=== PATIENT | female | born 1945 | race Caucasian/White ===

== ENCOUNTER → 2017-10-16 13:46 | Outpatient (CLI) | payer MEDICARE, BC, SELFPAY ==
--- NOTE | 2017-10-16 | DI.MG.S_ITS ---
BILATERAL DIGITAL SCREENING MAMMOGRAM 3D/2D WITH CAD: 10/16/2017 CLINICAL: Routine screening. Comparison is made to exams dated: 08/08/2016 mammogram, 07/05/2015 mammogram, and 04/03/2014 mammogram - [facility]. There are scattered fibroglandular elements in both breasts. Current study was also evaluated with a Computer Aided Detection (CAD) system. No significant masses, calcifications, or other findings are seen in either breast. There has been no significant interval change. IMPRESSION: NEGATIVE There is no mammographic evidence of malignancy. A 1 year screening mammogram is recommended. This exam was interpreted at Station ID: [id number]. NOTE: For mammograms, a report in lay terms will be sent to the patient. Approximately 15% of breast malignancies will not be visualized mammographically. In the management of a palpable breast mass, a negative mammogram must not discourage biopsy of a clinically suspicious lesion. Electronically Signed By: Enmanuel ramirez/rosa:10/16/2017 15:38:31 letter sent: Normal Exam ACR BI-RADS Category 1: Negative 3341F
== END ==
PROVIDERS: PCP Family Medicine; Visit Provider Family Medicine
DX: Z12.31 Encounter for screening mammogram for malignant neoplasm of breast (principal)
CPT/HCPCS: 77063; 77067

== ENCOUNTER → 2018-08-26 14:01 | Outpatient (CLI) | payer MEDICARE, BC, SELFPAY ==
--- NOTE | 2018-08-26 | DI.US.S_ITS ---
PROCEDURE: US RENAL COMPLETE INDICATIONS: HYDRONEPHROSIS, history of urinary diversion procedure. TECHNIQUE: Real-time scanning was performed of the kidneys and bladder, with image documentation. COMPARISON: [facility], US, RENAL COMPLETE, 01/27/2017, 13:12. FINDINGS: Kidneys: Kidneys are normal in size. Right kidney measures 8.9 cm long; left kidney measures 8.6 cm long. Right renal cortical thickness is 0.9 cm; left renal cortical thickness is 1.2 cm. Renal cortical echotexture is normal. No hydronephrosis or nephrolithiasis. No suspicious solid mass lesions. Bladder: Neobladder morphology is mildly irregular. There is moderate amount of dependently layering, avascular heterogeneous material which is mobile consistent with debris. Ureteral jets are not visible. A catheter device is partially imaged. Miscellaneous: No free pelvic fluid. IMPRESSION: 1. No evidence of hydronephrosis. 2. A moderate amount of debris is present within the neobladder. Dictated by: Krista Palacios M.D. on 08/26/2018 at 15:49 Approved by: Krista Palacios M.D. on 08/26/2018 at 15:52
== END ==
PROVIDERS: PCP Family Medicine; Visit Provider Surgery
DX: N13.30 Unspecified hydronephrosis (principal)
CPT/HCPCS: 76770

== ENCOUNTER → 2018-10-04 14:10 | Outpatient (CLI) | payer MEDICARE, BC, SELFPAY ==
[2018-10-07 14:34] LABS: Fecal Immunochemical Test NOT DETECTED (NOT DETECTED)
== END ==
PROVIDERS: PCP Family Medicine; Visit Provider Family Medicine
DX: Z12.11 Encounter for screening for malignant neoplasm of colon (principal)
CPT/HCPCS: 82274

== ENCOUNTER → 2018-11-11 14:09 | Outpatient (CLI) | payer MEDICARE, BC, SELFPAY ==
[2018-11-11 15:43] LABS: Appearance Urine UA CLOUDY; Bilirubin Urine UA NEGATIVE (NEGATIVE); Color Urine UA YELLOW; Glucose Urine UA NEGATIVE (Negative); Ketones Urine UA NEGATIVE (NEGATIVE); Leukocyte Esterase Urine UA 2+ (NEGATIVE); Nitrite Urine UA POSITIVE (Negative); Occult Blood Urine UA 3+ (Negative); Protein Urine UA 2+ (Negative); Specific Gravity Urine UA 1.025 (1.000-1.035); Urobilinogen Urine UA 0.2 E.U./dL (0.2)
[2018-11-11 15:50] LABS: WBC Urine >100/HPF (0-5/HPF)
[2018-11-11 15:51] LABS: Bacteria Urine Many (>30); Culture Indicated Urine Specimen Cultured; RBC Urine 10-30/HPF (0-5/HPF); Squamous Epithelial Cell Urine 0-1 /HPF (0-5/HPF)
== END ==
PROVIDERS: PCP Family Medicine
DX: Z98.890 Other specified postprocedural states (principal)
CPT/HCPCS: 81001; 87077; 87086; 87186

== ENCOUNTER → 2018-11-11 16:47 | Outpatient (CLI) | payer MEDICARE, BC, SELFPAY ==
--- NOTE | 2018-11-11 | DI.MG.S_ITS ---
BILATERAL DIGITAL SCREENING MAMMOGRAM 3D/2D WITH CAD: 11/11/2018 CLINICAL: Routine screening. Comparison is made to exams dated: 10/16/2017 mammogram, 08/08/2016 mammogram, and 07/05/2015 mammogram - [facility]. There are scattered fibroglandular elements in both breasts. Current study was also evaluated with a Computer Aided Detection (CAD) system. No significant masses, calcifications, or other findings are seen in either breast. There has been no significant interval change. IMPRESSION: NEGATIVE There is no mammographic evidence of malignancy. A 1 year screening mammogram is recommended. This exam was interpreted at Station ID: [id number]. NOTE: For mammograms, a report in lay terms will be sent to the patient. Approximately 15% of breast malignancies will not be visualized mammographically. In the management of a palpable breast mass, a negative mammogram must not discourage biopsy of a clinically suspicious lesion. Electronically Signed By: Dennis george/rosa:11/11/2018 19:03:01 letter sent: Normal Exam ACR BI-RADS Category 1: Negative 3341F
== END ==
PROVIDERS: PCP Family Medicine; Visit Provider Family Medicine
DX: Z12.31 Encounter for screening mammogram for malignant neoplasm of breast (principal)
CPT/HCPCS: 77063; 77067

== ENCOUNTER → 2019-02-21 13:56 | Outpatient (CLI) | payer MEDICARE, BC, SELFPAY ==
[2019-02-21 15:42] LABS: Appearance Urine UA SL CLOUDY; Bilirubin Urine UA NEGATIVE (NEGATIVE); Color Urine UA YELLOW; Glucose Urine UA NEGATIVE (Negative); Ketones Urine UA NEGATIVE (NEGATIVE); Leukocyte Esterase Urine UA 3+ (NEGATIVE); Nitrite Urine UA NEGATIVE (Negative); Occult Blood Urine UA 3+ (Negative); Protein Urine UA 1+ (Negative); Urobilinogen Urine UA 0.2 E.U./dL (0.2)
[2019-02-21 16:22] LABS: RBC Urine 5-10/HPF (0-5/HPF); WBC Urine 10-30/HPF (0-5/HPF)
[2019-02-21 16:23] LABS: Amorphous Sediment Urine 1+; Bacteria Urine Many (>30); Culture Indicated Urine Specimen Cultured; Squamous Epithelial Cell Urine 0-1 /HPF (0-5/HPF)
== END ==
PROVIDERS: PCP Family Medicine; Visit Provider Physician Assistant Medical
DX: Z98.890 Other specified postprocedural states (principal)
CPT/HCPCS: 81001; 87077; 87086; 87186

== ENCOUNTER → 2019-09-07 14:00 | Outpatient (CLI) | payer MEDICARE, BC, SELFPAY ==
--- NOTE | 2019-09-07 | DI.US.S_ITS ---
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 COMPARISON: [facility], , RENAL COMPLETE, 08/26/2018, 14:21. FINDINGS: Kidneys: Kidneys are normal in size. Right kidney measures 8.7 cm long; left kidney measures 9.2 cm long. Right renal cortical thickness is 1.0 cm; left renal cortical thickness is 1.4 cm. Renal cortical echotexture is normal. No hydronephrosis or nephrolithiasis. No suspicious solid mass lesions. 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 Pre-void bladder volume is 47 mL. No discrete bladder wall abnormality is seen. Pre-void images demonstrate no intraluminal masses or stones. Miscellaneous: No free pelvic fluid. IMPRESSION: No gross abnormality is seen in bilateral kidneys. No gross abnormality is seen in partially distended neobladder. Dictated by: Bairon Gay M.D. on 09/07/2019 at 15:50 Approved by: Bairon Gay M.D. on 09/07/2019 at 15:53
[2019-09-07 15:26] LABS: Add Manual Diff / Slide Review NO; Basophils Absolute Auto 0 /uL (0-100); Basophils Percent Auto 0.5 % (0-2); Eosinophils Absolute Auto 100 /uL (0-450); Eosinophils Percent Auto 2.1 % (2-4); Hematocrit 35.1 % (36-46); Hemoglobin 11.7 g/dL (12.0-16.0); Lymphocytes Absolute Auto 800 /uL (1100-4500); Lymphocytes Percent Auto 14.3 % (25-40); Mean Corpuscular HGB Conc 33.5 % (30-36); Mean Corpuscular Hemoglobin 30.5 PG (26-34); Mean Corpuscular Volume 91.1 fL (80-100); Monocytes Absolute Auto 400 /uL (0-900); Monocytes Percent Auto 8.3 % (3-14); Neutrophils Absolute Auto 4000 /uL (1500-7000); Neutrophils Percent Auto 74.8 % (50-75); Platelet Count 243 X10^3/uL (150-400); Red Blood Cell Count 3.85 X10^6/uL (4.0-5.2); Red Cell Distribution Width 14.5 % (11.6-14.8); White Blood Cell Count 5.3 X10^3/uL (4.5-11.0)
[2019-09-07 15:48] LABS: BUN Creatinine Ratio 23.6 (6-22); Blood Urea Nitrogen 29 mg/dL (7-17); Carbon Dioxide 24 mmol/L (22-32); Chloride 106 mmol/L (98-107); Estimated Glomerular Filt Rate 42.5 mL/min (>60); Glucose 101 mg/dL (80-110); HEMOLYSIS < 15 (0-50); Potassium 4.6 mmol/L (3.4-5.1); Sodium 137 mmol/L (137-145)
[2019-09-07 16:37] LABS: Vitamin B12 > 1000 pg/mL (239-931)
== END ==
PROVIDERS: PCP Family Medicine; Referring Provider Urology; Visit Provider Urology
DX: N30.10 Interstitial cystitis (chronic) without hematuria (principal); Z90.6 Acquired absence of other parts of urinary tract
CPT/HCPCS: 36415; 76770; 80048; 82607; 85025

== ENCOUNTER → 2019-09-22 12:31 | Outpatient (CLI) | payer MEDICARE, BC, SELFPAY ==
[2019-09-22 15:42] LABS: Appearance Urine UA CLOUDY; Bilirubin Urine UA NEGATIVE (NEGATIVE); Color Urine UA YELLOW; Glucose Urine UA NEGATIVE (Negative); Ketones Urine UA TRACE (NEGATIVE); Leukocyte Esterase Urine UA 2+ (NEGATIVE); Nitrite Urine UA NEGATIVE (Negative); Occult Blood Urine UA 3+ (Negative); Protein Urine UA 2+ (Negative); Specific Gravity Urine UA 1.025 (1.000-1.035); Urobilinogen Urine UA 0.2 E.U./dL (0.2)
[2019-09-22 15:56] LABS: pH Urine UA 5.5 (4.5-8.0)
[2019-09-22 16:00] LABS: Amorphous Sediment Urine 1+; Bacteria Urine Moderate (10-30); Culture Indicated Urine Specimen Cultured; Mucus Urine 1+ (Negative); RBC Urine 10-30/HPF (0-5/HPF); Squamous Epithelial Cell Urine 0-1 /HPF (0-5/HPF); WBC Urine >100/HPF (0-5/HPF)
== END ==
PROVIDERS: PCP Family Medicine; Referring Provider Urology; Visit Provider Urology
DX: R30.0 Dysuria (principal)
CPT/HCPCS: 81001; 87077; 87086; 87186

== ENCOUNTER → 2019-12-09 14:17 | Outpatient (CLI) | payer MEDICARE, BC, SELFPAY ==
--- NOTE | 2019-12-09 | DI.MG.S_ITS ---
BILATERAL DIGITAL SCREENING MAMMOGRAM 3D/2D WITH CAD: 12/09/2019 CLINICAL: Routine screening. Comparison is made to exams dated: 11/11/2018 mammogram, 10/16/2017 mammogram, and 08/08/2016 mammogram - [facility]. There are scattered fibroglandular elements in both breasts. Current study was also evaluated with a Computer Aided Detection (CAD) system. There is a new 0.7 cm asymmetry in the left breast posterior depth superior region seen on the mediolateral oblique view only 15.5 cm from the nipple. No other significant masses, calcifications, or other findings are seen in either breast. IMPRESSION: INCOMPLETE: NEEDS ADDITIONAL IMAGING EVALUATION New left breast asymmetry is indeterminate. A diagnostic mammogram and ultrasound is recommended. This exam was interpreted at Station ID: [id number]. NOTE: For mammograms, a report in lay terms will be sent to the patient. Approximately 15% of breast malignancies will not be visualized mammographically. In the management of a palpable breast mass, a negative mammogram must not discourage biopsy of a clinically suspicious lesion. Electronically Signed By: Jose Juan Gale M.D. jr/:12/09/2019 15:59:52 letter sent: Additional Imaging Needed ACR BI-RADS Category 0: Incomplete 3340F
== END ==
PROVIDERS: PCP Family Medicine; Referring Provider Family Medicine; Visit Provider Family Medicine
DX: Z12.31 Encounter for screening mammogram for malignant neoplasm of breast (principal)
CPT/HCPCS: 77063; 77067

== ENCOUNTER → 2020-01-03 14:54 | Outpatient (CLI) | payer MEDICARE, BC, SELFPAY ==
--- NOTE | 2020-01-03 15:11 | DI.MG.S_ITS ---
Patient Name: TAMMY SANTILLAN date: 1945 Sex: F Attending Physician: Christi Indications: Date: 01/03/2020 15:02 At the request of: NGHIA BENITEZ Procedure: MM special view LT UNILATERAL LEFT DIGITAL DIAGNOSTIC MAMMOGRAM 3D/2D WITH ADDITIONAL VIEWS: 01/03/2020 CLINICAL: Additional evaluation requested from prior study. Comparison is made to exams dated: 12/09/2019 mammogram, 11/11/2018 mammogram, 10/16/2017 mammogram, 08/08/2016 mammogram, 07/05/2015 mammogram, and 04/03/2014 mammogram - [facility]. There are scattered fibroglandular elements in left breast. There is a benign 0.7 cm asymmetry in the left breast posterior depth superior region seen on the mediolateral oblique view only. Upon review of multiple prior mammograms dating back to 04/03/2014, this asymmetry does not appear significantly changed in size or shape, and is therefore considered benign. The lesion is slightly more prominent on the current exam and the exam from 12/09/2019, which is most likely due to differences in patient positioning. No other significant masses or calcifications are seen in the breast. IMPRESSION: BENIGN There is no mammographic evidence of malignancy. A 1 year screening mammogram is recommended. This exam was interpreted at Station ID: [id number]. NOTE: For mammograms, a report in lay terms will be sent to the patient. Approximately 15% of breast malignancies will not be visualized mammographically. In the management of a palpable breast mass, a negative mammogram must not discourage biopsy of a clinically suspicious lesion. Electronically Signed By: Teja salazar/rosa:01/03/2020 16:49:18 Continued Report - Page 2 of 2 Patient Name: TAMMY SANTILLAN date: 1945 Sex: F Attending Physician: Christi Indications: Date: 01/03/2020 15:02 At the request of: NGHIA BENITEZ Procedure: MM special view LT letter sent: Normal Exam ACR BI-RADS Category 2: Benign Finding(s) 3342F
== END ==
PROVIDERS: PCP Family Medicine; Referring Provider Family Medicine; Visit Provider Family Medicine
DX: R92.8 Other abnormal and inconclusive findings on diagnostic imaging of breast (principal); N64.89 Other specified disorders of breast
CPT/HCPCS: 77065; G0279

== ENCOUNTER → 2020-02-14 14:32 | Outpatient (CLI) | payer MEDICARE, BC, SELFPAY ==
[2020-02-14 15:26] LABS: BUN Creatinine Ratio 26.3 (6-22); Blood Urea Nitrogen 36 mg/dL (7-17); Calcium 9.5 mg/dL (8.4-10.2); Carbon Dioxide 29 mmol/L (22-32); Chloride 102 mmol/L (98-107); Estimated Glomerular Filt Rate 37.5 mL/min (>60); Glucose 114 mg/dL (80-110); HEMOLYSIS 33 (0-50); Potassium 4.9 mmol/L (3.4-5.1); Sodium 138 mmol/L (137-145)
== END ==
PROVIDERS: PCP Family Medicine; Referring Provider Family Medicine; Visit Provider Family Medicine
DX: K56.609 Unspecified intestinal obstruction, unspecified as to partial versus complete obstruction (principal); R10.9 Unspecified abdominal pain
CPT/HCPCS: 36415; 80048

== ENCOUNTER → 2020-02-17 11:40 | Outpatient (CLI) | payer MEDICARE, BC, SELFPAY ==
--- NOTE | 2020-02-17 13:37 | DI.CT.S_ITS ---
PROCEDURE: CT ABDOMEN PELVIS W CON INDICATIONS: abd pain with intermittent obstruction TECHNIQUE: After the administration of oral and intravenous contrast, 5 mm thick sections acquired from the diaphragms to the symphysis. 5 mm thick coronal and sagittal reformats were performed. For radiation dose reduction, the following was used: automated exposure control, adjustment of mA and/or kV according to patient size. COMPARISON: [facility], CT, IVP (ABD & PEL WWO CONTRAST), 08/12/2013, 11:08. FINDINGS: Image quality: Excellent. ABDOMEN: Lung bases: Minimal atelectasis at the right lung base. No pleural effusion. Heart size is normal. Solid organs: Liver is normal in size and enhancement. Gallbladder is unremarkable. Biliary system is non-dilated. Pancreas enhances normally. Spleen is normal in size and enhancement. No adrenal nodules. Kidneys are normal in size and enhancement, without hydronephrosis. Peritoneum and bowel: Bladder or neobladder and ostomy in the right lower quadrant. Pouch has a trabeculated appearance. Pouch is mildly distended. No contrast is seen in the pouch. Ostomy has a similar appearance to 2014. Calcifications at the left lateral wall are unchanged. No hydroureter. Majority of the contrast is in the distal ileum and extending into the descending colon. No small bowel obstruction. Appendix is absent. Mild diverticulosis. No diverticulitis. Stomach is not distended. No pneumoperitoneum. No free fluid. Nodes and vessels: No retroperitoneal or mesenteric adenopathy. A thickening in the right inferior pelvis is unchanged since 2014. Aorta and inferior vena cava are normal in caliber. Miscellaneous: No ventral hernias. PELVIS: Uterus is absent. Miscellaneous: No inguinal hernias or adenopathy. Bones: No suspicious bony lesions. Sarcopenia. Scoliosis. No vertebral body compression fractures. Left hip total arthroplasty. IMPRESSION: 1. Kock pouch and ostomy in the right lower quadrant have a similar appearance to 2014. No etiology for intermittent bowel obstruction is seen. 2. No small bowel obstruction. No hydronephrosis. No free fluid. Dictated by: Stone Lowe M.D. on 02/17/2020 at 14:29 Approved by: Stone Lowe M.D. on 02/17/2020 at 14:45
== END ==
PROVIDERS: PCP Family Medicine; Referring Provider Family Medicine; Visit Provider Family Medicine
DX: R10.9 Unspecified abdominal pain (principal); K56.609 Unspecified intestinal obstruction, unspecified as to partial versus complete obstruction; Z93.2 Ileostomy status
CPT/HCPCS: 74177; Q9967

== ENCOUNTER → 2020-06-06 09:47 | Outpatient (CLI) | payer MEDICARE, BC, SELFPAY ==
[2020-06-06] MEDS: COVID-19 VACC #1, MRNA(MOD) 100 MCG/0.5 ML VIAL IM (09:55)
== END ==
PROVIDERS: PCP Family Medicine; Visit Provider Internal Medicine
DX: Z23 Encounter for immunization (principal)
CPT/HCPCS: 0011A; 91301

== ENCOUNTER → 2020-07-05 12:55 | Outpatient (CLI) | payer MEDICARE, BC, SELFPAY ==
[2020-07-05] MEDS: COVID-19 VACC #2, MRNA(MOD) 100 MCG/0.5 ML VIAL IM (13:04)
== END ==
PROVIDERS: PCP Family Medicine; Visit Provider Internal Medicine
DX: Z23 Encounter for immunization (principal)
CPT/HCPCS: 0012A; 91301

== ENCOUNTER → 2021-03-14 12:49 | Outpatient (CLI) | payer MEDICARE, BC, SELFPAY ==
[2021-03-14 14:19] LABS: Add Manual Diff / Slide Review NO; Basophils Absolute Auto 100 /uL (0-100); Basophils Percent Auto 0.9 % (0-2); Eosinophils Absolute Auto 200 /uL (0-450); Hematocrit 41.7 % (36-46); Hemoglobin 13.5 g/dL (12.0-16.0); Lymphocytes Absolute Auto 1400 /uL (1100-4500); Lymphocytes Percent Auto 19.6 % (25-40); Mean Corpuscular HGB Conc 32.3 % (30-36); Mean Corpuscular Hemoglobin 29.9 PG (26-34); Mean Corpuscular Volume 92.3 fL (80-100); Monocytes Absolute Auto 600 /uL (0-900); Monocytes Percent Auto 8.2 % (3-14); Neutrophils Absolute Auto 4700 /uL (1500-7000); Neutrophils Percent Auto 68.3 % (50-75); Platelet Count 317 X10^3/uL (150-400); Red Blood Cell Count 4.52 X10^6/uL (4.0-5.2); Red Cell Distribution Width 15.4 % (11.6-14.8); White Blood Cell Count 6.9 X10^3/uL (4.5-11.0)
[2021-03-14 14:24] LABS: Hemoglobin A1C% w Est Avg Glu 5.8 % (4.0-6.0)
[2021-03-14 14:31] LABS: BUN Creatinine Ratio 19.8 (6-22); Blood Urea Nitrogen 39 mg/dL (7-17); Calcium 9.9 mg/dL (8.4-10.2); Carbon Dioxide 22 mmol/L (22-32); Chloride 103 mmol/L (98-107); Estimated Glomerular Filt Rate 24.6 mL/min (>60); Glucose 132 mg/dL (80-110); HEMOLYSIS < 15 (0-50); Potassium 4.5 mmol/L (3.4-5.1); Sodium 137 mmol/L (137-145)
== END ==
PROVIDERS: PCP Family Medicine; Referring Provider Orthopaedic Surgery; Visit Provider Orthopaedic Surgery
DX: R73.9 Hyperglycemia, unspecified (principal); Z01.812 Encounter for preprocedural laboratory examination; N39.0 Urinary tract infection, site not specified
CPT/HCPCS: 36415; 80048; 83036; 85025

== ENCOUNTER → 2021-03-20 11:37 | Outpatient (CLI) | payer MEDICARE, BC, SELFPAY ==
[2021-03-20 12:48] LABS: COVID19 -Nasal RAPID Negative (Negative)
== END ==
PROVIDERS: PCP Family Medicine; Referring Provider Nurse Practitioner Family; Visit Provider Nurse Practitioner Family
DX: Z20.822 Contact with and (suspected) exposure to COVID-19 (principal)
CPT/HCPCS: 87635; C9803

== ENCOUNTER 2021-03-22 06:07 | Inpatient (IN) | payer MEDICARE, BC, SELFPAY ==
[2021-03-19 13:45] VITALS: BMI 23.3
[2021-03-22] VITALS (15 sets, daily range): BP systolic 103–161; BP diastolic 38–95; PULSE 61–92; RESP 9–18; TEMP 36.1–36.8; O2SAT 94–100; BMI 24.5
--- NOTE | 2021-03-22 06:00 | DI.RAD.S_ITS ---
PROCEDURE: XR HIP W PEL IF DONE RT 2V INDICATIONS: postop prosthesis placement TECHNIQUE: AP pelvis and lateral view of the right hip acquired. COMPARISON: [facility], CR, XR PELVIS WITH BILATERAL LATERAL HIPS, 02/25/2021, 14:00. [facility], CR, XR PELVIS 1-2V, 03/22/2021, 9:08. [facility], CR, HIP 2V LEFT, 02/24/2012, 15:32. FINDINGS: Bones: Patient is status post right hip arthroplasty, with hardware components in expected positions. The hip joint appears congruent. The visualized bony structures appear intact. There is prior left total hip arthroplasty with anatomic left hip alignment. Soft tissues: Overlying postoperative changes are noted. No suspicious soft tissue densities. IMPRESSION: Postop changes from right total hip arthroplasty with anatomic alignment. Dictated by: Bairon Gay M.D. on 03/22/2021 at 12:56 Approved by: Bairon Gay M.D. on 03/22/2021 at 12:56
[2021-03-22] MEDS: PREGABALIN 75 MG CAPSULE PO (07:09)
[2021-03-22] MEDS: CELECOXIB 200 MG CAPSULE PO (07:09)
[2021-03-22] MEDS: ACETAMINOPHEN 325 MG TABLET 975 MG PO (07:09)
[2021-03-22] MEDS: LACTATED RINGERS 1,000 ML 42 ML IV ×2 (07:10→09:28)
[2021-03-22] MEDS: VANCOMYCIN 1,000 MG/200 ML PIGGYBACK 200 MG IV (07:10)
--- NOTE | 2021-03-22 07:44 | PM.PREOP ---
Pre-operative Note COVID-19 COVID-19 status: Negative Interval Note History & Physical reviewed/Exam performed by Physician: Yes Changes to H&P: No
--- NOTE | 2021-03-22 07:46 | PM.OP.1 ---
Operative Date/Time/Diagnoses Date of procedure: 03/22/21 Time of procedure: 08:00 Pre-op diagnosis: right hip OA Post-op diagnosis: same Procedure & Clinicians Procedure: Right total hip arthroplasty posterior approach Same procedure as scheduled: Yes Indications: The patient has had progressively worsening right hip pain with radiographic changes consistent with arthritis. Non-operative management has failed and the patient has requested total hip replacement. The risks, benefits and alternatives to surgery were discussed with the patient prior to proceeding. Risks discussed included, but were not limited to, failure to relieve pain, leg length discrepancy, dislocation, stiffness, infection, nerve damage, deep venous thrombosis, pulmonary embolism, stroke, coma, heart attack, permanent paralysis and , as well as the potential need for eventual revision of the prosthetic. Surgeon: Minerva Reynolds Senior Automation Engineer: Sandee Reina Anesthesia Type: Spinal Operative Notes Findings: Severe right hip osteoarthritis, adequate stability and bone quality Closure Type: primary Specimen(s): none sent Prosthetic devices, grafts, tissues, transplants, or devices: [employer]hew 50 R3 cup, 32 x 50 neutral poly liner, size 6 standard offset anthology, 32 +0 Oxinium head Applied: drain(s) Estimated Blood Loss (mL): 250 Blood products transfused: none Procedure in detail: The patient was seen in the pre-operative area, where the patient identified the right hip as the operative site and this was marked with my initials. The patient received pre-operative antibiotics and was taken to the operating room and placed on the operative table in the left lateral decubitus position after satisfactory anesthesia. A homeopathic doctor out was performed. The right leg was prepared from the ankle to the iliac crest with ChloroPrep in the usual fashion and draped through sterile drapes. The hip was approached through an approximately 20 cm incision centered over the greater trochanter and curving gently posteriorly as it went proximally. This was carried sharply to the fascia rohna, which was divided and retracted with a self retaining retractor. The trochanteric bursa was excised with care being taken to avoid the sciatic nerve, which was identified and protected throughout the case. The short external rotators were incised and the capsulomuscular flap was raised and tagged for later repair. The hip was dislocated, and a femoral neck osteotomy performed approximately 15 mm above the lesser trochanter. Retractors were placed around the femur. The canal was opened with a box cutting osteotome, followed by a T handled reamer and a lateralizing reamer. The chili pepper broach was then used, followed by sequential broaching until there was good stability of the broach in the femur. Retractors were placed to expose the acetabulum. The labrum and central soft tissues were removed. Reaming was performed initially going up in 2 mm increments, then 1 mm increments until good bite was obtained with an odd sized reamer. The cup 1 mm larger than the last reamer was then inserted using the appropriate anteversion guides. It was further stabilized with a single screw. A trial neutral liner was placed. The broach was placed in the canal. A trial head and neck were then placed and the hip relocated and checked for leg length and stability. An intraoperative film confirmed the component position and no evidence of fracture. The patient was stable in the position of sleep, of squatting, and could be put through a range of motion with 45 degrees internal rotation without dislocation. At 90 degrees flexion, internal rotation to 70?was possible before dislocation. This was felt to be satisfactory and the appropriate components were opened, and the trials were removed. It was felt that standard anthology would work and I did a standard anthology broaches which were inserted without difficulty. The acetabular liner was impacted into position. The final stem was then impacted into the prepared femoral canal. A brief Betadine soak was performed while trialing with head options. The hip was meticulously irrigated with normal saline. Finally the femoral head was impacted onto the stem. The acetabulum was cleared of all material and the hip relocated one final time. The capsulomuscular flap was then repaired to the greater trochanter though an awl hole using the tag sutures. The short external rotators were repaired with a nonabsorbable suture. A deep drain was placed and brought out anteriorly. The fascia rohan was closed with Vicryl. The subcutaneous layer was closed with barbed sutures and SteriStrips. An Aquacel Ag dressing was applied and the patient was taken to recovery having tolerated the procedure well. Complications: none Post-operative Condition: stable Disposition: Acute Care Plan for aftercare: The patient will be maintained on a standard total hip replacement protocol with weight bearing as tolerated and posterior hip precautions. The patient will receive Aspirin and sequential compression devices for DVT prophylaxis. The patient will be discharged home when safe for the home environment.
--- NOTE | 2021-03-22 08:00 | DI.RAD.S_ITS ---
PROCEDURE: XR PELVIS 1-2V INDICATIONS: INNER OP RT HIP TECHNIQUE: 1 view of the lower pelvis acquired. COMPARISON: [facility], , PELVIS 1 OR 2VW, 08/22/2014, 13:05. FINDINGS: Bones: Patient is status post right total hip arthroplasty, with hardware components in expected positions. The hip joint appears congruent. The visualized bony structures appear intact. There is prior left total hip arthroplasty. Soft tissues: Overlying postoperative changes are noted. No suspicious soft tissue densities. IMPRESSION: Postop changes from right total hip arthroplasty with anatomic right hip alignment. Dictated by: Bairon Gay M.D. on 03/22/2021 at 12:47 Approved by: Bairon Gay M.D. on 03/22/2021 at 12:47
[2021-03-22] MEDS: CEFAZOLIN 1 GM VIAL 2 GM IV (08:05)
[2021-03-22] MEDS: TRANEXAMIC ACID 1,000 MG VIAL 1000 MG INJ ×2 (08:19→09:30)
--- NOTE | 2021-03-22 08:33 | SUR.OPER ---
Lateral on padded OR bed. Gel axillary roll. Arms secured on padded armboard with pillow supporting top arm. Padded hip positioner braces x4 - anterior and posterior chest and pelvis. Additional gel pad used anterior pelvis. Gel pad under bottom leg from knee to foot and secured with tape over sheet.
[2021-03-22] MEDS: BUPIVACAINE LIPOSOME 266 MG/20 ML VIAL INJ (08:39)
[2021-03-22] MEDS: BUPIVACAINE 0.25% (PF) 60 ML, EPINEPHrine 0.3 MG INJ (08:39)
[2021-03-22] MEDS: SODIUM CHLORIDE IRRIG SOLUTION 250 ML, POVIDONE-IODINE SPONGE STICKS 1 APPLIC IRR (08:42)
[2021-03-22] MEDS: ONDANSETRON 4 MG/2 ML INJ IV ×3 (10:22→17:29)
--- NOTE | 2021-03-22 10:38 | SUR.PHASEI ---
medicated with zofran for nausea, stable pacu stay, report attempted, RN unavailable.
[2021-03-22] MEDS: LACTATED RINGERS 1,000 ML 125 ML IV ×2 (12:20→21:02)
[2021-03-22] MEDS: IBUPROFEN 400 MG TABLET PO ×3 (12:32→21:02)
--- NOTE | 2021-03-22 15:10 | PT.IIE ---
Current Diagnoses Unilateral primary osteoarthritis, right hip (03/22/21) Surgery Performed Operation Date: 03/22/21 07:45 Actual Procedures p Total Hip Arthroplasty(Right) - Minerva Reynolds MD Surgical History (Last Updated 03/19/21 @ 14:10 by Zo Bobby, RN) Status post hysterectomy Medical History (Last Updated 03/19/21 @ 14:10 by Zo Bobby, RN) Intermittent small bowel obstruction due to adhesions Osteoarthritis Physical Therapy Inpatient Evaluation/Re-Eval M1 PT/OT-IP Prior Functional Status Start: 03/22/21 16:58 Freq: NEEDED Status: Active Protocol: Document 03/22/21 15:10 AB (Rec: 03/22/21 17:07 AB [email or web address]) Medical Review Prior Functional Status Medical History Reviewed Yes Communication able to make needs known Mobility and Gait pt stated that she is indpeendent with all mobilities and ambulation without AD Social History Household Members spouse Living Arrangements House Number of Floors (Floors) One Floor Number of Stairs To Enter/Railing? 2 steps without rails to enter Home Environment High Toilet,Walk in Shower Home Equipment Front Wheel Walker,Straight Cane,Shower Seat without Backrest,Hand Held Shower,Long Handled Shoe Horn,Supervisor [employer], Sock Aid,Grab Bars In Shower M2 PT-IP Current Condition Start: 03/22/21 16:58 Freq: NEEDED Status: Active Protocol: Document 03/22/21 15:10 AB (Rec: 03/22/21 17:07 AB [id number]) Physical Therapy Current Condition Current Condition Evaluation Date 03/22/21 Treatment Diagnosis s/p R MICHELE posterior approach; difficulty in walking Onset Date 03/22/21 M3 PT-IP Subjective Start: 03/22/21 16:58 Freq: NEEDED Status: Active Protocol: Document 03/22/21 15:10 AB (Rec: 03/22/21 17:07 AB [id number]) Subjective Physical Therapy Visit Type Type Initial Evaluation Visit Start Time 15:10 Visit Stop Time 16:10 Total Visit Minutes 60 Number of CYLINDER MACHINE OPERATOR Visits 0 Physical Therapy Visit Comments Patient Comments agreeable to do PT Therapy Pain Assessment Pain Present Pain Present Denied Pain M4 PT-IP Mobility and Gait Start: 03/22/21 16:58 Freq: NEEDED Status: Active Protocol: Document 03/22/21 15:10 AB (Rec: 03/22/21 17:07 [email or web address]) PT-Bed Mobility Assessment Supine to Sit Supine to Sit Standby Assistance Sit to Supine Sit to Supine Minimal Assistance PT-Transfer Assessment Sit to and From Stand Sit to and from Stand Moderate Assistance,1 Person Assistance,Use of Upper Extremities Equipment Transfer Assistive Device Gait Belt,Front Wheeled Walker Orthotic/Prosthetic Devices or Brace: No Comments Mobility Comments educated pt on hip precautions . BP supine: 138/56. completed supine to sit SBA. pt was able to sit on EOB SBA. c/o dizziness. BP sittin/68. completed sit to stand mod A and cues but with increase dizziness and has to sit back down. pt stated that everything is moving and requested to lay back in bed. scooted towards the HOB SBA. completed sit to supine min A with LE elevation. positioned in bed. BP in bed: 140/57. call light and table placed within reach. caregiver training set up with spouse at 10am tomorrow. PT-Balance Assessment Sitting Balance and Reactions Static Sitting Balance Ability Good Dynamic Sitting Balance Ability Good Standing Balance and Reactions Static Standing Balance Ability Fair Dynamic Standing Balance Ability Fair Device Used FWW M5 PT-IP Objective Assessments Start: 03/22/21 16:58 Freq: NEEDED Status: Active Protocol: Document 03/22/21 15:10 AB (Rec: [facility]21 [facility] Orientation Orientation/Cognition Level of Alertness Alert Orientation Name Language Function Ability No Deficits Noted Safety Awareness Understands Safety Issues Memory Description No Deficits Noted Gross Range of Motion Lower Extremity ROM Assessment Within Functional Limits Strength Lower Extremity Strength Assessment Right Impaired Hip 4-/5 Knee 4-/5 Sensation Assessment Sensation Gross Sensation WNL Muscle Tone Muscle Tone WNL Yes M6 PT-IP Treatment Start: 03/22/21 16:58 Freq: NEEDED Status: Active Protocol: Document 03/22/21 15:10 AB (Rec: 03/22/21 17:[facility] Physical Therapy Treatment Education Education Provided Precautions,Weight Bearing Status,Post-Op Packet,Safety M7 PT-IP Assessment and Plan Start: 03/22/21 16:58 Freq: NEEDED Status: Active Protocol: Document 03/22/21 15:10 AB (Rec: 03/22/21 17:07 [email or web address]) PT Summary Assessment and Plan Potential Rehabilitation Potential Good Status of Condition at Evaluation Evolving Summary Impairments Pain,ROM,Strength,Balance, Coordination,Sensation,Tone, Cognition,Bed Mobility, Transfers,Gait,Activity Tolerance Assessment Summary pt s/o R MICHELE posterior approach POD 1 and unable to tolerate much activity today with c/o dizziness during standing. pt plans to go home and spouse to assist her at home. Caregiver training set up for tomorrow at 10 am. will also need to completed stair climbing training prior to d/c. Goals Bed Mobility Goal Independent Transfer Goal Standby Assistance,Front Wheeled Walker Gait Goal Standby Assistance,Front Wheel Walker Gait Distance 150 Other Goals up/down 2 steps SPC/PULP MAKER min A Days to Meet Goals 5 Frequency of Treatment Frequency Of Treatment Twice a Day Treatment Plan Physical Therapy Treatment Plan Bed Mobility Training,Transfer Training,Gait Training, Therapeutic Exercise,Balance Retraining,Post Op Education, Discharge Planning,Hot or Cold Pack,Neuromuscular Re-ed, Coordination Retraining,Manual Therapy Precautions Posterior Hip Precautions No Hip Flexion > 90 degrees,No Hip Internal Rotation,No Hip Adduction Weight Bearing Status Weight Bearing Status Weight Bear as Tolerated Allowed Weight Bearing Amount (enter % RLE WBAT or #) (%) Recommendations To Nursing Amount of Assist Needed 1 Person Assist Discharge Recommendations PT Discharge Recommendations Home with Assistance, Outpatient PT Transportation Needs at Discharge Private Vehicle
[2021-03-22] MEDS: ACETAMINOPHEN 325 MG TABLET 650 MG PO ×2 (16:21→21:01)
[2021-03-22] MEDS: CEFAZOLIN 2 GM/20 ML SYRINGE IV (16:22)
--- NOTE | 2021-03-22 17:30 | PC.NURSE ---
Addendum entered by Chante Alvarez R.N. 03/22/21 18:45: Pt vomitted large emesis after dinner despite zofran given prior. She denies nausea however. aware. No new orders as of now. Continuous monitoring. Original Note: Pt arrived from PACU at 1130, she is A&OX3, VSS, afebrile on RA. She denies any pain and reports full sensation returned to BLE's. She straight caths at home via a stoma and her home supplies. She straight caths herself for 475 at 1400 and she reports she empties her bladder TID. She denies nausea however vomits x3 immediately after scheduled meds and po intake. Encouraged her to advance diet slowly. LR at 125ml/hr. PT working with patient this afternoon. she states she is able to stand but then sits back down due to dizziness. Hemovac with 100 cc bloody drainage output. aquacel c/d/i. Continuous monitoring.
[2021-03-22] MEDS: DOCUSATE 100 MG CAPSULE PO (21:01)
[2021-03-22] MEDS: ASPIRIN EC 81 MG TABLET PO (21:01)
[2021-03-23] MEDS: IBUPROFEN 400 MG TABLET PO ×4 (00:51→20:21)
[2021-03-23] MEDS: CEFAZOLIN 2 GM/20 ML SYRINGE IV (00:52)
[2021-03-23 05:41] VITALS: BP 127/89; PULSE 77; RESP 16; TEMP 36.2; O2SAT 97
[2021-03-23 06:30] LABS: Hemoglobin 9.6 g/dL (12.0-16.0)
[2021-03-23 08:55] VITALS: PULSE 87; RESP 16; O2SAT 97
[2021-03-23] MEDS: MULTIVITAMIN 1 TABLET 1 TAB PO (09:11)
[2021-03-23] MEDS: CHOLECALCIFEROL (VITAMIN D3) 1,000 UNIT TABLET 4000 UNIT PO (09:12)
[2021-03-23] MEDS: ACETAMINOPHEN 325 MG TABLET 650 MG PO ×2 (09:12→20:21)
[2021-03-23] MEDS: ASCORBIC ACID 500 MG TABLET PO (09:13)
[2021-03-23] MEDS: DOCUSATE 100 MG CAPSULE PO ×2 (09:13→20:21)
[2021-03-23] MEDS: ASPIRIN EC 81 MG TABLET PO ×2 (09:15→20:21)
[2021-03-23 09:39] VITALS: BP 134/47; PULSE 77; RESP 16; TEMP 36.6; O2SAT 97
--- NOTE | 2021-03-23 09:47 | PM.DS.1 ---
History of Present Illness History of Present Illness Date Patient Seen: 03/23/21 Time Patient Seen: 09:49 Chief complaint: Right hip pain s/p right MICHELE Narrative: The patient is complaining of mild right hip pain this morning. She notes that yesterday she was very dizzy and felt like she was going to pass out when she stood up. She is concerned about passing physical therapy making sure she is safe to go home. She denies any new numbness or tingling. No fevers, chills, night sweats. Discharge Providers Provider Date of admission: 03/22/21 06:07 Discharge Date: 03/23/21 Primary care physician: Jose Juan Barraza MD Consults: 03/22/21 06:00 Consult to Anesthesiology Routine Comment: Consulting Provider: Anesthesiologist Reason for consultation: Regional block for post operative pain control 03/22/21 11:33 Consult to Discharge Planning Routine Comment: Consult to Physical Therapy Evaluate & Treat Comment: Physician Instructions: post op MICHELE protocol Consult to Respiratory Therapy Evaluate & Treat Comment: Physician Instructions: Evaluate and treat Discharge provider: Sandee Reina PA-C Summary Hospital Course Discharge Diagnosis: Right hip osteoarthritis Hospital Course: Date of procedure: 03/22/21 Time of procedure: 08:00 Procedure & Clinicians Procedure: Right total hip arthroplasty posterior approach Same procedure as scheduled: Yes Indications: The patient has had progressively worsening right hip pain with radiographic changes consistent with arthritis. Non-operative management has failed and the patient has requested total hip replacement. The risks, benefits and alternatives to surgery were discussed with the patient prior to proceeding. Risks discussed included, but were not limited to, failure to relieve pain, leg length discrepancy, dislocation, stiffness, infection, nerve damage, deep venous thrombosis, pulmonary embolism, stroke, coma, heart attack, permanent paralysis and , as well as the potential need for eventual revision of the prosthetic. Surgeon: Minerva Reynolds Aircraft Instrument Repairer: Sandee Reina Anesthesia Type: Spinal Operative Notes Findings: Severe right hip osteoarthritis, adequate stability and bone quality Closure Type: primary Specimen(s): none sent Prosthetic devices, grafts, tissues, transplants, or devices: Reynolds [employer] Nephew 50 R3 cup, 32 x 50 neutral poly liner, size 6 standard offset anthology, 32 +0 Oxinium head Applied: drain(s) Estimated Blood Loss (mL): 250 Blood products transfused: none Status at Discharge Cognitive/behavioral status at discharge: oriented Functional status at discharge: uses cane/walker Overall status at discharge: patient is progressing back to baseline Exam Vital Signs (past 8 hours): - 03/23/21 05:41 03/23/21 08:55 Temperature 97.2 F L Pulse Rate 77 87 Respiratory Rate 16 16 Blood Pressure 127/89 Pulse Oximetry 97 97 Oxygen Delivery Method Room Air Oxygen Flow Rate 0 Narrative Exam Narrative: Pleasant 75-year-old female, resting comfortably in bed, no acute distress. Dressing over the incision is clean dry intact. Her drain dressing is at somewhat saturated with blood. Bilateral lower extremity motor functions are grossly intact. Sensation is grossly intact to light touch in bilateral lower extremities. Calves are soft Objective Labs Result Diagrams: 03/23/21 06:06 Labs: Laboratory Results - last 24 hr 03/23/21 06:06 Hgb 9.6 L Hct 29.0 L PFSH Medical History Intermittent small bowel obstruction due to adhesions Osteoarthritis Surgical History History of bilateral tubal ligation History of construction of external stoma of urinary system (~1988) History of hysterectomy History of total left hip replacement Hx of appendectomy Hx of bladder repair surgery Hx of breast biopsy Hx of resection of small bowel Status post hysterectomy Family History Father Hypertension Stroke Sister Age: 67 Pacemaker Heart disease Social History marital status: household members: spouse Smoking Status: Never smoker alcohol intake: current substance use type: does not use Discharge Assessment & Plan Assessment and Plan Assessment: Stable status post right total hip arthroplasty Plan of Treatment: -mobilize with PT. Weightbearing as tolerated with front wheel walker. Maintain posterior hip precautions x6 weeks. -continue with current pain regimen and DVT prophylaxis -DC home after cleared by 2 sessions of PT. -DC Hemovac drain after morning session of PT Discharge Plan Discharge Plan Patient Disposition: Home Discharge orders & Medications Prescriptions: New acetaminophen 500 mg capsule 500 mg PO Q4H MDD Max 3000 mg per day PRN (Reason: fever or pain) Qty: 90 0RF aspirin 81 mg Tablet,Delayed Release (Dr/Ec) 81 mg PO BID 42 Days Qty: 84 0RF Rx Instructions: Prevent blood clots docusate sodium 100 mg Capsule 100 mg PO BID PRN (Reason: Constipation from narcotic pain meds) Qty: 20 0RF ibuprofen 400 mg Tablet 400 mg PO Q4HR MDD Max 2400 mg per day PRN (Reason: Pain/inflammation) Qty: 90 0RF oxycodone 5 mg Tablet See Rx Instructions .ROUTE .COMPLEX PRN (Reason: Pain, Moderate (4-6)) Qty: 20 0RF Rx Instructions: 0.5-1 tablet by mouth every 4 hours as needed for moderate to severe postop pain ondansetron 4 mg Tablet,Disintegrating 4 mg PO Q4HR PRN (Reason: Nausea) Qty: 10 0RF Continued CALCIUM CARBONATE (#CALCIUM) 1,200 mg PO QDAY Qty: 0 0RF ascorbic acid (vitamin C) 500 MG tablet 500 mg PO QDAY Qty: 0 0RF FOLIC ACID/VIT A/VIT B1/VIT (#MULTIVITAMIN) 1 tab PO QDAY Qty: 0 0RF cholecalciferol (vitamin D3) [Vitamin D3] 2,000 UNIT capsule 4,000 - 5,000 unit PO QDAY Qty: 0 0RF Rx Instructions: 4,000 Vitamin B-12 50 MCG tablet 50 mcg PO DAILY Qty: 0 0RF Premarin 0.625 mg tablet 0.3125 mg PO QDAY 0RF d-mannose 500 mg Capsule 500 mg PO DAILY 0RF Follow up/Referrals: Jose Juan Barraza MD [Primary Care Provider] - Minerva Reynolds MD [Physician] - (10-14 days for postoperative visit) Diet/Activity/Treatments Diet: Diet as Tolerated and Regular Other treatments: Medications: -Aspirin 81mg twice daily x6 weeks to prevent blood clots. -OTC Tylenol 500 mg 1 tablet every 4 hours as needed for pain/fever. Max 6 tablets per day. -Ibuprofen 400 mg 1 tablet every 4 hours as needed for pain/inflammation. Max 2,400 mg per day. -Oxycodone 5 mg take 1-2 tablets every 4 hours as needed for moderate-severe pain (narcotic pain medication). -As needed medications: -Ducolax and /or MiraLax as needed for constipation from narcotic pain medications. -Pepcid AC as needed for stomach upset (usually from aspirin or ibuprofen). Dressing/Wound care: -Keep Aquacell dressing in place until postoperative follow-up office visit. -Okay to shower. Keep wound out of direct water stream. No soaking or submerging until all the scabs fall off (approximately 6 weeks). -Please call the office if dressing becomes wet, soiled, or saturated. Activities: -Maintain posterior hip precautions x6 weeks. -Weight-bearing as tolerated. Use front wheeled walker, and progress to cane when safe. -Continue with home exercises as directed by your physical therapist. -Elevate ?toes above the nose if you have significant swelling in your lower leg. (A wedge pillow is easiest.) -Ice your incision as needed for pain/inflammation/swelling. Protect your skin with a folded pillowcase. Follow-up: -Follow-up with your surgeon or PA in the office in 10-14 days after surgery. -Follow-up with your surgeon 6 weeks postoperatively. Call the office if you have chest pain, shortness of breath, significant swelling that will not resolve with elevating, fever over 101?, significantly worsening pain. [facility]: [phone] Skin/Wound/Dressing Care Report to your healthcare provider any signs of infection, such as:: chills, fever, night sweats, unusual drainage and unusual redness Visit Report/Discharge Packet Instructions: DI for Hip Replacement, DI for Prescription Opioid Use Stand Alone Forms: Surgery Discharge Discharge Data Primary Care Provider: Jose Juan Barraza
--- NOTE | 2021-03-23 10:29 | PT.IPTN ---
Current Diagnoses Unilateral primary osteoarthritis, right hip (03/22/21) Surgery Performed Operation Date: 03/22/21 07:45 Actual Procedures p Total Hip Arthroplasty(Right) - Minerva Reynolds MD Physical Therapy Treatment Note M2 PT-IP Current Condition Start: 03/22/21 16:58 Freq: NEEDED Status: Active Protocol: Document 03/22/21 15:10 AB (Rec: 03/22/21 17:07 AB [id number]) Physical Therapy Current Condition Current Condition Evaluation Date 03/22/21 Treatment Diagnosis s/p R MICHELE posterior approach; difficulty in walking Onset Date 03/22/21 M3 PT-IP Subjective Start: 03/22/21 16:58 Freq: NEEDED Status: Active Protocol: Document 03/23/21 10:01 KS (Rec: 03/23/21 12:48 KS [id number]) Subjective Physical Therapy Visit Type Type Treatment Note Visit Start Time 10:01 Visit Stop Time 10:29 Total Visit Minutes 28 Number of MEDICAL TECHNOLOGIST PRN Visits 1 Physical Therapy Visit Comments Patient Comments agreeable to do PT M4 PT-IP Mobility and Gait Start: 03/22/21 16:58 Freq: NEEDED Status: Active Protocol: Document 03/23/21 10:01 KS (Rec: 03/23/21 12:48 KS [id number]) PT-Bed Mobility Assessment Supine to Sit Supine to Sit Contact Guard Assistance,1 Person Assistance Sit to Supine Sit to Supine Minimal Assistance,1 Person Assistance,Head of Bed Elevated Scooting Scooting to Edge of Bed Contact Guard Assistance Scooting Up and Down in Bed Contact Guard Assistance PT-Transfer Assessment Sit to and From Stand Sit to and from Stand Minimal Assistance,1 Person Assistance,Use of Upper Extremities Equipment Transfer Assistive Device Gait Belt,Front Wheeled Walker Orthotic/Prosthetic Devices or Brace: No Transfers Transfer Destination Bed Transfer Ability Level of Assist Minimal Assistance,1 Person Assistance,Use of Upper Extremities Comments Mobility Comments Pt in bed upon arrival from therapy and able to recall precautions. Pt spouse present for caregiver training. CGA for sup<>sit and scooting EOB. Educated pts on proper gaitbelt application and guarding for sit<>Stand. Min A for sit<>stand w/ FWW. Upon standing, pt c/o dizziness BP: 110/71. Pt requested to sit. She then sit <>Stand again Min A w/ FWW and continued to experience dizziness but was able to take 3 steps laterally towards HOB . Min A for sit<>sup for LE assistance into bed. Pt requested to be done with PT and left in bed w/ all needs in reach. Gait Assessment Gait Gait Assistance Required: Minimum Assistance,1 Person Assist Distance (Feet) 3 Able to Maintain Weight Bearing Status Yes During Gait Assistive Devices Assistive Device Gait Belt,Front Wheeled Walker Orthotic/Prosthetic Devices or Brace: No Factors Limiting Gait Function Factors Limiting Gait Function Decreased Activity Tolerance, Decreased Strength,Pain,Poor Balance Comments Gait Comments 3 steps laterally towards HOB w/ FWW Min A. Unable to ambulate due to dizziness this AM. PT-Balance Assessment Sitting Balance and Reactions Static Sitting Balance Ability Good Dynamic Sitting Balance Ability Good Standing Balance and Reactions Static Standing Balance Ability Fair Dynamic Standing Balance Ability Fair Device Used FWW M5 PT-IP Objective Assessments Start: 03/22/21 16:58 Freq: NEEDED Status: Active Protocol: Document 03/22/21 15:10 AB (Rec: 03/22/21 17:07 AB [id number]) Orientation Orientation/Cognition Level of Alertness Alert Orientation Name Language Function Ability No Deficits Noted Safety Awareness Understands Safety Issues Memory Description No Deficits Noted Gross Range of Motion Lower Extremity ROM Assessment Within Functional Limits Strength Lower Extremity Strength Assessment Right Impaired Hip 4-/5 Knee 4-/5 Sensation Assessment Sensation Gross Sensation WNL Muscle Tone Muscle Tone WNL Yes M6 PT-IP Treatment Start: 03/22/21 16:58 Freq: NEEDED Status: Active Protocol: Document 03/23/21 10:01 KS (Rec: 03/23/21 12:48 KS [id number]) Physical Therapy Treatment Education Education Provided Precautions,Weight Bearing Status,Post-Op Packet,Safety M7 PT-IP Assessment and Plan Start: 03/22/21 16:58 Freq: NEEDED Status: Active Protocol: Document 03/23/21 10:01 KS (Rec: 03/23/21 12:48 KS [id number]) PT Summary Assessment and Plan Potential Rehabilitation Potential Good Status of Condition at Evaluation Evolving Summary Impairments Pain,ROM,Strength,Balance, Coordination,Sensation,Tone, Cognition,Bed Mobility, Transfers,Gait,Activity Tolerance Assessment Summary Pt continues to be limited in mobility due to dizziness when standing. CGA to Min A for bed mobility, Min A and cues for sit<>stand. Pt only able to tolerate 3 steps laterally and required Min A for FWW management. Pts able to apply gaitbelt and assist w / sit<>Stand, but will need to help pt complete ambulation and stair training prior to d/ c. Will continue to progress. Goals Bed Mobility Goal Independent Transfer Goal Standby Assistance,Front Wheeled Walker Gait Goal Standby Assistance,Front Wheel Walker Gait Distance 150 Other Goals up/down 2 steps SPC/SWEATBAND SEPARATOR min A Days to Meet Goals 5 Frequency of Treatment Frequency Of Treatment Twice a Day Treatment Plan Physical Therapy Treatment Plan Bed Mobility Training,Transfer Training,Gait Training, Therapeutic Exercise,Balance Retraining,Post Op Education, Discharge Planning,Hot or Cold Pack,Neuromuscular Re-ed, Coordination Retraining,Manual Therapy Precautions Posterior Hip Precautions No Hip Flexion > 90 degrees,No Hip Internal Rotation,No Hip Adduction Weight Bearing Status Weight Bearing Status Weight Bear as Tolerated Allowed Weight Bearing Amount (enter % RLE WBAT or #) (%) Recommendations To Nursing Amount of Assist Needed 1 Person Assist Discharge Recommendations PT Discharge Recommendations Home with Assistance, Outpatient PT Transportation Needs at Discharge Private Vehicle
--- NOTE | 2021-03-23 10:40 | PC.NURSE ---
pt up in chair with PT. pain level 1 after medicated with tylenol
--- NOTE | 2021-03-23 10:45 | PC.NURSE ---
Addendum entered by Olive Badillo R.N. 03/23/21 17:55: Pt having dinner without nausea and vomiting, denies pain no other c/0 cms intact. Original Note: pt to be discharged today, cont' feeling nauseated and some dizzyines working with PT. PAC aware will re-evalluate after PT this afternoon
--- NOTE | 2021-03-23 11:04 | CM.DANOTE ---
DCP: Case received, EMR reviewed and met with patient. Spouse, Shamir, was also at bedside. Introduced self and role. Was able to obtain information regarding patient's baseline activity status prior to hospitalization. DCP assessment completed with information currently available. Patient is a 75 year old female who admitted yesterday morning to the care of the orthopedic team. PCP: Dr. Barraza. Payer: confirmed: Medicare/BCBS Out of [facility]. Patient came to the hospital for a surgical procedure. She had right hip arthroplasty. Patient has history of osteoarthritis. Patient has ostomy, and self caths as well due to chronic urinary issues. Met with patient and spouse in the room. Patient is pleasant, alert and oriented. Her and her spouse reside here in [place]. She is independent at her baseline. Her and her have been active hikers. P: Patient has discharge orders for home today, but became dizzy and nauseated when getting up, and was unable to do first session with P.T. P.T. will come back this afternoon to see how she does. Sandee Reina, PAC, is aware. Moraima Merino RN/Dinkey Operator Slate Discharge Planning/Care Management Advanced directive, confirm from FAMILY Start: 03/22/21 15:27 Freq: Q24H Status: Active Protocol: Document 03/22/21 19:00 MW (Rec: 03/23/21 01:59 MW [id number]) Advance Directive, confirm on record Time 19:00 Person contacted pt Copy received No CM Discharge Assessment Start: 03/23/21 11:02 Freq: Status: Active Protocol: Document 03/23/21 11:02 (Rec: 03/23/21 11:03 [id number]) Discharge Planning Assessment Assigned Leaflet Or Newspaper Deliverer Moraima Merino RN/Dinkey Operator Slate Advance Directives? Yes Advance Directives on File No History Provided By Patient,Medical Record Prior Living Arrangements House Household Members spouse Type of transporation used prior to Drives own vehicle admit Independent with ADL's Yes Is patient alert and oriented? Yes Caregiver for Another No DME Already Rented / Owned FWW / Walker,Cane Barriers to Discharge No Discharge Plan Home Transportation Arrangement Spouse Referrals Initiated None needed Whiteboard Updated in Patient Room with Yes name and ext. # of Leaflet Or Newspaper Deliverer Review Status In Process Next Review Type Continued Stay Review Pre-Anesthesia Assessment Start: 03/19/21 13:45 Freq: Status: Active Protocol: Document 03/19/21 13:45 CAB (Rec: 03/19/21 14:22 CAB [id number]) Pre-Anesthesia Assessment Patient Information Reviewed Via Phone Assessment Assessment Completed With Patient Diagnostic Results BMP/CMP,CBC Comment Labs only @ 03/14/21, COVID screen @ 03/20/21 Primary Care Provider Jose Juan Barraza Seen Specialist in Last 12 Months Yes Specialist Seen Orthopedist,Urologist Primary Language Filipino Castings Drafter Required No Height 5 ft 4 in Weight 136 lb Body Mass Index (BMI) 23.3 Hearing Ability Normal Visual Assist Magnifying Glass Dentition Type Teeth, Natural Present Barriers to Learning None Hx Anesthesia Reactions No: Spinal - aware of pounding on hip during LT MICHELE Hx Family Anesthesia Reaction Yes: Sister very hard to put under Hx Malignant Hyperthermia No Hx Blood Transfusions Yes: Unsure, possible with abdominal surgeries Hx Blood Transfusion Reaction No Anesthesia Review Requested No alcohol intake current alcohol intake frequency holidays/special occasions only Smoking Status Never smoker Substance Use Type does not use Pain Present Pain Reported Musculoskeletal Symptoms Abnormal Gait,Difficulty Walking,Joint Pain History of Falling (Recent or History of No ) Patient is completely paralyzed or No completely immobile Mental Status Oriented to own ability Is patient on oxygen? No Does patient have BALLESTEROS/SOB No Hx Sleep Apnea No Currently Taking a Beta Angelina No Hx Chest Pain No Hx SOB No Hx Syncope or Dizziness No Anti-Coagulant Therapy No Has a Ct Technologist No Cardiac Testing No Hx Pacemaker/ICD No Pacemaker Rep Required? No Cardiac Clearance Received Not Applicable Diet Type At Home Regular dysphagia No Urinary Catheter Present Yes Hx Urinary Self Catheterization Yes: Pt has a urinary stoma, self cath Diabetes No HgbA1C 5.8 Date 03/14/21 Patient No Lactating No Hx Drug Resistant Organism No Presence of External or Internal Medical Yes: Left prosthesis Devices Have you had any close contact with No someone diagnosed with COVID-19? Received a COVID vaccine? Yes Received all doses? Yes Marital Status Lives With spouse Prior Living Arrangements House Number of Floors (Floors) One Floor Support System Spouse Does the Patient Have Assistance After Yes Surgery Patient Discharge Plan Description Return Home Comment Pt advised 1-2 day length of stay per surgeon Feels Safe in Current Environment Yes Been Physically Hurt or Threatened By a No Person in Current Environment Do you have thoughts of harming yourself None or others? Are you currently considering suicide? No Do you have a plan to hurt yourself or No Plan others? Do You Have Any Spiritual Beliefs That No May Affect Your HC Choices? Do You Have Any Cultural Practices That No May Affect Your HC Choices? Comment Latter Day Who Can We Speak to About Patient's Care Family, friends Identifying Code for Release of Patient Declines to issue Information Health Care Proxy/Next of Kin Leyda (husband0 Health Care Proxy Emergency Contact Name Leyda (husband0 Emergency Contact Advance Directives? Yes Advance Directives on File No Requested Patient Bring Advanced Yes Directives DOS Power of Requirements Engineer Yes PAC Instructions Do not shave/clip surgical site,Durable medical equipment ,Medications to take/avoid, Nasal antibiotic,No ETOH/ petroleum product on skin DOS, NPO,Post-op transportation,Pre -surgical wash,Sensory aids, Sturdy shoes/comfortable clothes,Do not bring valuables and remove jewelry
[2021-03-23 14:00] VITALS: BP 127/51; PULSE 72; RESP 16; TEMP 37.1; O2SAT 100
--- NOTE | 2021-03-23 14:53 | PT.IPTN ---
Current Diagnoses Unilateral primary osteoarthritis, right hip (03/22/21) Surgery Performed Operation Date: 03/22/21 07:45 Actual Procedures p Total Hip Arthroplasty(Right) - Minerva Reynolds MD Physical Therapy Treatment Note M2 PT-IP Current Condition Start: 03/22/21 16:58 Freq: NEEDED Status: Active Protocol: Document 03/22/21 15:10 AB (Rec: 03/22/21 17:07 AB [id number]) Physical Therapy Current Condition Current Condition Evaluation Date 03/22/21 Treatment Diagnosis s/p R MICHELE posterior approach; difficulty in walking Onset Date 03/22/21 M3 PT-IP Subjective Start: 03/22/21 16:58 Freq: NEEDED Status: Active Protocol: Document 03/23/21 14:28 KS (Rec: 03/23/21 16:25 KS [id number]) Subjective Physical Therapy Visit Type Type Treatment Note Visit Start Time 14:28 Visit Stop Time 14:53 Total Visit Minutes 25 Number of NETWORK INTER[employer]HIP Visits 2 Physical Therapy Visit Comments Patient Comments agreeable to do PT. Spouse present for continued training . M4 PT-IP Mobility and Gait Start: 03/22/21 16:58 Freq: NEEDED Status: Active Protocol: Document 03/23/21 14:28 KS (Rec: 03/23/21 16:25 KS [id number]) PT-Bed Mobility Assessment Supine to Sit Supine to Sit Contact Guard Assistance,1 Person Assistance Sit to Supine Sit to Supine Minimal Assistance,1 Person Assistance,Head of Bed Elevated Scooting Scooting to Edge of Bed Contact Guard Assistance Scooting Up and Down in Bed Contact Guard Assistance PT-Transfer Assessment Sit to and From Stand Sit to and from Stand Minimal Assistance,1 Person Assistance,Use of Upper Extremities Equipment Transfer Assistive Device Gait Belt,Front Wheeled Walker Orthotic/Prosthetic Devices or Brace: No Transfers Transfer Destination Bed Transfer Ability Level of Assist Minimal Assistance,1 Person Assistance,Use of Upper Extremities Comments Mobility Comments Pt in bed upon arrival from therapy w/ in room. Pts spouse able to apply gaitbelt w/ cues. Pt recalled 3/3 precations. CGA for sup<> sit and scooting EOB. Min A and cues for sit<>Stand w/ FWW , spouse provided appropriate assist. Pt then performed 30 seconds weight shifting followed by [address]. She then ambulated ~12 ft w/ FWW CGA to Min A for balance and FWW management. Pt has WBOS and decreased stride and foot clearance and fatigued quickly requesitng to get back in bed . Min A for sit<>sup for LE guidance. Pt left in bed w/ all needs in reach. Gait Assessment Gait Gait Assistance Required: Contact Guard Assist,Minimum Assistance,1 Person Assist Distance (Feet) 12 Able to Maintain Weight Bearing Status Yes During Gait Assistive Devices Assistive Device Gait Belt,Front Wheeled Walker Orthotic/Prosthetic Devices or Brace: No Gait Deviations General Gait Pattern Antalgic,Decreased Stride Length,Decreased Feet Clearance,Wide Based Gait Factors Limiting Gait Function Factors Limiting Gait Function Decreased Activity Tolerance, Decreased Strength,Pain,Poor Balance Comments Gait Comments Pt ambulated ~12 ft w/ FWW and CGA to Min A provided by [employer] and pts . Stair Climbing Assessment Comments Stair Climbing Comments Not assessed, but will need to complete w/ spouse prior to d /c. PT-Balance Assessment Sitting Balance and Reactions Static Sitting Balance Ability Good Dynamic Sitting Balance Ability Good Standing Balance and Reactions Static Standing Balance Ability Fair Dynamic Standing Balance Ability Fair Device Used FWW M5 PT-IP Objective Assessments Start: 03/22/21 16:58 Freq: NEEDED Status: Active Protocol: Document 03/22/21 15:10 AB (Rec: 03/22/21 17:07 AB [id number]) Orientation Orientation/Cognition Level of Alertness Alert Orientation Name Language Function Ability No Deficits Noted Safety Awareness Understands Safety Issues Memory Description No Deficits Noted Gross Range of Motion Lower Extremity ROM Assessment Within Functional Limits Strength Lower Extremity Strength Assessment Right Impaired Hip 4-/5 Knee 4-/5 Sensation Assessment Sensation Gross Sensation WNL Muscle Tone Muscle Tone WNL Yes M6 PT-IP Treatment Start: 03/22/21 16:58 Freq: NEEDED Status: Active Protocol: Document 03/23/21 14:28 KS (Rec: 03/23/21 16:25 KS [id number]) Physical Therapy Treatment Education Education Provided Precautions,Weight Bearing Status,Post-Op Packet,Safety Other Treatments Other Treatment Performed Continued caregiver training w / pts spouse. He is able to apply gait belt, assist w/ sit <>stand and ambulation and sit <>sup. Will need to cover further ambulaton distance and stairs. M7 PT-IP Assessment and Plan Start: 03/22/21 16:58 Freq: NEEDED Status: Active Protocol: Document 03/23/21 14:28 KS (Rec: 03/23/21 16:25 KS [id number]) PT Summary Assessment and Plan Potential Rehabilitation Potential Good Status of Condition at Evaluation Evolving Summary Impairments Pain,ROM,Strength,Balance, Coordination,Sensation,Tone, Cognition,Bed Mobility, Transfers,Gait,Activity Tolerance Assessment Summary Pt showed some improvement w/ tolerance for activity today. Continues to require CGA to Min A for bed mobility. Min A for sit<>stand. Tolertated ~12 ft ambulation w/ FWW CGA to Min A w/ cues for FWW management and sequencing. Fatigued quickly. Pts sopuse able to assist w/ gaitbelt, bed mobility, sit<>stand and ambulation but will need to practice again and cover further ambulation and stair training. Pt will need to complete 2 steps w/ SPC/PROCESS STRIPPER prior to d/c home. Goals Bed Mobility Goal Independent Transfer Goal Standby Assistance,Front Wheeled Walker Gait Goal Standby Assistance,Front Wheel Walker Gait Distance 150 Other Goals up/down 2 steps SPC/PROCESS STRIPPER min A Days to Meet Goals 5 Frequency of Treatment Frequency Of Treatment Twice a Day Treatment Plan Physical Therapy Treatment Plan Bed Mobility Training,Transfer Training,Gait Training, Therapeutic Exercise,Balance Retraining,Post Op Education, Discharge Planning,Hot or Cold Pack,Neuromuscular Re-ed, Coordination Retraining,Manual Therapy Precautions Posterior Hip Precautions No Hip Flexion > 90 degrees,No Hip Internal Rotation,No Hip Adduction Weight Bearing Status Weight Bearing Status Weight Bear as Tolerated Allowed Weight Bearing Amount (enter % RLE WBAT or #) (%) Recommendations To Nursing Amount of Assist Needed 1 Person Assist Discharge Recommendations PT Discharge Recommendations Home with Assistance, Outpatient PT Transportation Needs at Discharge Private Vehicle
[2021-03-23 18:00] VITALS: BP 149/71; PULSE 74; RESP 18; TEMP 36.9; O2SAT 99
[2021-03-23 20:50] VITALS: BP 141/68; PULSE 75; RESP 14; TEMP 36.9; O2SAT 97
[2021-03-24 00:25] VITALS: BP 155/66; PULSE 75; RESP 16; TEMP 36.2; O2SAT 95
[2021-03-24] MEDS: IBUPROFEN 400 MG TABLET PO ×3 (00:44→09:03)
[2021-03-24 05:30] VITALS: BP 146/76; PULSE 79; RESP 14; TEMP 36.2; O2SAT 95
[2021-03-24 08:34] VITALS: BP 152/59; PULSE 81; RESP 14; TEMP 37; O2SAT 96
[2021-03-24] MEDS: CHOLECALCIFEROL (VITAMIN D3) 1,000 UNIT TABLET 4000 UNIT PO (09:02)
[2021-03-24] MEDS: ASPIRIN EC 81 MG TABLET PO (09:02)
[2021-03-24] MEDS: DOCUSATE 100 MG CAPSULE PO (09:03)
[2021-03-24] MEDS: CALCIUM CARBONATE 600 MG TABLET 1200 MG PO (09:03)
[2021-03-24] MEDS: CYANOCOBALAMIN (VITAMIN B-12) 100 MCG TABLET 50 MCG PO (09:03)
[2021-03-24] MEDS: MULTIVITAMIN 1 TABLET 1 TAB PO (09:03)
[2021-03-24] MEDS: ACETAMINOPHEN 325 MG TABLET 650 MG PO (09:03)
[2021-03-24] MEDS: ASCORBIC ACID 500 MG TABLET PO (09:03)
--- NOTE | 2021-03-24 10:35 | PT.IPTN ---
Current Diagnoses Unilateral primary osteoarthritis, right hip (03/22/21) Surgery Performed Operation Date: 03/22/21 07:45 Actual Procedures p Total Hip Arthroplasty(Right) - Minerva Reynolds MD Physical Therapy Treatment Note M2 PT-IP Current Condition Start: 03/22/21 16:58 Freq: NEEDED Status: Active Protocol: Document 03/22/21 15:10 AB (Rec: 03/22/21 17:07 AB [id number]) Physical Therapy Current Condition Current Condition Evaluation Date 03/22/21 Treatment Diagnosis s/p R MICHELE posterior approach; difficulty in walking Onset Date 03/22/21 M3 PT-IP Subjective Start: 03/22/21 16:58 Freq: NEEDED Status: Active Protocol: Document 03/24/21 10:35 DLM (Rec: 03/24/21 10:48 DLM [id number]) Subjective Physical Therapy Visit Type Type Treatment Note Visit Start Time 09:45 Visit Stop Time 10:35 Total Visit Minutes 50 Number of NEEDLEMAKER Visits 0 Physical Therapy Visit Comments Patient Comments Pt reports feeling better today. Pt and Spouse feel they are ready for discharge home today. Her Spouse is prepared to assist her at home as needed. Patient Goals Discharge home Therapy Pain Assessment Pain When Pain Assessed During Mobility Pain Present Pain Present Pain Reported Location r hip Intensity 3 Scale Used Numeric (0 - 10) Description Aching,With Movement Pain Behaviors Guarding Pain Management Techniques Apply Cold,Re-positioning M4 PT-IP Mobility and Gait Start: 03/22/21 16:58 Freq: NEEDED Status: Active Protocol: Document 03/24/21 10:35 DLM (Rec: 03/24/21 10:48 DLM [id number]) PT-Bed Mobility Assessment Supine to Sit Supine to Sit Independent Sit to Supine Sit to Supine Independent Scooting Scooting to Edge of Bed Independent Scooting Up and Down in Bed Independent PT-Transfer Assessment Sit to and From Stand Sit to and from Stand Standby Assistance,Use of Upper Extremities Equipment Transfer Assistive Device Gait Belt,Front Wheeled Walker Transfers Transfer Destination Bed,Chair,Toilet Transfer Technique Stand Pivot Transfer Ability Level of Assist Standby Assistance,Use of Upper Extremities Comments Mobility Comments Pt up to toilet for BM at the start and end of this visit. She needs verbal cuing for safe use of UE's to help with sit-stand. She tends towards pulling up on FWW without reminders. Gait Assessment Gait Gait Assistance Required: Standby Assistance Distance (Feet) 22 Able to Maintain Weight Bearing Status Yes During Gait Assistive Devices Assistive Device Gait Belt,Front Wheeled Walker Gait Deviations General Gait Pattern Antalgic,Decreased Stride Length,Wide Based Gait Factors Limiting Gait Function Factors Limiting Gait Function Decreased Activity Tolerance, Decreased Strength,Pain Comments Gait Comments she continues to report fatigue with gait but no dizziness and no nausea Stair Climbing Assessment Evaluation Level of Assist On Stairs Minimal Assistance Devices Stair Climbing Assistive Devices Straight Cane Technique/Endurance Stair Climbing Direction Ascend and Descend Stair Climbing Technique Step to Step Number of Steps Climbed 1 Stair Climbing Set # Repetitions (reps) 1 Comments Stair Climbing Comments Spouse able to provide hand held assist (min assist) on right and cane on left PT-Balance Assessment Sitting Balance and Reactions Static Sitting Balance Ability Good Dynamic Sitting Balance Ability Good Standing Balance and Reactions Static Standing Balance Ability Good Dynamic Standing Balance Ability Good Device Used FWW M5 PT-IP Objective Assessments Start: 03/22/21 16:58 Freq: NEEDED Status: Active Protocol: Document 03/22/21 15:10 AB (Rec: 03/22/21 17:07 AB [id number]) Orientation Orientation/Cognition Level of Alertness Alert Orientation Name Language Function Ability No Deficits Noted Safety Awareness Understands Safety Issues Memory Description No Deficits Noted Gross Range of Motion Lower Extremity ROM Assessment Within Functional Limits Strength Lower Extremity Strength Assessment Right Impaired Hip 4-/5 Knee 4-/5 Sensation Assessment Sensation Gross Sensation WNL Muscle Tone Muscle Tone WNL Yes M6 PT-IP Treatment Start: 03/22/21 16:58 Freq: NEEDED Status: Active Protocol: Document 03/24/21 10:35 DLM (Rec: 03/24/21 10:48 DL [id number]) Physical Therapy Treatment Exercises Exercises Ankle Pumps,Gluteal Sets,Quad Sets,Heel Slides,Supine Hip Abduction Education Education Provided Precautions,Weight Bearing Status,Post-Op Packet,Safety Other Treatments Other Treatment Performed caregiver training continued this visit with her Spouse M7 PT-IP Assessment and Plan Start: 03/22/21 16:58 Freq: NEEDED Status: Active Protocol: Document 03/24/21 10:35 DLM (Rec: 03/24/21 10:48 DL [id number]) PT Summary Assessment and Plan Summary Impairments Pain,ROM,Strength,Balance,Bed Mobility,Transfers,Gait, Activity Tolerance Progress Towards Goals Progressing Toward Goals,Safe For Discharge Assessment Summary She continues to progress in therapy. She tolerated activity well without dizziness nor nausea. She continues to fatigue quickly with gait. She demonstrates good knowledge of her hip precautions and HEP. Her Spouse is prepared to assist her at home. She appears safe to discharge home today when medically cleared. Goals Bed Mobility Goal Independent Transfer Goal Standby Assistance,Front Wheeled Walker Gait Goal Standby Assistance,Front Wheel Walker Gait Distance 150 Other Goals up/down 2 steps SPC/HOME CARE COMPANION min A Days to Meet Goals 5 Frequency of Treatment Frequency Of Treatment Discharge Treatment Plan Physical Therapy Treatment Plan Bed Mobility Training,Transfer Training,Gait Training, Therapeutic Exercise,Balance Retraining,Post Op Education, Discharge Planning,Hot or Cold Pack,Neuromuscular Re-ed Precautions Posterior Hip Precautions No Hip Flexion > 90 degrees,No Hip Internal Rotation,No Hip Adduction Weight Bearing Status Weight Bearing Status Weight Bear as Tolerated Recommendations To Nursing Amount of Assist Needed 1 Person Assist Discharge Recommendations PT Discharge Recommendations Home with Assistance, Outpatient PT Transportation Needs at Discharge Private Vehicle
--- NOTE | 2021-03-24 11:42 | PC.NURSE ---
Discharge note: pt discharged home. Reviewed discharge instructions with patient and . Changed dressing to right hip previous drain site- no drainage noted. Reviewed post op hip instructions, opioid instructions, medications to continue. Reviewed signs and symptoms of infection and stroke. All belongings with patient.
== END 2021-03-24 11:45 | disposition home or self-care (01) | DRG 470 ==
LOC: OR 06:17 → AC 06:17
PROVIDERS: Admitting Provider Orthopaedic Surgery; PCP Family Medicine; Referring Provider Orthopaedic Surgery; Visit Provider Orthopaedic Surgery
PROC: 0SR90JZ Replacement of Right Hip Joint with Synthetic Substitute, Open Approach (ICD-10-PCS; CPT 27130; principal; 2021-03-22 07:45)
DX: M16.11 Unilateral primary osteoarthritis, right hip (principal); R42 Dizziness and giddiness; Z20.822 Contact with and (suspected) exposure to COVID-19
CPT/HCPCS: 72170; 73502; 85014; 85018; 87635; 94760; 94762; 97110; 97116; 97162; 97530; C1776; C9803; C9290; J0171; J0690; J1100; J2274; J2405; J2704

== ENCOUNTER → 2021-04-17 16:04 | Outpatient (CLI) | payer MEDICARE, BC, SELFPAY ==
[2021-03-22 11:33] VITALS: BMI 24.5
[2021-04-17 17:28] LABS: Add Manual Diff / Slide Review NO; Basophils Absolute Auto 100 /uL (0-100); Basophils Percent Auto 0.7 % (0-2); Eosinophils Absolute Auto 100 /uL (0-450); Eosinophils Percent Auto 1.4 % (2-4); Hemoglobin 11.6 g/dL (12.0-16.0); Lymphocytes Absolute Auto 700 /uL (1100-4500); Lymphocytes Percent Auto 7.3 % (25-40); Mean Corpuscular HGB Conc 33.3 % (30-36); Mean Corpuscular Hemoglobin 30.1 PG (26-34); Mean Corpuscular Volume 90.3 fL (80-100); Monocytes Absolute Auto 700 /uL (0-900); Monocytes Percent Auto 7.5 % (3-14); Neutrophils Absolute Auto 7900 /uL (1500-7000); Neutrophils Percent Auto 83.1 % (50-75); Platelet Count 514 X10^3/uL (150-400); Red Blood Cell Count 3.87 X10^6/uL (4.0-5.2); Red Cell Distribution Width 15.3 % (11.6-14.8); White Blood Cell Count 9.5 X10^3/uL (4.5-11.0)
[2021-04-17 18:42] LABS: HEMOLYSIS < 15 (0-50); Iron 52 ug/dL (37-170)
[2021-04-17 18:52] LABS: Percent Iron Saturation 17 % (15-50); Total Iron Binding Capacity 312 ug/dL (265-497); Transferrin 250 mg/dL (206-381)
[2021-04-17 19:18] LABS: Ferritin 18 ng/mL (11-264)
== END ==
PROVIDERS: PCP Family Medicine; Referring Provider Physician Assistant; Visit Provider Physician Assistant
DX: N18.6 End stage renal disease (principal); D63.1 Anemia in chronic kidney disease
CPT/HCPCS: 36415; 82728; 83540; 83550; 85025

== ENCOUNTER → 2021-05-06 14:58 | Outpatient (CLI) | payer MEDICARE, BC, SELFPAY ==
[2021-03-22 11:33] VITALS: BMI 24.5
--- NOTE | 2021-05-24 07:35 | PM.CARDMON.1 ---
[employer] Report Referral & Results Date Patient Seen: 05/06/21 Requesting provider: Mraie Elizabeth Indication: Dyspnea Duration of monitoring (days): 14 Diary information: There were 33 patient triggered events and 10 patient diary entries recorded Patient triggered events were associated with (within 45 seconds) sinus rhythm, PVCs, PACs and SVT Patient diary events were also associated with the same 4 rhythms Data: Minimum heart rate identified was 47 beats per minute at 09:20 on 05/20/2021 Maximum sinus heart rate was 140 beats per minute at 10:12 on 05/16/2021 Maximum overall heart rate was 250 beats per minute at 14:27 on 05/16/2021 during a 4 beat run of SVT Approximately 1.2% of identified beats were supraventricular ectopic in origin which would classify them as occasional Less than 1% of identified beats were ventricular ectopic in origin which would classify them as rare There was 1 4 beat run of monomorphic ventricular tachycardia Therefore 121 runs of SVT the fastest being the run noted above the longest lasting 1 minute 54 seconds Impression: 14 day director of cardiac rehabilitation demonstrating rare brief runs of SVT as a possible source of patient's patient events. Patient also had simple PVCs and PACs during times identified as symptomatic Also single run of ventricular tachycardia as above Clinical correlation suggested
== END ==
PROVIDERS: PCP Family Medicine; Referring Provider Physician Assistant; Visit Provider Physician Assistant
DX: R06.00 Dyspnea, unspecified (principal)
CPT/HCPCS: 93246; 93248

== ENCOUNTER → 2021-06-18 14:42 | Outpatient (CLI) | payer MEDICARE, BC, SELFPAY ==
[2021-03-22 11:33] VITALS: BMI 24.5
--- NOTE | 2021-06-18 15:08 | DI.ECHO.S_ITS ---
: TAMMY SANTILLAN Study Date: 06/18/2021 Height: 64 in : :Hospital ReadingLocation: Weight: 138 lb : : Gender: Female BSA: 1.7 m2 : :: 1945 Age: 76 yrs BP: 150/95 mmHg: :Reason For Study: DYSPNEA ON EXERTION : :Ordering Physician: IVAN, : :CLAUDIA Paulino Performed By: Ines Purcell : :Referring: CLAUDIA LOVE : + + Interpretation Summary The left ventricle is normal in size and wall thickness. The ejection fraction is estimated to be 60-65%. Diastolic parameters suggest probable normal left ventricular diastolic function and normal filling pressures. The right ventricle is normal in size and function. No significant valvular disease. Procedure: A two-dimensional transthoracic echocardiogram with color flow and Doppler was performed. The study quality was technically adequate. There is no prior echocardiogram noted for this patient. The patient was in sinus rhythm with heart rates between 75-85 bpm during the exam. Left Ventricle: The left ventricle is normal in size and wall thickness. The ejection fraction is estimated to be 60-65%. There are no focal wall motion abnormalities. Diastolic parameters suggest probable normal left ventricular diastolic function and normal filling pressures. Right Ventricle: The right ventricle is normal in size and function. Atria: The left atrial size is normal. Right atrial size is normal. There is no Doppler evidence for an interatrial shunt. Mitral Valve: The mitral valve is normal in structure and function. There is trace mitral regurgitation. Aortic Valve: The aortic valve is trileaflet. The aortic valve opens well. There is no aortic valve stenosis. There is trace aortic regurgitation. Tricuspid Valve: The tricuspid valve is normal in structure and function. There is trace tricuspid regurgitation. Pulmonic Valve: The pulmonic valve leaflets are thin and pliable; valve motion is normal. There is trace pulmonic regurgitation. Great Vessels: The aortic root is normal size. The dimensions of the ascending aorta are normal. The IVC is of normal diameter and collapses greater than 50% with a sniff. This suggests a low right atrial pressure of 3 mm Hg. Pericardium/ Pleura There is no pericardial effusion. There is no pleural effusion. MMode/2D Measurements & Calculations LVIDd: 3.6 cm LVOT diam: 2.0 cm LVIDs: 2.4 cm Ao root diam: 2.8 cm FS: 32.6 % asc Aorta Diam: 2.8 cm IVSd: 0.72 cm Ao Arch Diam (Prox Trans): 2.8 cm LVPWd: 0.71 cm LV lindsay. diameter/BSA (cm/m^2): 2.1 LV sys. diameter/BSA (cm/m^2): 1.4 LA A2 area: 15.1 cm2 RA long axis: 4.4 cm LA A4 area: 10.1 cm2 RA area: 12.1 cm2 LA length (vol): 4.2 cm RA vol: 28.3 ml LA vol: 30.4 ml RA : 16.9 ml/m2 LA vol index: 18.2 ml/m2 IVC diam: 0.98 cm RVD1 (basal): 2.8 cm TAPSE: 2.1 cm Doppler Measurements & Calculations Ao V2 max: 171.8 cm/sec LVOT Max Hiro: 144.8 cm/sec Ao V2 mean: 115.5 cm/sec LV V1 max P.4 mmHg Ao max P.8 mmHg LV V1 VTI: 30.6 cm Ao mean P.1 mmHg BENEDICTO(I,D): 2.9 cm2 Ao V2 VTI: 33.3 cm BENEDICTO(V,D): 2.6 cm2 sev ratio: 0.92 BENEDICTO indexed to BSA (cm^2/m^2): 1.7 MV E max hiro: 77.7 cm/sec PA V2 max: 98.9 cm/sec MV A max hiro: 94.3 cm/sec PA V2 mean: 65.9 cm/sec MV E/A: 0.82 PA mean P.0 mmHg Med Peak E' Hiro: 10.2 cm/sec PA pr(Accel): 12.2 mmHg E/E' med: 7.7 Lat Peak E' Hiro: 11.1 cm/sec E/E' lat: 7.0 E/e' average: 7.3 MV dec time: 0.23 sec SV(LVOT): 96.0 ml Reading Physician:RADHA
== END ==
PROVIDERS: PCP Family Medicine; Referring Provider Physician Assistant; Visit Provider Physician Assistant
DX: R06.00 Dyspnea, unspecified (principal); R00.2 Palpitations
CPT/HCPCS: 93306

== ENCOUNTER → 2021-07-11 12:20 | Outpatient (CLI) | payer MEDICARE, BC, SELFPAY ==
[2021-03-22 11:33] VITALS: BMI 24.5
[2021-07-11 13:41] LABS: Add Manual Diff / Slide Review NO; Basophils Absolute Auto 0 /uL (0-100); Basophils Percent Auto 0.4 % (0-2); Eosinophils Absolute Auto 100 /uL (0-450); Eosinophils Percent Auto 2.1 % (2-4); Hematocrit 37.4 % (36-46); Hemoglobin 12.1 g/dL (12.0-16.0); Lymphocytes Absolute Auto 700 /uL (1100-4500); Lymphocytes Percent Auto 11.8 % (25-40); Mean Corpuscular HGB Conc 32.3 % (30-36); Mean Corpuscular Hemoglobin 29.7 PG (26-34); Monocytes Absolute Auto 500 /uL (0-900); Monocytes Percent Auto 8.1 % (3-14); Neutrophils Absolute Auto 4500 /uL (1500-7000); Neutrophils Percent Auto 77.6 % (50-75); Platelet Count 261 X10^3/uL (150-400); Red Blood Cell Count 4.06 X10^6/uL (4.0-5.2); Red Cell Distribution Width 15.2 % (11.6-14.8); White Blood Cell Count 5.8 X10^3/uL (4.5-11.0)
[2021-07-11 14:25] LABS: Alanine Aminotransferase 15 IU/L (<35); Albumin 4.4 g/dL (3.5-5.0); Albumin Globulin Ratio 1.5 (1.0-2.8); Alkaline Phosphatase 68 U/L (38-126); Aspartate Aminotransferase 31 IU/L (14-36); Bilirubin Total 0.4 mg/dL (0.2-1.3); Blood Urea Nitrogen 26 mg/dL (7-17); Calcium 9.3 mg/dL (8.4-10.2); Carbon Dioxide 25 mmol/L (22-32); Chloride 108 mmol/L (98-107); Estimated Glomerular Filt Rate 37.3 mL/min (>60); Glucose 112 mg/dL (80-110); HEMOLYSIS < 15 (0-50); Potassium 4.7 mmol/L (3.4-5.1); Sodium 139 mmol/L (137-145); Total Protein 7.4 g/dL (6.3-8.2)
== END ==
PROVIDERS: PCP Family Medicine; Referring Provider Family Medicine; Visit Provider Family Medicine
DX: N18.2 Chronic kidney disease, stage 2 (mild) (principal); N18.30 Chronic kidney disease, stage 3 unspecified; D63.1 Anemia in chronic kidney disease
CPT/HCPCS: 36415; 80053; 85025

== ENCOUNTER → 2021-08-01 15:42 | Outpatient (CLI) | payer MEDICARE, BC, SELFPAY ==
[2021-03-22 11:33] VITALS: BMI 24.5
[2021-08-01 17:09] LABS: TSH w/ Reflex to FT4 0.06 uIU/mL (0.47-4.68)
[2021-08-01 18:29] LABS: Free T4, Direct Thyroxine 1.24 ng/dL (0.78-2.19)
[2021-08-06 13:12] LABS: Thyroid Stimulating Immunoglob < 0.10 IU/L (0.00-0.55)
== END ==
PROVIDERS: PCP Family Medicine; Referring Provider Family Medicine; Visit Provider Family Medicine
DX: R00.2 Palpitations (principal); R79.89 Other specified abnormal findings of blood chemistry; R89.9 Unspecified abnormal finding in specimens from other organs, systems and tissues
CPT/HCPCS: 36415; 84439; 84443; 84445

== ENCOUNTER → 2021-09-03 14:31 | Outpatient (CLI) | payer MEDICARE, BC, SELFPAY ==
[2021-03-22 11:33] VITALS: BMI 24.5
--- NOTE | 2021-09-03 14:33 | DI.US.S_ITS ---
PROCEDURE: US THYROID INDICATIONS: ABNORMAL THYROID LABS TECHNIQUE: Real-time scanning was performed of the thyroid gland, with image documentation. COMPARISON: None. FINDINGS: Right: Thyroid lobe measures 3.6 x 1.4 x 1.3 cm, and demonstrates a nodule inferiorly Left: Thyroid lobe measures 3.3 x 1.0 x 0.9 cm, and is homogenous in echotexture. . Nodule number: 1 Location: Right mid/inferior thyroid Size: 0.4 by 0.4 x 0.3 cm Composition: Solid Echogenicity: Hypoechoic Shape: wider than tall. Margins: Smooth Echogenic foci: 0 Total points: 4 ACR TI-RADS category: 4 Recommendations: No follow-up necessary based on size IMPRESSION: 1. Right thyroid nodule as described above. No follow-up necessary. Dictated by: Aubrey Morgan M.D. on 09/03/2021 at 16:46 Approved by: Aubrey Morgan M.D. on 09/03/2021 at 16:49
== END ==
PROVIDERS: PCP Family Medicine; Referring Provider Family Medicine; Visit Provider Family Medicine
DX: E05.90 Thyrotoxicosis, unspecified without thyrotoxic crisis or storm (principal); E04.1 Nontoxic single thyroid nodule
CPT/HCPCS: 76536

== ENCOUNTER → 2021-09-12 13:55 | Outpatient (CLI) | payer MEDICARE, BC, SELFPAY ==
[2021-03-22 11:33] VITALS: BMI 24.5
[2021-09-12 15:46] LABS: Free T3, Triiodothyronine Free 3.37 pg/mL (2.77-5.27); Free T4, Direct Thyroxine 1.33 ng/dL (0.78-2.19)
[2021-09-12 15:59] LABS: TSH w/ Reflex to FT4 0.34 uIU/mL (0.47-4.68)
== END ==
PROVIDERS: PCP Family Medicine; Referring Provider Family Medicine; Visit Provider Family Medicine
DX: E05.90 Thyrotoxicosis, unspecified without thyrotoxic crisis or storm (principal)
CPT/HCPCS: 36415; 84439; 84443; 84481

== ENCOUNTER → 2021-10-03 08:46 | Outpatient (CLI) | payer MEDICARE, BC, SELFPAY ==
[2021-03-22 11:33] VITALS: BMI 24.5
--- NOTE | 2021-10-03 08:48 | DI.NM.S_ITS ---
PROCEDURE: NM UPTAKE AND SCAN RADIOPHARMACEUTICAL: 0.4 mCi I-123 sodium iodide by mouth. INDICATIONS: radioactive thyroid uptake scan, r/o toxic thyroid nodule TECHNIQUE: I-123 sodium iodide was administered orally. Anterior neck images were obtained, and iodine uptake by the thyroid gland calculated using briar shop supervisor's software. COMPARISON: [facility], , US THYROID, 09/03/2021, 16:08. is present FINDINGS: Morphology: The thyroid gland has normal morphology and uniform activity. Diffusely increased uptake within the right lobe. Uptake: 6 hour thyroid uptake is 7 % ; normal ranges are from 6-18%. 24 hour thyroid uptake is 21% ; normal ranges are from 10-30%. IMPRESSION: 1. Normal thyroid uptake values. 2. Diffusely increased uptake within the right thyroid lobe without correlate on ultrasound. Dictated by: Aubrey Morgan M.D. on 10/04/2021 at 10:18 Approved by: Aubrey Morgan M.D. on 10/04/2021 at 10:23
== END ==
PROVIDERS: PCP Family Medicine; Referring Provider Family Medicine; Visit Provider Family Medicine
DX: E05.90 Thyrotoxicosis, unspecified without thyrotoxic crisis or storm (principal)
CPT/HCPCS: 78014; A9516

== ENCOUNTER → 2021-11-25 14:48 | Outpatient (CLI) | payer MEDICARE, BC, SELFPAY ==
[2021-03-22 11:33] VITALS: BMI 24.5
[2021-11-25 16:16] LABS: TSH w/ Reflex to FT4 0.27 uIU/mL (0.47-4.68)
[2021-11-25 17:04] LABS: Free T4, Direct Thyroxine 1.29 ng/dL (0.78-2.19)
== END ==
PROVIDERS: PCP Family Medicine; Referring Provider Family Medicine; Visit Provider Family Medicine
DX: E05.90 Thyrotoxicosis, unspecified without thyrotoxic crisis or storm (principal)
CPT/HCPCS: 36415; 84439; 84443

== ENCOUNTER → 2022-01-07 16:17 | Outpatient (CLI) | payer MEDICARE, BC, SELFPAY ==
[2021-03-22 11:33] VITALS: BMI 24.5
--- NOTE | 2022-01-07 16:19 | DI.MG.S_ITS ---
BILATERAL DIGITAL SCREENING MAMMOGRAM 3D/2D WITH CAD: 01/07/2022 CLINICAL: Routine screening. Comparison is made to exams dated: 12/09/2019 mammogram, 11/11/2018 mammogram, and 10/16/2017 mammogram - [facility]. There are scattered areas of fibroglandular density in both breasts (category b / 25%-50% glandular tissue). Current study was also evaluated with a Computer Aided Detection (CAD) system. No significant masses, calcifications, or other findings are seen in either breast. There has been no significant interval change. IMPRESSION: NEGATIVE There is no mammographic evidence of malignancy. A 1 year screening mammogram is recommended. Based on the Tyrer Cuzick model (a risk assessment model) the patient's lifetime risk is 2.8% and her 10 year risk is 0.0%. According to the ACR, ACS, and NCCN guidelines, an annual breast MRI exam along with mammogram is recommended if the patient's lifetime risk is 20% or greater. This exam was interpreted at Station ID: [id number]. NOTE: For mammograms, a report in lay terms will be sent to the patient. Approximately 15% of breast malignancies will not be visualized mammographically. In the management of a palpable breast mass, a negative mammogram must not discourage biopsy of a clinically suspicious lesion. Electronically Signed By: Roberth plummer/rosa:01/07/2022 16:47:59 letter sent: Normal Exam ACR BI-RADS Category 1: Negative [id number]
== END ==
PROVIDERS: PCP Family Medicine; Referring Provider Family Medicine; Visit Provider Family Medicine
DX: Z12.31 Encounter for screening mammogram for malignant neoplasm of breast (principal)
CPT/HCPCS: 77063; 77067

== ENCOUNTER → 2022-02-21 12:44 | Outpatient (CLI) | payer MEDICARE, BC, SELFPAY ==
[2021-03-22 11:33] VITALS: BMI 24.5
--- NOTE | 2022-02-21 | DI.US.S_ITS ---
PROCEDURE: US RENAL COMPLETE INDICATIONS: Acquired absence of other parts of urinary tract TECHNIQUE: Real-time scanning was performed of the kidneys and bladder, with image documentation. COMPARISON: [facility], CT, CT ABDOMEN PELVIS W CON, 02/17/2020, 13:07. [facility], US, US RENAL COMPLETE, 09/07/2019, 14:39. [facility], , US RENAL COMPLETE, 08/26/2018, 14:21. FINDINGS: Kidneys: Kidneys are normal in size. Right kidney measures 8.2 cm long; left kidney measures 7.9 cm long. Right renal cortical thickness is 0.9 cm; left renal cortical thickness is 1.2 cm. Renal cortical echotexture is normal. No hydronephrosis or nephrolithiasis. No suspicious solid mass lesions. Bladder: Surgically absent. There is a fluid-filled structure in the right lower abdomen/pelvis, presumably the new bladder. Miscellaneous: No free pelvic fluid. IMPRESSION: 1. Kidneys are decreased in size and demonstrate cortical thinning. No hydronephrosis. 2. Cystectomy. 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 Dictated by: Shayna Masterson M.D. on 02/21/2022 at 17:19 Approved by: Shayna Masterson M.D. on 02/21/2022 at 18:34
== END ==
PROVIDERS: PCP Family Medicine; Referring Provider Urology; Visit Provider Urology
DX: Z90.6 Acquired absence of other parts of urinary tract (principal); Z98.890 Other specified postprocedural states; Z78.9 Other specified health status
CPT/HCPCS: 76770

== ENCOUNTER → 2022-03-04 13:56 | Outpatient (CLI) | payer MEDICARE, BC, SELFPAY ==
[2021-03-22 11:33] VITALS: BMI 24.5
[2022-03-04 16:38] LABS: TSH w/ Reflex to FT4 < 0.02 uIU/mL (0.47-4.68)
[2022-03-04 17:09] LABS: Free T4, Direct Thyroxine 1.33 ng/dL (0.78-2.19)
== END ==
PROVIDERS: PCP Family Medicine; Referring Provider Family Medicine; Visit Provider Family Medicine
DX: E05.90 Thyrotoxicosis, unspecified without thyrotoxic crisis or storm (principal)
CPT/HCPCS: 36415; 84439; 84443

== ENCOUNTER → 2022-04-30 14:32 | Outpatient (CLI) | payer MEDICARE, BC, SELFPAY ==
[2021-03-22 11:33] VITALS: BMI 24.5
[2022-04-30 16:04] LABS: TSH w/ Reflex to FT4 5.89 uIU/mL (0.47-4.68)
== END ==
PROVIDERS: PCP Family Medicine; Referring Provider Family Medicine; Visit Provider Family Medicine
DX: E05.90 Thyrotoxicosis, unspecified without thyrotoxic crisis or storm (principal)
CPT/HCPCS: 36415; 84439; 84443

== ENCOUNTER → 2022-06-02 16:23 | Outpatient (CLI) | payer MEDICARE, BC, SELFPAY ==
[2021-03-22 11:33] VITALS: BMI 24.5
[2022-06-02 18:00] LABS: Bilirubin Urine UA NEGATIVE (NEGATIVE); Color Urine UA RED; Glucose Urine UA NEGATIVE (Negative); Ketones Urine UA NEGATIVE (NEGATIVE); Leukocyte Esterase Urine UA 3+ (NEGATIVE); Nitrite Urine UA NEGATIVE (Negative); Occult Blood Urine UA 3+ (Negative); Protein Urine UA 2+ (Negative); Specific Gravity Urine UA >=1.030 (1.000-1.035); Urobilinogen Urine UA 0.2 E.U./dL (0.2)
[2022-06-02 18:04] LABS: Appearance Urine UA CLOUDY
[2022-06-02 18:05] LABS: Bacteria Urine Moderate (10-30); RBC Urine 5-10/HPF (0-5/HPF); WBC Urine >100/HPF (0-5/HPF)
[2022-06-02 18:06] LABS: Culture Indicated Urine Specimen Cultured
== END ==
PROVIDERS: PCP Family Medicine; Referring Provider Urology; Visit Provider Urology
DX: Z98.890 Other specified postprocedural states (principal)
CPT/HCPCS: 81001; 87077; 87086; 87186

== ENCOUNTER → 2022-07-01 13:34 | Outpatient (CLI) | payer MEDICARE, BC, SELFPAY ==
[2021-03-22 11:33] VITALS: BMI 24.5
[2022-07-01 14:45] LABS: Appearance Urine UA CLOUDY; Bilirubin Urine UA NEGATIVE (NEGATIVE); Color Urine UA YELLOW; Glucose Urine UA NEGATIVE (Negative); Ketones Urine UA NEGATIVE (NEGATIVE); Leukocyte Esterase Urine UA 3+ (NEGATIVE); Nitrite Urine UA NEGATIVE (Negative); Occult Blood Urine UA 3+ (Negative); Protein Urine UA 1+ (Negative); Urobilinogen Urine UA 0.2 E.U./dL (0.2)
[2022-07-01 14:55] LABS: Bacteria Urine None Seen; Culture Indicated Urine Specimen Cultured; RBC Urine 10-30/HPF (0-5/HPF); Squamous Epithelial Cell Urine 0-1 /HPF (0-5/HPF); WBC Urine 30-100/HPF (0-5/HPF)
== END ==
PROVIDERS: PCP Family Medicine; Referring Provider Urology; Visit Provider Urology
DX: R39.9 Unspecified symptoms and signs involving the genitourinary system (principal)
CPT/HCPCS: 81001; 87086

== ENCOUNTER → 2022-07-28 14:33 | Outpatient (CLI) | payer MEDICARE, BC, SELFPAY ==
[2021-03-22 11:33] VITALS: BMI 24.5
[2022-07-28 15:52] LABS: Thyroid Stimulating Hormone 0.687 uIU/mL (0.47-4.68)
== END ==
PROVIDERS: PCP Family Medicine; Referring Provider Family Medicine; Visit Provider Family Medicine
DX: E05.90 Thyrotoxicosis, unspecified without thyrotoxic crisis or storm (principal)
CPT/HCPCS: 36415; 84443

== ENCOUNTER → 2022-10-14 15:04 | Outpatient (CLI) | payer MEDICARE, BC, SELFPAY ==
[2021-03-22 11:33] VITALS: BMI 24.5
[2022-10-14 16:57] LABS: TSH w/ Reflex to FT4 0.09 uIU/mL (0.47-4.68)
[2022-10-14 17:26] LABS: Free T4, Direct Thyroxine 1.36 ng/dL (0.78-2.19)
== END ==
PROVIDERS: PCP Family Medicine; Referring Provider Family Medicine; Visit Provider Family Medicine
DX: E05.90 Thyrotoxicosis, unspecified without thyrotoxic crisis or storm (principal)
CPT/HCPCS: 36415; 84439; 84443

== ENCOUNTER → 2022-12-02 14:23 | Outpatient (CLI) | payer MEDICARE, BC, SELFPAY ==
[2021-03-22 11:33] VITALS: BMI 24.5
[2022-12-02 18:15] LABS: TSH w/ Reflex to FT4 2.94 uIU/mL (0.47-4.68)
== END ==
PROVIDERS: PCP Family Medicine; Referring Provider Family Medicine; Visit Provider Family Medicine
DX: E05.90 Thyrotoxicosis, unspecified without thyrotoxic crisis or storm (principal)
CPT/HCPCS: 36415; 84443

== ENCOUNTER → 2023-04-16 14:46 | Outpatient (CLI) | payer MEDICARE, BC, SELFPAY ==
[2021-03-22 11:33] VITALS: BMI 24.5
--- NOTE | 2023-04-16 | DI.US.S_ITS ---
PROCEDURE: US RENAL COMPLETE INDICATIONS: ILEAL POUCHITIS TECHNIQUE: Real-time scanning was performed of the kidneys and bladder, with image documentation. COMPARISON: [facility], CR, XR PELVIS WITH LATERAL HIP RIGHT, 04/16/2022, 15:37. [facility], , US RENAL COMPLETE, 02/21/2022, 12:59. [facility], CT, CT ABDOMEN PELVIS W CON, 02/17/2020, 13:07. [facility], , US RENAL COMPLETE, 09/07/2019, 14:39. FINDINGS: Kidneys: Kidneys are normal in size. Right kidney measures 7.9 cm long; left kidney measures 8.9 cm long. Right renal cortical thickness is 0.6 cm; left renal cortical thickness is 0.9 cm. Cortical thinning, most pronounced in the superior pole of the right kidney. No hydronephrosis or nephrolithiasis. No suspicious solid mass lesions. Bladder: Cystectomy. There is a new bladder. Miscellaneous: No free pelvic fluid. IMPRESSION: 1. Kidneys are decreased in size. There is renal cortical thinning, most pronounced in the superior pole of the right kidney. No stones or hydronephrosis. 2. Cystectomy. There is a new bladder. For better evaluation of neobladder, consider CT Dictated by: Shayna Masterson M.D. on 04/16/2023 at 16:36 Approved by: Shayna Masterson M.D. on 04/16/2023 at 16:42
== END ==
PROVIDERS: PCP Family Medicine; Referring Provider Urology; Visit Provider Urology
DX: K91.850 Pouchitis (principal); Z90.6 Acquired absence of other parts of urinary tract
CPT/HCPCS: 76770

== ENCOUNTER → 2023-05-11 14:14 | Outpatient (CLI) | payer MEDICARE, BC, SELFPAY ==
[2021-03-22 11:33] VITALS: BMI 24.5
== END ==
LOC: LAB 14:15
PROVIDERS: PCP Family Medicine; Referring Provider Family Medicine; Visit Provider Family Medicine
DX: E05.90 Thyrotoxicosis, unspecified without thyrotoxic crisis or storm (principal)
CPT/HCPCS: 36415; 84443

== ENCOUNTER → 2023-06-19 15:01 | Outpatient (CLI) | payer MEDICARE, BC, SELFPAY ==
[2021-03-22 11:33] VITALS: BMI 24.5
--- NOTE | 2023-06-19 | DI.RAD.S_ITS ---
PROCEDURE: XR LUMBAR SPINE 2-3V INDICATIONS: low back and right hip pain TECHNIQUE: 3 views of the lumbar spine were acquired. COMPARISON: [facility], , L-SPINE 2-3 VIEWS, 03/15/2013, 14:26. FINDINGS: Bones: 5 [id number] vertebrae are present. 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 from the superior endplate of L1 to the inferior endplate of L5, similar to prior. Mild multilevel degenerative changes with osteophytosis, disc height loss and facet arthropathy. Mild retrolisthesis of L1 on L2, L2 on L3 and L4-3 on L4 of approximately 2-3 mm, stable. No suspicious bony lesions. Hemiabdomen. Interval bilateral total hip arthroplasties which are partially visualized and appear intact. Soft tissues: Overlying bowel gas pattern is normal. No suspicious soft tissue calcifications. Scattered surgical clips. Bowel suture lines in the right. IMPRESSION: 1. No acute bony abnormality. 2. Similar appearance of dextroconvex curvature of the lumbar spine centered at L2-L3 with Cortez angle of 20?. 3. Mild multilevel degenerative changes. Dictated by: Britt Zapien M.D. on 06/19/2023 at 17:08 Approved by: Britt Zapien M.D. on 06/19/2023 at 17:14
== END ==
LOC: RAD 15:03
PROVIDERS: PCP Family Medicine; Referring Provider Chiropractor; Visit Provider Chiropractor
DX: M47.816 Spondylosis without myelopathy or radiculopathy, lumbar region (principal); M54.50 Low back pain, unspecified; M25.551 Pain in right hip; M41.9 Scoliosis, unspecified
CPT/HCPCS: 72100

== ENCOUNTER 2023-11-06 02:42 | Emergency (ER) | payer MEDICARE, BC, SELFPAY ==
[2021-03-22 11:33] VITALS: BMI 24.5
[2023-11-06] VITALS (13 sets, daily range): BP systolic 141–165; BP diastolic 59–72; PULSE 53–61; RESP 12–18; TEMP 37.1; O2SAT 94–100; BMI 25.7
--- NOTE | 2023-11-06 02:48 | DI.RAD.S_ITS ---
PROCEDURE: XR HIP W PEL IF DONE RT 2V INDICATIONS: dislocation TECHNIQUE: 3 views of the hip were acquired. COMPARISON: None. FINDINGS: Bones: Dislocated right total hip arthroplasty, with superior subluxation of the femoral component. Soft tissues: No suspicious soft tissue calcifications or masses. Surgical changes within the abdomen. IMPRESSION: Dislocated right total hip arthroplasty. Agree with preliminary report. Dictated by: Nahun Randle M.D. on 11/06/2023 at 8:06 Approved by: Nahun Randle M.D. on 11/06/2023 at 8:07
--- NOTE | 2023-11-06 04:11 | ED_ITS ---
HPI - Extremity Injury (Lower) General Chief Complaint: Extremity Injury, Lower Stated Complaint: DISLOCATED HIP Time Seen by Provider: 11/06/23 02:48 Source: patient and EMS Mode of arrival: EMS History of Present Illness HPI Narrative: Patient 78-year-old female history of bilateral hold hip arthroplasty and cystostomy presenting today with right hip pain. She reports that the right hip was replaced in [place] [address] Neeta Reynolds. He says 3 weeks ago in [place] she was getting into a big SUV and it was dislocated. It required orthopedic surgery to put it back in in the OR. She stayed 3 days in the hospital. And she just got back last night. Tonight she was standing in the kitchen sink and she twisted in turn and her hip came back out. He says it does not hurt as bad this time as it did last time. She says she did not been down. No other injury Related Data Home Medications Medication Instructions Recorded Confirmed ascorbic acid (vitamin C) 500 mg 500 mg PO QDAY ##0 02/24/12 10/05/23 tablet d-mannose 500 mg capsule 500 mg PO DAILY 03/19/21 10/05/23 apple cider vinegar 500 mg tablet mg PO 07/22/22 10/05/23 biotin 5,000 mcg sublingual tablet 5,000 mcg sublingual DAILY 07/22/22 10/05/23 calcium citrate 250 mg 2 tab PO ONCE 07/22/22 10/05/23 calcium-vitamin D3 5 mcg (200 unit) tablet cholecalciferol (vitamin D3) 50 2,000 unit PO QDAY #0 caps 07/22/22 10/05/23 mcg (2,000 unit) capsule (Vitamin D3) coQ10 (ubiquinol) 100 mg capsule 100 mg PO ONCE 07/22/22 10/05/23 (CoQmax Ubiquinol) lutein 20 mg-zeaxanthin 1,000 mcg cap PO 07/22/22 10/05/23 capsule mecobalamin (vitamin B12) 2,500 mcg PO 07/22/22 10/05/23 mcg chewable tablet multivitamin (Multiple Vitamins 1 tab PO DAILY 07/22/22 10/05/23 tablet) nitrofurantoin macrocrystal 50 mg 50 mg PO BEDTIME 08/11/22 10/05/23 capsule conjugated estrogens 0.3 mg tablet 0.3 mg PO DAILY 08/13/23 10/05/23 (Premarin) Previous Rx's Medication Instructions Recorded See 08/12/22 scan for #1 ea 08/11/22 Vitamin/Suplement list methimazole 5 mg tablet 2.5 mg (1/2 x 5 mg) PO DAILY #60 12/16/22 tabs propranolol 60 mg capsule,24 60 mg PO DAILY #90 caps 01/22/23 hr,extended release triamcinolone acetonide 0.1 % See Rx Instructions topical BID 08/13/23 topical cream #80 grams diltiazem HCl 120 mg 120 mg PO DAILY #30 caps 10/08/23 capsule,extended release 24 hr (Cardizem CD) Allergies Allergy/AdvReac Type Severity Reaction Status Date / Time levofloxacin [From Levaquin] Allergy Severe Tendonitis Verified 10/05/23 11:20 ofloxacin Allergy Severe TENDONITIS Verified 10/05/23 11:20 Sulfa (Sulfonamide Allergy Mild hives Verified 10/05/23 11:20 Antibiotics) Patient History Medical History (Updated 11/06/23 @ 04:54 by Lala Neal DO) Palpitations Osteoarthritis Intermittent small bowel obstruction due to adhesions Surgical History (Updated 07/17/22 @ 07:55 by Chante Nails LPN) History of construction of external stoma of urinary system (~1988) Hx of bladder repair surgery History of bilateral tubal ligation Hx of breast biopsy Hx of appendectomy History of hysterectomy Hx of resection of small bowel History of total left hip replacement Status post hysterectomy Family History Father Hypertension Stroke Sister Age: 67 Pacemaker Heart disease Social History marital status: household members: spouse Smoking Status: Never smoker alcohol intake: current substance use type: does not use Smoking Status: Never smoker alcohol intake frequency: holidays/special occasions only Substance Use Type: does not use Exam Initial Vital Signs Initial Vital Signs: Vital Signs Temperature 98.8 F 11/06/23 02:41 Pulse Rate 60 11/06/23 02:41 Respiratory Rate 18 11/06/23 02:41 Blood Pressure 141/72 H 11/06/23 02:41 Pulse Oximetry 99 11/06/23 02:41 Oxygen Delivery Method Room Air 11/06/23 02:41 GENERAL: [Well-appearing, well-nourished] and in [no acute] distress. HEENT: Head atraumatic,EOMI, pupils reactive, face symmetric, [moist] mucous membranes CARDIOVASCULAR: Regular rate and rhythm without murmurs, rubs or gallops. RESPIRATORY: Breath sounds equal bilaterally, no wheezes rales or rhonchi. ABDOMEN: Soft, nontender. Normoactive bowel sounds all 4 quadrants. No guarding or rebound. EXTREMITIES: Normal range of motion, no clubbing or edema. Neurovascularly intact Right leg slightly shortened NEUROLOGICAL: Alert and oriented x4.Normal gait and speech. SKIN: Warm, dry, no laceration, no petechiae, no rashes or lesions. Procedures Orthopedic Joint Reduction Joint #1: Side: right Joint Reduction Location: hip Analgesia: procedural sedation Technique used: traction/counter-traction and direct manipulation Post-reduction neuro exam: intact and no change Post-reduction vascular: intact and no change Post Reduction X-Ray Obtained: Yes Post Reduction X-Ray Results: reduced Splint Applied: Yes Orthopedic Splinting/Casting Injury #1: Lower Extremity Injury Location: upper leg Lower Extremity Immobilizer: knee immobilizer Post splinting neuro exam: intact Post splinting vascular exam: intact Placed by: Nursing Procedural Sedation Consent signed: Yes Time out performed: Yes Indication: fracture/dislocation reduction ASA Class: II Mallampati Airway Classification: Class II IV Propofol dose (mg): 70.0 Intraservice time/total sedation time (min): 16 ED Sedation Level: Moderate (Concious) Patient Tolerated Procedure: Well Complications: hypoventilation Interventions: Airway repositioned and Assist by BVM Course Orders Ordered: ED Orders 11/06/23 02:48 XR hip w pel if done RT 2V Stat 11/06/23 04:38 XR pelvis 1-2V Stat Discontinued Medications Sodium Chloride (Normal Saline 0.9%) 1,000 mls @ 1,000 mls/hr IV BOLUS ONE Stop: 11/06/23 04:20 Last Admin: 11/06/23 04:29 Dose: 1,000 mls/hr Documented By: MINDY Propofol (Propofol 200 Mg/20 Ml Vial) 70 mg 1 mg/kg (70 mg) IV NOW ONE Stop: 11/06/23 03:22 Last Admin: 11/06/23 04:29 Dose: 70 mg Documented By: MINDY Vital Signs Vital signs: Vital Signs - 8 hr 11/06/23 02:41 11/06/23 02:43 11/06/23 02:44 Temperature 98.8 F Pulse Rate 60 61 Respiratory Rate 18 Blood Pressure 141/72 H 141/72 H Pulse Oximetry 99 98 Oxygen Delivery Method Room Air 11/06/23 02:44 11/06/23 03:00 11/06/23 03:00 Temperature Pulse Rate 61 57 L Respiratory Rate Blood Pressure 144/68 H Pulse Oximetry 98 98 Oxygen Delivery Method 11/06/23 03:30 11/06/23 03:30 11/06/23 04:00 Temperature Pulse Rate 53 L Respiratory Rate Blood Pressure 153/70 H 154/68 H Pulse Oximetry 98 Oxygen Delivery Method 11/06/23 04:00 11/06/23 04:29 11/06/23 04:29 Temperature Pulse Rate 54 L 59 L Respiratory Rate Blood Pressure 155/72 H Pulse Oximetry 99 98 Oxygen Delivery Method 11/06/23 04:30 11/06/23 04:30 11/06/23 04:30 Temperature Pulse Rate 60 59 L Respiratory Rate 18 Blood Pressure 156/68 H 156/68 H Pulse Oximetry 99 99 Oxygen Delivery Method 11/06/23 04:36 11/06/23 04:36 Temperature Pulse Rate 59 L Respiratory Rate Blood Pressure 155/59 H Pulse Oximetry 100 Oxygen Delivery Method MDM - Extremity Injury (Lower) Lab Data Labs: Point of Care Testing Test Results Negative MDM Narrative Medical decision making narrative: Patient is 78-year-old female bilateral total hip arthroplasty presenting today with right hip dislocation. This is the 2nd dislocation that has happened in 3 weeks. The 1st 1 required OR to get it back in. She tolerated procedure sedation very well she did require some BVM assistance but not much. The hip was reduced pretty easily. She is placed in a knee immobilizer. She knows she has not supposed to do but it she did today was turn and get something off the counter while standing Discharge Plan Departure Patient Disposition: Home Clinical Impression: Hip dislocation, right Instructions: DI for Hip Dislocation -- Adult Activity Restrictions/Additional Instructions: *You have been diagnosed with right hip dislocated *What to do: Keep your knees over your toes at all times. Your hip may require revision Do not bend and twist. Keep knee immobilizer * Bathroom ? An over-toilet aide can elevate the seat height for the toilet to keep your hip from bending too far when sitting down. * Furniture ? Avoid having things in the bottom drawer of cupboards, this will prevent you from bending down too far. * A grabber is a handy tool to use for picking things up off the floor. * Sitting ? Be sure that your hip is always situated above your knees. * Use an elevated seat or fold up a rug to elevate the seat height. * A platform under your chair or couch can help to raise the height. An occupational therapist can assess what equipment may be required. * Car seats are often low, so be sure to check this prior to a car ride. * When sitting don?t lean forward as your hip will bend more than 80 degrees with very little movement. * Sleeping ? When sleeping on your back, place a pillow between your legs to prevent them from crossing over or rolling inwards. * Don?t turn your toes inwards. * Don?t cross your legs. * Don?t bend your operated leg more than 80 degrees. *Continue to take medications as directed Tylenol Motrin as needed for pain *Follow up with your primary care provider in 2-3 days or call [phone] Do recommend that you follow-up with orthopedic call [facility] office to schedule follow up appointment *Return to ER if you should have hip dislocation, weakness or any new, worsening or concerning symptoms Prescriptions: No Action nitrofurantoin macrocrystal 50 mg capsule 50 mg PO BEDTIME Rx Instructions: must administer with a meal/food (DME) See 08/12/22 scan for Vitamin/Suplement list See Rx Instructions .Route .MEDSUPPLY Qty: 1 0RF Rx Instructions: daily ascorbic acid (vitamin C) 500 MG tablet 500 mg PO QDAY Qty: 0 cholecalciferol (vitamin D3) [Vitamin D3] 50 mcg (2,000 unit) capsule 2,000 unit PO QDAY Qty: 0 multivitamin [Multiple Vitamins] Tablet 1 tab PO DAILY calcium citrate-vitamin D3 250 mg-5 mcg (200 unit) tablet 2 tab PO ONCE apple cider vinegar 500 mg tablet PO mecobalamin (vitamin B12) 2,500 mcg tablet,chewable PO biotin 5,000 mcg tablet, sublingual 5,000 mcg sublingual DAILY lutein-zeaxanthin 20 mg- 1,000 mcg capsule PO coQ10 (ubiquinol) [CoQmax Ubiquinol] 100 mg capsule 100 mg PO ONCE Patient Comments: liquid form methimazole 5 mg tablet 2.5 mg PO DAILY Qty: 60 1RF propranolol 60 mg capsule,extended release 24hr 60 mg PO DAILY Qty: 90 3RF diltiazem HCl [Cardizem CD] 120 mg capsule,extended release 24hr 120 mg PO DAILY Qty: 30 1RF Rx Instructions: Take one capsule once daily. Premarin 0.3 mg tablet 0.3 mg PO DAILY triamcinolone acetonide 0.1 % cream See Rx Instructions topical BID Qty: 80 1RF Rx Instructions: 1 mg topically bid TOP BID; d-mannose 500 mg Capsule 500 mg PO DAILY Referrals: Jose Juan Barraza MD [Primary Care Provider] - Jose Aggarwal MD [Physician] - Stand Alone Forms: Patient Portal/API
[2023-11-06] MEDS: propofoL 200 MG/20 ML VIAL 70 MG IV (04:29)
[2023-11-06] MEDS: SODIUM CHLORIDE 0.9% 1,000 ML 1000 ML IV (04:29)
--- NOTE | 2023-11-06 04:38 | DI.RAD.S_ITS ---
PROCEDURE: XR PELVIS 1-2V INDICATIONS: hip dislocation TECHNIQUE: 1 view(s) of the pelvis acquired. COMPARISON: None. FINDINGS: Bones: Interval reduction of the right total hip arthroplasty, which appears normally aligned. Soft tissues: Visualized bowel gas pattern is normal. No suspicious soft tissue calcifications. IMPRESSION: Interval right hip reduction, with adequate alignment. Dictated by: Nahun Randle M.D. on 11/06/2023 at 8:10 Approved by: Nahun Randle M.D. on 11/06/2023 at 8:11
[2023-11-06] MEDS: HYDROCODONE/ACET 5/325 PREPACK 1 BOTTLE MISC (05:14)
== END 2023-11-06 05:37 | disposition home or self-care (01) ==
PROVIDERS: Emergency Provider Emergency Medicine; PCP Family Medicine
DX: T84.020A Dislocation of internal right hip prosthesis, initial encounter (principal)
CPT/HCPCS: 27265; 72170; 73502; 99152; 99283; 99284; J2704

== ENCOUNTER → 2023-11-18 14:42 | Outpatient (CLI) | payer MEDICARE, BC, SELFPAY ==
[2021-03-22 11:33] VITALS: BMI 24.5
--- NOTE | 2023-11-18 14:43 | DI.RAD.S_ITS ---
PROCEDURE: XR CHEST 2V INDICATIONS: worsening cough TECHNIQUE: 2 views of the chest were acquired. COMPARISON: None. FINDINGS: Surgical changes and devices: Surgical clips are seen in the right upper quadrant. Lungs and pleura: Lungs are clear. No pleural effusions or pneumothorax. Mediastinum: Mediastinal contours are normal. Heart size is normal. Bones and chest wall: No suspicious bony abnormalities. Soft tissues appear unremarkable. IMPRESSION: No acute cardiopulmonary abnormality is seen. Approved by: Teja Mejia M.D. on 11/18/2023 at 16:24
== END ==
PROVIDERS: PCP Family Medicine; Referring Provider Physician Assistant; Visit Provider Physician Assistant
DX: J20.9 Acute bronchitis, unspecified (principal); R06.02 Shortness of breath
CPT/HCPCS: 71046

== ENCOUNTER 2023-11-22 08:47 | Inpatient (IN) | payer MEDICARE, BC, SELFPAY ==
[2021-03-22 11:33] VITALS: BMI 24.5
[2023-11-22] VITALS (19 sets, daily range): BP systolic 146–182; BP diastolic 49–129; PULSE 55–89; RESP 11–24; TEMP 35.8–36.4; O2SAT 92–100; BMI 25.7
--- NOTE | 2023-11-22 10:13 | ED_ITS ---
HPI - Extremity Problem General Chief complaint: Extremity Problem,Nontraumatic Stated complaint: HIP AND BACK PAIN Time Seen by Provider: 11/22/23 10:13 Source: patient Mode of arrival: Ambulatory History of Present Illness HPI Narrative: Patient is a 78-year-old female history of recent hip dislocation presenting today with abdominal pain and back pain. I actually saw and evaluated here on November 05 with right hip dislocation. It was reduced. She reports that since then she has had issues in her right flank in her abdomen. She took 2 [place] post total he said the 1st 1 helped for about 4 hours she took another 1 and it did not really seem to help. She has no nausea or vomiting. Not having pain in her if she is able to ambulate. No fevers chills or other symptoms. No prior history of kidney stones. Related Data Home Medications Medication Instructions Recorded Confirmed ascorbic acid (vitamin C) 500 mg 500 mg PO QDAY ##0 02/24/12 11/22/23 tablet d-mannose 500 mg capsule 500 mg PO DAILY 03/19/21 11/22/23 apple cider vinegar 500 mg tablet 500 mg PO QAM 07/22/22 11/22/23 biotin 5,000 mcg sublingual tablet 5,000 mcg sublingual DAILY 07/22/22 11/22/23 calcium citrate 250 mg 2 tab PO ONCE 07/22/22 11/22/23 calcium-vitamin D3 5 mcg (200 unit) tablet cholecalciferol (vitamin D3) 50 2,000 unit PO QDAY #0 caps 07/22/22 11/22/23 mcg (2,000 unit) capsule (Vitamin D3) coQ10 (ubiquinol) 100 mg capsule 100 mg PO ONCE 07/22/22 11/22/23 (CoQmax Ubiquinol) lutein 20 mg-zeaxanthin 1,000 mcg 1 cap PO QAM 07/22/22 11/22/23 capsule mecobalamin (vitamin B12) 2,500 2,500 mcg PO QAM 07/22/22 11/22/23 mcg chewable tablet multivitamin (Multiple Vitamins 1 tab PO DAILY 07/22/22 11/22/23 tablet) nitrofurantoin macrocrystal 50 mg 50 mg PO BEDTIME 08/11/22 11/22/23 capsule conjugated estrogens 0.3 mg tablet 0.3 mg PO DAILY 08/13/23 11/22/23 (Premarin) Previous Rx's Medication Instructions Recorded propranolol 60 mg capsule,24 60 mg PO DAILY #90 caps 01/22/23 hr,extended release Disabled Parking Permit See Rx Instructions .Route 11/11/23 .COMPLEX #1 ea inhalational spacing device #1 ea 11/11/23 (BreatheRite MDI Spacer) Allergies Allergy/AdvReac Type Severity Reaction Status Date / Time levofloxacin [From Levaquin] Allergy Severe Tendonitis Verified 11/11/23 15:40 ofloxacin Allergy Severe TENDONITIS Verified 11/11/23 15:40 Sulfa (Sulfonamide Allergy Mild hives Verified 11/11/23 15:40 Antibiotics) Patient History Medical History (Updated 11/22/23 @ 15:39 by Lala Neal DO) Palpitations Osteoarthritis Intermittent small bowel obstruction due to adhesions Surgical History (Updated 07/17/22 @ 07:55 by Chante Nails LPN) History of construction of external stoma of urinary system (~1988) Hx of bladder repair surgery History of bilateral tubal ligation Hx of breast biopsy Hx of appendectomy History of hysterectomy Hx of resection of small bowel History of total left hip replacement Status post hysterectomy Family History Father Hypertension Stroke Sister Age: 67 Pacemaker Heart disease Social History marital status: household members: spouse Smoking Status: Never smoker alcohol intake: current substance use type: does not use Smoking Status: Never smoker alcohol intake frequency: holidays/special occasions only Substance Use Type: does not use Exam Initial Vital Signs Initial Vital Signs: Vital Signs Pulse Oximetry 94 11/22/23 09:05 GENERAL: Alert pleasant 78-year-old female HEENT: Head atraumatic,EOMI, pupils reactive, face symmetric, moist mucous membranes CARDIOVASCULAR: Regular rate and rhythm without murmurs, rubs or gallops. RESPIRATORY: Breath sounds equal bilaterally, no wheezes rales or rhonchi. ABDOMEN: Soft, nontender. Normoactive bowel sounds all 4 quadrants. No guarding or rebound. EXTREMITIES: Normal range of motion, no clubbing or edema. Neurovascularly intact NEUROLOGICAL: Alert and oriented x4.Normal gait and speech. Cranial nerves II through XII grossly intact. Good [id number], good [id number], decreased surveyor oil well directional strength in right hand, no dysarthria or aphasia, sensation in tact to soft touch bilaterally, no visual changes, no facial droop SKIN: Warm, dry, no laceration, no petechiae, no rashes or lesions. Course Orders Ordered: ED Orders 11/22/23 10:22 CT abdomen pelvis w con Stat 11/22/23 10:33 Complete Blood Count AUTO DIFF Stat Comprehensive Metabolic Panel Stat Lactate (Lactic Acid) Stat Lipase Stat Procalcitonin Stat 11/22/23 13:07 UA Complete [Urinalysis and Microscopic] Stat Urine Culture Stat 11/22/23 13:30 Blood Culture Stat Acetaminophen (Acetaminophen 325 Mg Tablet) 650 mg PO Q6H PRN PRN Reason: Fever/Mild Pain (1-3) Hydrocodone Bitart/Acetaminophen (Hydrocodone/Acet 5/325 Tablet) 1 tab PO Q4H PRN PRN Reason: Pain, Moderate (4-6) Al Hydrox/Mg Hydrox/Simethicone (Mag Hydrox/Alum/Simeth 30 Ml Udc) 30 ml PO Q6HR PRN PRN Reason: Dyspepsia Enoxaparin Sodium (Enoxaparin 30 Mg/0.3 Ml Syringe) 30 mg SUBCUT DAILY ROX Sodium Chloride (Normal Saline 0.9%) 1,000 mls @ 100 mls/hr IV CONT ROX Last Admin: 11/22/23 16:39 Dose: 100 mls/hr Documented By: SCOTYT Ceftriaxone Sodium 2,000 mg/ (Sodium Chloride) 100 mls @ 200 mls/hr IV Q24H ROX Magnesium Hydroxide (Magnesium Hydroxide 30 Ml Udc) 30 ml PO DAILY PRN PRN Reason: Constipation Naloxone HCl (Naloxone 0.4 Mg/Ml Vial) 0.2 mg IV Q2MIN PRN PRN Reason: Opiate Reversal Conjugated Estrogens [Premarin] 0.3 Mg Tablet 0.3 mg PO DAILY [facility] Nitrofurantoin Macrocrystal 50 Mg Capsule 50 mg PO BEDTIME ROX Ondansetron HCl (Ondansetron 4 Mg/2 Ml Inj) 4 mg IV Q8HR PRN PRN Reason: Nausea And Vomiting Discontinued Medications Hydromorphone HCl (Hydromorphone 0.5 Mg Inj) 0.5 mg IV NOW ONE Stop: 11/22/23 13:15 Last Admin: 11/22/23 13:28 Dose: 0.5 mg Documented By: CINTHIA Ceftriaxone Sodium 1,000 mg/ (Sodium Chloride) 100 mls @ 200 mls/hr IV NOW ONE Stop: 11/22/23 13:16 Last Infusion: 11/22/23 14:10 Dose: Infused Documented By: Admin: 11/22/23 13:28 Dose: 200 mls/hr Documented By: CINTHIA Sodium Chloride (Normal Saline 0.9%) 1,000 mls @ 100 mls/hr IV CONT ROX Last Admin: 11/22/23 14:10 Dose: 100 mls/hr Documented By: CINTHIA Ketorolac Tromethamine (Ketorolac 30 Mg/Ml Vial) 15 mg IV NOW ONE Stop: 11/22/23 10:23 Last Admin: 11/22/23 10:37 Dose: 15 mg Documented By: Vital Signs Vital signs: Vital Signs - 8 hr 11/22/23 10:30 11/22/23 10:53 11/22/23 10:53 Pulse Rate 60 58 L Respiratory Rate 11 L Blood Pressure 182/77 H Pulse Oximetry 99 99 11/22/23 11:00 11/22/23 11:00 11/22/23 12:15 Pulse Rate 58 L 89 Respiratory Rate 22 Blood Pressure 178/78 H Pulse Oximetry 100 94 11/22/23 12:17 11/22/23 12:17 11/22/23 12:30 Pulse Rate 62 59 L Respiratory Rate 20 23 Blood Pressure 164/81 H Pulse Oximetry 92 97 11/22/23 12:30 11/22/23 13:00 11/22/23 13:30 Pulse Rate 59 L 59 L Respiratory Rate 22 22 Blood Pressure 158/63 H Pulse Oximetry 97 11/22/23 13:33 11/22/23 13:33 11/22/23 14:00 Pulse Rate 64 60 Respiratory Rate 24 15 Blood Pressure 149/69 H Pulse Oximetry 99 93 11/22/23 14:00 Pulse Rate Respiratory Rate Blood Pressure 157/66 H Pulse Oximetry MDM - Extremity (Nontraumatic) Lab Data 11/22/23 10:33 11/22/23 10:33 Labs: Lab Results 11/22/23 11/22/23 Range/Units 10:33 13:07 WBC 13.8 H (4.5-11.0) X10^3/uL RBC 3.14 L (4.0-5.2) X10^6/uL Hgb 10.1 L (12.0-16.0) g/dL Hct 30.5 L (36-46) % MCV 97.1 (80-100) fL MCH 32.0 (26-34) PG MCHC 33.0 (30-36) % RDW 13.9 (11.6-14.8) % Plt Count 379 (150-400) X10^3/uL Neut % (Auto) 85.6 H (50-75) % Lymph % (Auto) 4.8 L (25-40) % [place] % (Auto) 7.1 (3-14) % Eos % (Auto) 2.0 (2-4) % Baso % (Auto) 0.5 (0-2) % Neut # (Auto) 31208 H (7564-7529) /uL Lymph # (Auto) 700 L (4630-6345) /uL [place] # (Auto) 1000 H (0-900) /uL Eos # (Auto) 300 (0-450) /uL Baso # (Auto) 100 (0-100) /uL Sodium 125 L (137-145) mmol/L Potassium 4.9 (3.4-5.1) mmol/L Chloride 102 (98-107) mmol/L Carbon Dioxide 18 L (22-32) mmol/L BUN 30 H (7-17) mg/dL Creatinine 1.62 H (0.52-1.04) mg/dL Estimated GFR 32 L (>60) mL/min BUN/Creatinine Ratio 18.5 (6-22) Glucose 110 (80-110) mg/dL Lactate 0.7 (0.7-2.1) mmol/L Calcium 8.9 (8.4-10.2) mg/dL Total Bilirubin 0.5 (0.2-1.3) mg/dL AST 35 (14-36) IU/L ALT 23 (<35) IU/L Alkaline Phosphatase 84 (38-126) U/L Total Protein 6.1 L (6.3-8.2) g/dL Albumin 3.3 L (3.5-5.0) g/dL Globulin 2.8 (1.7-4.1) g/dL Albumin/Globulin Ratio 1.2 (1.0-2.8) Lipase 274 (23-300) U/L Procalcitonin 0.135 (<0.5) ng/mL Urine Color Yellow Urine Appearance Turbid Urine pH 6.5 (4.5-8.0) Ur Specific [place] <=1.005 (1.000-1.035) Urine Protein Trace H (Negative) Urine Glucose (UA) Negative (Negative) g/dL Urine Ketones Negative (NEGATIVE) Urine Occult Blood 1+ H (Negative) Urine Nitrate Negative (Negative) Urine Bilirubin Negative (NEGATIVE) Urine Urobilinogen 0.2 (0.2) E.U./dL Ur Leukocyte Esterase 3+ H (NEGATIVE) Urine RBC 0-1/hpf D (0-5/HPF) Urine WBC >100/hpf H (0-5/HPF) Ur Squamous Epith Cells 0-1 /hpf (0-5/HPF) Urine Bacteria Many (>30) H (None) Urine Yeast 0-1/hpf (None) Ur Culture Indicated? Specimen cultured Vol Urine Centrifuged 10ml (spun) Urine Dip Bedside Urine Glucose Negative Bedside Urine Bilirubin - Negative Bedside Urine Ketone - Negative Urine Specific [place] 1.005 Bedside Urine Occult Blood + Bedside Urine pH 6.0 Bedside Urine Protein +/- 15 Bedside Urine Urobilinogen - Negative Bedside Urine Nitrite - Negative Bedside Urine Leukocytes +++ [address] scan - abdomen/pelvis: Radiologist's Impression: PROCEDURE: CT ABDOMEN PELVIS W CON INDICATIONS: right sided pain TECHNIQUE: After the administration of intravenous contrast, axial sections acquired from the lung bases to the pubic symphysis. Coronal and sagittal reformats were performed. For radiation dose reduction, the following was used: automated exposure control, adjustment of mA and/or kV according to patient size. COMPARISON: [facility], CT, CT ABDOMEN PELVIS W CON, 02/17/2020, 13:07. FINDINGS: Image quality: Diagnostic. Lower Chest: Small infiltrate/atelectasis in posterior aspect of bilateral lung bases are seen more prominent on the right side. Chronic emphysematous changes are seen. Heart size is enlarged, no pericardial effusion. ABDOMEN: Liver: No solid mass. Dapp-es-sxftftsk hepatic steatosis is seen. Gallbladder: No radiopaque gallstones or gallbladder wall thickening. Biliary ducts: No biliary dilation. Pancreas: No ductal dilation. Spleen: Size is within normal limits. Adrenal Glands: No adrenal nodules. Kidneys and Ureters: No hydronephrosis. No solid mass. No complex renal cystic lesion which requires follow up. Stomach and Bowel: Postsurgical changes are again noted in right abdomen with multiple surgical clips. There is no bowel obstruction. No gross abnormal bowel wall thickening or mesenteric fat stranding. No abscess collection. Peritoneum: No abnormal intraperitoneal fluid. No free air. Ventral Wall: No significant ventral hernia. Abdominal Nodes: No retroperitoneal or mesenteric adenopathy by size criteria. Vessels: Aorta and inferior vena cava are normal in size. PELVIS: Pelvic Organs: Unremarkable. 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 Overall appearance of bladder or neobladder is unchanged from prior study. No bladder wall mass or significant thickening. Pelvic Nodes: No enlarged lymph nodes. Miscellaneous: No inguinal hernias are seen. Bones: No aggressive osseous abnormality. Prior bilateral total hip arthroplasty. No acute vertebral body compression fracture. IMPRESSION: 1. 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 No hydronephrosis or hydroureter. No suspicious renal lesion. 2. No bowel obstruction or abnormal bowel wall thickening. No abscess collection. No free fluid or free air. 3. Finding is concerning for right worse than left bibasilar infiltrate versus atelectasis. No pleural effusion or pneumothorax. Heart size is enlarged, no pericardial effusion. Dictated by: Bairon Gay M.D. on 11/22/2023 at 12:19 MDM Narrative Medical decision making narrative: Patient 78-year-old female who presents today with abdominal pain and back pain ongoing for couple of weeks. She says this started after hip reduction however she really is nontender in her right hip and has full range of motion. She is some mild right flank pain on exam and mild right-sided abdominal pain Blood work has been reviewed she has leukocytosis of 13, mild anemia hemoglobin 10.1 hematocrit 30.5 previously 12.1/37.4 hematocrit 379, sodium 125, potassium 4.9, chloride 102, carbon dioxide 18 BUN 30 creatinine 1.6 do lactate 0.7, procalcitonin 0.135 CT abdomen pelvis does not show any acute process. She has stable neobladder and diverting ileostomy no bowel obstruction no abscess possible right versus left basilar infiltrate Is having some ongoing abdominal pain she is weak she is significant decrease in appetite but continues to drink water which I suspect is why she has hyponatremia of 125. She self catheterizes, urine does show significant WBCs with leukocytes and many bacteria, suspicion for UTI. She is given Rocephin. No indication for sepsis fluids she has a normal lactate not hypotensive and can not give large amounts of normal saline secondary to hyponatremia Dr. Bailon updated on patient's symptoms and test results and kindly accepts patient Patient did have an outpatient chest x-ray on November 17 which was unremarkable. She has not having upper respiratory symptoms or fever. Discharge Plan Departure Patient Disposition: Admitted As Inpatient Clinical Impression: Acute UTI, Acute hyponatremia Admit Date/Time: 11/22/23 14:01 Admit Provider: Lance Bailon
--- NOTE | 2023-11-22 10:22 | DI.CT.S_ITS ---
PROCEDURE: CT ABDOMEN PELVIS W CON INDICATIONS: right sided pain TECHNIQUE: After the administration of intravenous contrast, axial sections acquired from the lung bases to the pubic symphysis. Coronal and sagittal reformats were performed. For radiation dose reduction, the following was used: automated exposure control, adjustment of mA and/or kV according to patient size. COMPARISON: [facility], CT, CT ABDOMEN PELVIS W CON, 02/17/2020, 13:07. FINDINGS: Image quality: Diagnostic. Lower Chest: Small infiltrate/atelectasis in posterior aspect of bilateral lung bases are seen more prominent on the right side. Chronic emphysematous changes are seen. Heart size is enlarged, no pericardial effusion. ABDOMEN: Liver: No solid mass. [id number] hepatic steatosis is seen. Gallbladder: No radiopaque gallstones or gallbladder wall thickening. Biliary ducts: No biliary dilation. Pancreas: No ductal dilation. Spleen: Size is within normal limits. Adrenal Glands: No adrenal nodules. Kidneys and Ureters: No hydronephrosis. No solid mass. No complex renal cystic lesion which requires follow up. Stomach and Bowel: Postsurgical changes are again noted in right abdomen with multiple surgical clips. There is no bowel obstruction. No gross abnormal bowel wall thickening or mesenteric fat stranding. No abscess collection. Peritoneum: No abnormal intraperitoneal fluid. No free air. Ventral Wall: No significant ventral hernia. Abdominal Nodes: No retroperitoneal or mesenteric adenopathy by size criteria. Vessels: Aorta and inferior vena cava are normal in size. PELVIS: Pelvic Organs: Unremarkable. 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 Overall appearance of bladder or neobladder is unchanged from prior study. No bladder wall mass or significant thickening. Pelvic Nodes: No enlarged lymph nodes. Miscellaneous: No inguinal hernias are seen. Bones: No aggressive osseous abnormality. Prior bilateral total hip arthroplasty. No acute vertebral body compression fracture. IMPRESSION: 1. 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 No hydronephrosis or hydroureter. No suspicious renal lesion. 2. No bowel obstruction or abnormal bowel wall thickening. No abscess collection. No free fluid or free air. 3. Finding is concerning for right worse than left bibasilar infiltrate versus atelectasis. No pleural effusion or pneumothorax. Heart size is enlarged, no pericardial effusion. Dictated by: Bairon Gay M.D. on 11/22/2023 at 12:19 Approved by: Bairon Gay M.D. on 11/22/2023 at 12:24
[2023-11-22] MEDS: KETOROLAC 30 MG/ML VIAL 15 MG IV (10:37)
[2023-11-22 10:40] LABS: Add Manual Diff / Slide Review NO; Basophils Absolute Auto 100 /uL (0-100); Basophils Percent Auto 0.5 % (0-2); Eosinophils Absolute Auto 300 /uL (0-450); Hematocrit 30.5 % (36-46); Hemoglobin 10.1 g/dL (12.0-16.0); Lymphocytes Absolute Auto 700 /uL (1100-4500); Lymphocytes Percent Auto 4.8 % (25-40); Mean Corpuscular Volume 97.1 fL (80-100); Monocytes Absolute Auto 1000 /uL (0-900); Monocytes Percent Auto 7.1 % (3-14); Neutrophils Absolute Auto 11800 /uL (1500-7000); Neutrophils Percent Auto 85.6 % (50-75); Platelet Count 379 X10^3/uL (150-400); Red Blood Cell Count 3.14 X10^6/uL (4.0-5.2); Red Cell Distribution Width 13.9 % (11.6-14.8); White Blood Cell Count 13.8 X10^3/uL (4.5-11.0)
[2023-11-22 10:55] LABS: Alanine Aminotransferase 23 IU/L (<35); Albumin 3.3 g/dL (3.5-5.0); Albumin Globulin Ratio 1.2 (1.0-2.8); Alkaline Phosphatase 84 U/L (38-126); Aspartate Aminotransferase 35 IU/L (14-36); BUN Creatinine Ratio 18.5 (6-22); Bilirubin Total 0.5 mg/dL (0.2-1.3); Blood Urea Nitrogen 30 mg/dL (7-17); Calcium 8.9 mg/dL (8.4-10.2); Carbon Dioxide 18 mmol/L (22-32); Chloride 102 mmol/L (98-107); Estimated Glomerular Filt Rate 32 mL/min (>60); Globulin 2.8 g/dL (1.7-4.1); Glucose 110 mg/dL (80-110); HEMOLYSIS 40 (0-50); Lipase 274 U/L (23-300); Potassium 4.9 mmol/L (3.4-5.1); Sodium 125 mmol/L (137-145); Total Protein 6.1 g/dL (6.3-8.2)
[2023-11-22 13:28] LABS: Lactate (Lactic Acid) 0.7 mmol/L (0.7-2.1)
[2023-11-22] MEDS: HYDROMORPHONE 0.5 MG INJ IV (13:28)
[2023-11-22] MEDS: cefTRIAXone 1,000 MG in SODIUM CHLORIDE 0.9% 100 ML 200 MG IV (13:28)
[2023-11-22 13:44] LABS: Bilirubin Urine UA NEGATIVE (NEGATIVE); Color Urine UA YELLOW; Glucose Urine UA NEGATIVE (Negative); Ketones Urine UA NEGATIVE (NEGATIVE); Leukocyte Esterase Urine UA 3+ (NEGATIVE); Nitrite Urine UA NEGATIVE (Negative); Occult Blood Urine UA 1+ (Negative); Protein Urine UA TRACE (Negative); Specific Gravity Urine UA <=1.005 (1.000-1.035); Urobilinogen Urine UA 0.2 E.U./dL (0.2)
[2023-11-22 13:45] LABS: Procalcitonin 0.135 ng/mL (<0.5)
[2023-11-22 13:45] LABS: pH Urine UA 6.5 (4.5-8.0)
[2023-11-22 13:46] LABS: Appearance Urine UA TURBID; Urine Volume 10mL (spun)
[2023-11-22 13:53] LABS: Bacteria Urine Many (>30); RBC Urine 0-1/HPF (0-5/HPF); Squamous Epithelial Cell Urine 0-1 /HPF (0-5/HPF); WBC Urine >100/HPF (0-5/HPF)
[2023-11-22 13:54] LABS: Culture Indicated Urine Specimen Cultured
[2023-11-22] MEDS: SODIUM CHLORIDE 0.9% 1,000 ML 100 ML IV ×2 (14:10→16:39)
--- NOTE | 2023-11-22 18:27 | PC.NURSE ---
18F Coude placed. Patient uses said cath. at home for in/out cath twice daily. Cath was placed with no difficulty.
--- NOTE | 2023-11-22 19:14 | PM.HP.1 ---
History of Present Illness History of Present Illness Date Patient Seen: 11/22/23 Time Patient Seen: 19:14 Date of Onset of Symptoms: 11/21/23 Chief complaint: HIP AND BACK PAIN Narrative: Patient is an 78-year-old female who presents with right-sided abdominal flank pain. Patient has a long history apparently she was a month ago down in [place] and dislocated her hip she is spent 3 days in the hospital during that time she developed a cough which was pretty severe she was tested for COVID which was negative and not treated she eventually had her hip replaced in the operating room and was discharged was seen by an urgent care and placed on antibiotics unclear what that was. She did not really feel like it helped in all it did was give her diarrhea. She took options 6 days and then stop. She then came home and 2 weeks ago apparently was twisting in the bathroom and redislocated her hip which apparently she has been doing. She has continued with a cough. And over the last week is started having kind of right-sided back maybe upper back discomfort radiating around to the lower abdomen. She has not had any nausea or vomiting but has a decreased appetite is only been drinking fluids. Without other changes. 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 Patient had fallopian issues and uterine issues and chronic appendicitis although this was removed. She has had no night sweats or other changes. And otherwise is relatively healthy. Review of systems is otherwise negative. [facility]LY [facility] Medical History Palpitations Osteoarthritis Intermittent small bowel obstruction due to adhesions Surgical History History of construction of external stoma of urinary system (~1988) Hx of bladder repair surgery History of bilateral tubal ligation Hx of breast biopsy Hx of appendectomy History of hysterectomy Hx of resection of small bowel History of total left hip replacement Status post hysterectomy Family History Father Hypertension Stroke Sister Age: 70 Pacemaker Heart disease Social History marital status: household members: spouse Smoking Status: Never smoker alcohol intake: current substance use type: does not use Meds Home Medications and Allergies Home Medications Medication Instructions Recorded Confirmed Type ascorbic acid (vitamin C) 500 mg 500 mg PO QDAY ##0 02/24/12 11/22/23 History tablet d-mannose 500 mg capsule 500 mg PO DAILY 03/19/21 11/22/23 History apple cider vinegar 500 mg tablet 500 mg PO QAM 07/22/22 11/22/23 History biotin 5,000 mcg sublingual tablet 5,000 mcg sublingual DAILY 07/22/22 11/22/23 History calcium citrate 250 mg 2 tab PO ONCE 07/22/22 11/22/23 History calcium-vitamin D3 5 mcg (200 unit) tablet cholecalciferol (vitamin D3) 50 2,000 unit PO QDAY #0 caps 07/22/22 11/22/23 History mcg (2,000 unit) capsule (Vitamin D3) coQ10 (ubiquinol) 100 mg capsule 100 mg PO ONCE 07/22/22 11/22/23 History (CoQmax Ubiquinol) lutein 20 mg-zeaxanthin 1,000 mcg 1 cap PO QAM 07/22/22 11/22/23 History capsule mecobalamin (vitamin B12) 2,500 2,500 mcg PO QAM 07/22/22 11/22/23 History mcg chewable tablet multivitamin (Multiple Vitamins 1 tab PO DAILY 07/22/22 11/22/23 History tablet) nitrofurantoin macrocrystal 50 mg 50 mg PO BEDTIME 08/11/22 11/22/23 History capsule propranolol 60 mg capsule,24 60 mg PO DAILY #90 caps 01/22/23 11/22/23 Rx hr,extended release conjugated estrogens 0.3 mg tablet 0.3 mg PO DAILY 08/13/23 11/22/23 History (Premarin) Disabled Parking Permit See Rx Instructions .Route 11/11/23 11/22/23 Rx .COMPLEX #1 ea inhalational spacing device #1 ea 11/11/23 11/22/23 Rx (BreatheRite MDI Spacer) Allergies Allergy/AdvReac Type Severity Reaction Status Date / Time levofloxacin [From Levaquin] Allergy Severe Tendonitis Verified 11/11/23 15:40 ofloxacin Allergy Severe TENDONITIS Verified 11/11/23 15:40 Sulfa (Sulfonamide Allergy Mild hives Verified 11/11/23 15:40 Antibiotics) Review of Systems Review of Systems Narrative: See above Exam Vital Signs (past 8 hours): - 11/22/23 12:15 11/22/23 12:17 11/22/23 12:17 Temperature Pulse Rate 89 62 Respiratory Rate 20 Blood Pressure 164/81 H Pulse Oximetry 94 92 Oxygen Delivery Method Oxygen Flow Rate 11/22/23 12:30 11/22/23 12:30 11/22/23 13:00 Temperature Pulse Rate 59 L 59 L Respiratory Rate 23 22 Blood Pressure 158/63 H Pulse Oximetry 97 Oxygen Delivery Method Oxygen Flow Rate 11/22/23 13:30 11/22/23 13:33 11/22/23 13:33 Temperature Pulse Rate 59 L 64 Respiratory Rate 22 24 Blood Pressure 149/69 H Pulse Oximetry 97 99 Oxygen Delivery Method Oxygen Flow Rate 11/22/23 14:00 11/22/23 14:00 11/22/23 14:30 Temperature Pulse Rate 60 Respiratory Rate 15 Blood Pressure 157/66 H 155/64 H Pulse Oximetry 93 Oxygen Delivery Method Oxygen Flow Rate 11/22/23 14:30 11/22/23 14:55 11/22/23 16:02 Temperature 96.5 F L Pulse Rate 60 66 Respiratory Rate 19 17 Blood Pressure 146/53 H Pulse Oximetry 98 99 99 Oxygen Delivery Method Room Air Oxygen Flow Rate 0 Oxygen Delivery Method Room Air Oxygen Flow Rate 0 Narrative Exam Narrative: Alert mildly fatigued female lying in bed in no acute distress HEENT exam shows mucous membranes are moist neck supple without adenopathy lungs are clear. Heart is regular rate and rhythm abdomen is soft positive bowel sounds nontender. Flanks show some tenderness primarily in the lower ribs with no swelling erythema or bruising. She does have a little bit of upper flank pain. Extremities are normal with no tenderness in the calves and neurologic exam is normal Objective Labs 11/22/23 10:33 11/22/23 10:33 Labs: Laboratory Results - last 24 hr 11/22/23 11/22/23 10:33 13:07 WBC 13.8 H RBC 3.14 L Hgb 10.1 L Hct 30.5 L MCV 97.1 MCH 32.0 MCHC 33.0 RDW 13.9 Plt Count 379 Neut % (Auto) 85.6 H Lymph % (Auto) 4.8 L [place] % (Auto) 7.1 Eos % (Auto) 2.0 Baso % (Auto) 0.5 Neut # (Auto) 96276 H Lymph # (Auto) 700 L [place] # (Auto) 1000 H Eos # (Auto) 300 Baso # (Auto) 100 Sodium 125 L Potassium 4.9 Chloride 102 Carbon Dioxide 18 L BUN 30 H Creatinine 1.62 H Estimated GFR 32 L BUN/Creatinine Ratio 18.5 Glucose 110 Lactate 0.7 Calcium 8.9 Total Bilirubin 0.5 AST 35 ALT 23 Alkaline Phosphatase 84 Total Protein 6.1 L Albumin 3.3 L Globulin 2.8 Albumin/Globulin Ratio 1.2 Lipase 274 Procalcitonin 0.135 Urine Color Yellow Urine Appearance Turbid Urine pH 6.5 Ur Specific [place] <=1.005 Urine Protein Trace H Urine Glucose (UA) Negative Urine Ketones Negative Urine Occult Blood 1+ H Urine Nitrate Negative Urine Bilirubin Negative Urine Urobilinogen 0.2 Ur Leukocyte Esterase 3+ H Urine RBC 0-1/hpf D Urine WBC >100/hpf H Ur Squamous Epith Cells 0-1 /hpf Urine Bacteria Many (>30) H Urine Yeast 0-1/hpf Ur Culture Indicated? Specimen cultured Vol Urine Centrifuged 10ml (spun) Assessment & Plan Assessment & Plan narrative: Hypo natremia. No recent sodium documented assume that this is a significant change since he had labs within the month and did not have any changes. Probably secondary to her decreased appetite and primarily fluid intake. Will hydrate with saline and re-evaluate. Hopefully trend will be better tomorrow and we will slowly reinstitute food. Abdominal flank pain. It is somewhat unclear what this represents. No evidence of kidney stone. Does not have an appendix or uterus or tube. Nothing showed on CT scan. No evidence of abscess or other changes. 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 Patient usually takes Macrobid for this but it is unclear. Patient does have bilateral infiltrates right greater the left and has had a persistent cough and could this be related to that I guess it is possible she is on Rocephin. I think at this point I am going to hold his I do not know if this is chronic or not. Has had some traveling in the question whether or not she needs a CT scan of her chest to rule out PE for chronic cough with some risk. Will discuss with her usual doctor tomorrow morning. Certainly not hypoxic or in any respiratory distress but her pain does go up into her lower chest wall. I am not so this is all kidney related as far as her back pain goes. Patient is somewhat nauseated this time. And I will switch to IV medication she has Zofran written and we will follow. Elevated white count. Mild. We discussed this. Could be related either to her bladder possible pyelo I do not see any other definitive sources other than possible lung. Which we will have to possibly follow. At this point will continue Rocephin shows cultures which probably are due potentially be contaminated since she does self catheterization. Will have to watch what that does. Follow from there. Patient does understand. Will follow. Nausea. Probably secondary to her infection whether it is definitive otherwise Zofran hydration probably will change her diet to full and will follow from there. Patient understands questions answered. Pain pill maybe making her a little sick but she is having more pain. History of self catheterization thing I think at this point secondary to her being in the hospital will put long-term Hyman in at least for the next 24 hours just to continue with treatment and will follow from there. Watch I's and O's closely hopefully can discontinue that tomorrow. Dehydration. Will bump fluids and watch closely. Re-evaluate in a.m.. No cardiac status. Acute renal failure on chronic certainly worsened from last time we checked not sure where her baseline is. Will have to follow. Recheck a.m.. Hydration. Probably prerenal. Although certainly infection could be causing some of this issue. Palpitations. Apparently he has had these since COVID vaccine. Will continue her propranolol. No issue not to. GI prophylaxis not needed at this time. Code status full. Disposition. My guess is this will be a few days. Just to write her electrolyte abnormalities we will re-evaluate from there. Patient understands. Questions answered. Time-Based Coding :: [TOTAL MINUTES] spent with patient and on the chart (including review of chart, obtaining history, exam, reviewing outside data, placing orders, documenting exam and treatment plan, and counseling patient) on [DATE].
[2023-11-22] MEDS: MORPHINE 2 MG/ML INJ IV (19:45)
[2023-11-22] MEDS: SODIUM CHLORIDE 0.9% 1,000 ML 125 ML IV (23:06)
[2023-11-23 00:10] VITALS: O2SAT 95
[2023-11-23] MEDS: MORPHINE 2 MG/ML INJ IV ×6 (00:14→23:52)
[2023-11-23 06:49] LABS: Add Manual Diff / Slide Review NO; Basophils Absolute Auto 100 /uL (0-100); Basophils Percent Auto 0.5 % (0-2); Eosinophils Absolute Auto 300 /uL (0-450); Eosinophils Percent Auto 2.1 % (2-4); Hematocrit 29.2 % (36-46); Hemoglobin 9.7 g/dL (12.0-16.0); Lymphocytes Absolute Auto 500 /uL (1100-4500); Lymphocytes Percent Auto 4.2 % (25-40); Mean Corpuscular HGB Conc 33.2 % (30-36); Mean Corpuscular Hemoglobin 32.4 PG (26-34); Mean Corpuscular Volume 97.7 fL (80-100); Monocytes Absolute Auto 1000 /uL (0-900); Monocytes Percent Auto 8.5 % (3-14); Neutrophils Absolute Auto 9900 /uL (1500-7000); Neutrophils Percent Auto 84.7 % (50-75); Platelet Count 394 X10^3/uL (150-400); Red Blood Cell Count 2.98 X10^6/uL (4.0-5.2); Red Cell Distribution Width 13.7 % (11.6-14.8); White Blood Cell Count 11.7 X10^3/uL (4.5-11.0)
[2023-11-23] MEDS: SODIUM CHLORIDE 0.9% 1,000 ML 125 ML IV ×3 (06:50→23:53)
[2023-11-23 07:00] VITALS: BP 149/60; PULSE 65; RESP 16; TEMP 36.1; O2SAT 100
[2023-11-23 07:01] LABS: Alanine Aminotransferase 19 IU/L (<35); Albumin Globulin Ratio 1.1 (1.0-2.8); Alkaline Phosphatase 79 U/L (38-126); Aspartate Aminotransferase 30 IU/L (14-36); Bilirubin Total 0.4 mg/dL (0.2-1.3); Blood Urea Nitrogen 21 mg/dL (7-17); Carbon Dioxide 17 mmol/L (22-32); Chloride 111 mmol/L (98-107); Estimated Glomerular Filt Rate 38 mL/min (>60); Globulin 2.7 g/dL (1.7-4.1); Glucose 88 mg/dL (80-110); HEMOLYSIS < 15 (0-50); Potassium 4.5 mmol/L (3.4-5.1); Sodium 133 mmol/L (137-145); Total Protein 5.7 g/dL (6.3-8.2)
--- NOTE | 2023-11-23 08:19 | DI.CT.S_ITS ---
PROCEDURE: CT CHEST W CON INDICATIONS: bilateral lower lob infiltrates TECHNIQUE: After the administration of intravenous contrast, 5 mm thick sections acquired from the pulmonary apices to the posterior costophrenic angles. 1 mm axial lung, 5 mm thick coronal and sagittal reformats and 7 mm axial MIP were acquired. For radiation dose reduction, the following was used: automated exposure control, adjustment of mA and/or kV according to patient size. COMPARISON: [facility], CT, CT ABDOMEN PELVIS W CON, 02/17/2020, 13:07. [facility], CT, CT ABDOMEN PELVIS W CON, 11/22/2023, 11:24. FINDINGS: Image quality: Diagnostic. Lower Neck: No enlarged lymph nodes. Thyroid: No thyroid nodules which require sonographic follow up, per consensus guidelines. Axillae: No enlarged lymph nodes. Chest Wall: Unremarkable. Bones: Left anterolateral 4th-6th rib fractures, (). The left 6th rib fracture was not seen in 2019. Minimal displacement. Mild adjacent pleural thickening. Small pulmonary contusion. No laceration. Lungs and Pleura: No pneumothorax. Trace left and minuscule right pleural effusions. Curvilinear are consolidative opacity at the right lung base is not significantly changed. Bibasilar streaky opacity. Heart: Heart size is normal. No pericardial effusion. Thoracic Vessels: The aorta and pulmonary arteries demonstrate normal size. No central pulmonary embolism. Mediastinum and Lacy: No enlarged lymph nodes. Esophagus: No wall thickening. No hiatal hernia. Upper Abdomen: Visualized upper abdomen solid organs and bowel loops appear normal. Asymmetric elevation of the right hemidiaphragm. IMPRESSION: 1. Left anterior lateral 4-6th rib fractures. Small pulmonary contusion in the left upper lung. 2. Trace left pleural effusion or hemothorax. No pneumothorax. 3. Small curvilinear consolidative opacity at the right lung base. Unchanged. Favor atelectasis over pneumonia. Mild streaky opacity at the left lung base. Favor atelectasis. Dictated by: Stone Lowe M.D. on 11/23/2023 at 11:44 Approved by: Stone Lowe M.D. on 11/23/2023 at 11:55
[2023-11-23] MEDS: ENOXAPARIN 30 MG/0.3 ML SYRINGE SUBCUT (08:49)
--- NOTE | 2023-11-23 09:20 | P.PN_ITS ---
Subjective Subjective Date Patient Seen: 11/23/23 Time Patient Seen: 09:20 Interval history: Patient seen and evaluated this morning. She says she is doing well. She is still having abdominal pain right-sided flank pain requiring pain medication for this. Slept okay. Eating well has a clear liquid diet would like something more substantial. No problems with bowel movement has a Hyman catheter in her bladder. Vital signs are stable overnight she is afebrile she is oxygenating well. She is still getting normal saline. Discussed care with the admitting physician Exam Vital Signs (past 8 hours): - 11/23/23 07:00 Temperature 96.9 F L Pulse Rate 65 Respiratory Rate 16 Blood Pressure 149/60 H Pulse Oximetry 100 Oxygen Flow Rate 0 Oxygen Delivery Method Room Air Oxygen Flow Rate 0 Narrative Exam Narrative: Gen.: Alert good historian HEENT: Pupils equal round and reactive or mucosa is moist Cardio: S1-S2 regular rate and rhythm Respiratory: Decreased breath sounds at lung bases with some scant crackles normal respiratory effort Abdomen: Soft mild epigastric tenderness Extremities: Full range of motion no appreciable weakness no cyanosis or edema. Objective Labs 11/23/23 06:20 11/23/23 06:20 Labs: Laboratory Results - last 24 hr 11/22/23 11/22/23 11/23/23 10:33 13:07 06:20 WBC 13.8 H 11.7 H RBC 3.14 L 2.98 L Hgb 10.1 L 9.7 L Hct 30.5 L 29.2 L MCV 97.1 97.7 MCH 32.0 32.4 MCHC 33.0 33.2 RDW 13.9 13.7 Plt Count 379 394 Neut % (Auto) 85.6 H 84.7 H Lymph % (Auto) 4.8 L 4.2 L [place] % (Auto) 7.1 8.5 Eos % (Auto) 2.0 2.1 Baso % (Auto) 0.5 0.5 Neut # (Auto) 32089 H 9900 H Lymph # (Auto) 700 L 500 L [place] # (Auto) 1000 H 1000 H Eos # (Auto) 300 300 Baso # (Auto) 100 100 Sodium 125 L 133 L Potassium 4.9 4.5 Chloride 102 111 H Carbon Dioxide 18 L 17 L BUN 30 H 21 H Creatinine 1.62 H 1.40 H Estimated GFR 32 L 38 L BUN/Creatinine Ratio 18.5 15.0 Glucose 110 88 Lactate 0.7 Calcium 8.9 8.0 L Total Bilirubin 0.5 0.4 AST 35 30 ALT 23 19 Alkaline Phosphatase 84 79 Total Protein 6.1 L 5.7 L Albumin 3.3 L 3.0 L Globulin 2.8 2.7 Albumin/Globulin Ratio 1.2 1.1 Lipase 274 Procalcitonin 0.135 Urine Color Yellow Urine Appearance Turbid Urine pH 6.5 Ur Specific [place] <=1.005 Urine Protein Trace H Urine Glucose (UA) Negative Urine Ketones Negative Urine Occult Blood 1+ H Urine Nitrate Negative Urine Bilirubin Negative Urine Urobilinogen 0.2 Ur Leukocyte Esterase 3+ H Urine RBC 0-1/hpf D Urine WBC >100/hpf H Ur Squamous Epith Cells 0-1 /hpf Urine Bacteria Many (>30) H Urine Yeast 0-1/hpf Ur Culture Indicated? Specimen cultured Vol Urine Centrifuged 10ml (spun) [facility] Medical History Palpitations Osteoarthritis Intermittent small bowel obstruction due to adhesions Surgical History History of construction of external stoma of urinary system (~1988) Hx of bladder repair surgery History of bilateral tubal ligation Hx of breast biopsy Hx of appendectomy History of hysterectomy Hx of resection of small bowel History of total left hip replacement Status post hysterectomy Family History Father Hypertension Stroke Sister Age: 70 Pacemaker Heart disease Social History marital status: household members: spouse Smoking Status: Never smoker alcohol intake: current substance use type: does not use Assessment & Plan Assessment and plan (1) Pneumonia: Qualifiers: Pneumonia type: due to unspecified organism Status: Acute Plan Pneumonia community acquired. Can not exclude viral pneumonia. On CT scan of abdomen pelvis patient has bilateral patchy infiltrates in her lower lung gordon consistent with pneumonia she has had a cough for 4 weeks since traveling to [place]. I would like to do a further evaluation of her lungs with a CT of her chest. She also has some chronic changes for her lungs as well. She is currently on ceftriaxone will add Zithromax. She has not specifically hypoxic or tachycardic. She has chronic kidney disease will have to be careful with her kidneys as she obtains contrast. Blood count initially elevated white blood cell count is trending down Hyponatremia. Patient admitted with low sodium. Patient getting normal saline fluid. Her sodium is improved. Potential combination of not feeling well pneumonia etc.. Will decrease her IV fluid today. Trend sodium level as it is already improving Epigastric pain. Patient with epigastric pain. CT scan shows no evidence of acute derangement of her abdomen such as stomach kidneys etc.. She has bilateral pneumonia worse on the right than left. Wonder for pain is from coughing that she is having and her pneumonia. Will continue to treat with anti emetics and pain medication. Urinary tract infection. Patient's urine is showing leukocytes and white blood cell positive she has a neobladder procedure will send it for culture. Will trend culture and sensitivity on her culture of her urine. She is currently on ceftriaxone and Zithromax. Patient has a Hyman catheter in place. Will remove her Hyman catheter today. Acute kidney injury on chronic kidney disease. Patient getting IV fluids kidney function is improved today. Getting IV contrast for CT scan will have to monitor her electrolytes and kidney function continue with IV fluids at this point. SVT. Patient has a history of SVT. On propanolol was restarted in the hospital Code status full. Disposition. DC Hyman advance diet continue with normal saline CT scan of chest continue with IV antibiotics hospitalization for 24-48 more hours Time-Based Coding :: [TOTAL MINUTES] spent with patient and on the chart (including review of chart, obtaining history, exam, reviewing outside data, placing orders, documenting exam and treatment plan, and counseling patient) on [DATE]. PROFEE Charge codes Subsequent inpatient/observation care: 25232
[2023-11-23] MEDS: AZITHROMYCIN 500 MG in DEXTROSE 5% IN WATER 250 ML 250 MG IV (09:46)
[2023-11-23] MEDS: cefTRIAXone 2,000 MG in SODIUM CHLORIDE 0.9% 100 ML 200 MG IV (12:46)
[2023-11-23] MEDS: CONJUGATED ESTROGENS 0.3 MG 0.3 EACH PO (12:50)
[2023-11-23] MEDS: PROPRANOLOL 10 MG TABLET 30 MG PO (12:50)
[2023-11-23 12:51] VITALS: BP 111/51; PULSE 74
--- NOTE | 2023-11-23 13:00 | CM.DANOTE ---
Initial DCP Assessment Note Pt is a 78yo female, resident of [place], arrives with complaint of hip and back pain, admitted for further work up and management of PNA, community acquired, hyponatremia, epigastric pain, UTI PCP: Jose Juan Barraza Payer: [employer] out of [facility] Reviewed chart, met with patient and spouse to introduce self and role. Patient reports that she lives independently with spouse who is also indp. Patient denies hx of HH or SNF and denies needs from this CM team currently. No barriers identified at this time to patient's safe discharge home w/family to assist; close outpatient f/u recommended. CM team will plan to follow clinical course closely in case any DC needs or concerns arise. MIKEL Trevino Discharge Planning/Care Management CM Discharge Assessment Start: 11/23/23 12:58 Freq: Status: Active Protocol: Document 11/23/23 12:58 XI (Rec: 11/23/23 13:00 XI [id number]) Discharge Planning Assessment Assigned Manager Drug Safety MIKEL Mistry DPOA/Assigned Designee Name Leyda Garnica, spouse Contact Information [phone], Advance Directives? Yes Advance Directives on File No History Provided By Patient,Significant Other, Medical Record Prior Living Arrangements House Household Members spouse Type of transporation used prior to Drives own vehicle admit Independent with ADL's Yes Is patient alert and oriented? Yes Barriers to Discharge No Discharge Plan Home Transportation Arrangement Spouse Referrals Initiated None needed
[2023-11-23 13:02] VITALS: BMI 26.3
[2023-11-23 16:02] VITALS: O2SAT 93
[2023-11-23 19:00] VITALS: BP 138/56; PULSE 66; RESP 20; TEMP 36.2; O2SAT 98
[2023-11-23] MEDS: GUAIFENESIN/DM 200/20 MG/10 ML UDC PO (23:51)
[2023-11-24] VITALS (8 sets, daily range): BP systolic 102–155; BP diastolic 43–70; PULSE 63–76; RESP 12–18; TEMP 35.9–37.1; O2SAT 18–100
--- NOTE | 2023-11-24 | PATH_ITS ---
[facility] Accession Number: [id number] No. of containers..01 Tissue . 01 Material submitted: . gastrointestinal site - ANTRUM BIOPSIES . 01 Diagnosis: ANTRUM BIOPSIES: Gastric mucosa with mild chronic inflammation. No Helicobacter organisms identified. No intestinal metaplasia, dysplasia, or malignancy identified. [facility] 11/27/2023 1320 Local . 01 Electronically signed: . Jordan Palafox MD, Pathologist NPI- [id number] . 01 Gross description: . ANTRUM BIOPSIES: Received in formalin are 4 fragment(s) of ramos, soft tissue measuring 0.1 x 0.1 x 0.1 cm to 0.3 x 0.2 x 0.2 cm submitted entirely in 1 cassette(s) /[facility] 11/27/2023 1320 Local . 01 Microscopic: . ANTRUM BIOPSIES: An immunohistochemical stain was performed to evaluate for Helicobacter organisms and is negative. The control stains appropriately. * This test was developed and its performance characteristics determined by [employer]. It has not been cleared or approved by the U.S. Food and Drug Administration. The FDA has determined that such clearance or approval is not necessary. This test is used for clinical purposes. It should not be regarded as investigational or for research. . 01 Pathologist provided ICD-10: K29.50 . 01 CPT . 968389, V86115 Performed at: [address] [address], [place], [place] [id number] MD Jordan Palafox MD Phone: [phone]
[2023-11-24] MEDS: MORPHINE 2 MG/ML INJ IV ×2 (03:31→07:47)
[2023-11-24 06:48] LABS: Add Manual Diff / Slide Review NO; Basophils Absolute Auto 100 /uL (0-100); Basophils Percent Auto 0.7 % (0-2); Eosinophils Absolute Auto 200 /uL (0-450); Eosinophils Percent Auto 3.1 % (2-4); Hemoglobin 8.2 g/dL (12.0-16.0); Lymphocytes Absolute Auto 600 /uL (1100-4500); Lymphocytes Percent Auto 7.5 % (25-40); Mean Corpuscular Hemoglobin 32.3 PG (26-34); Mean Corpuscular Volume 98.1 fL (80-100); Monocytes Absolute Auto 1000 /uL (0-900); Monocytes Percent Auto 12.1 % (3-14); Neutrophils Absolute Auto 6000 /uL (1500-7000); Neutrophils Percent Auto 76.6 % (50-75); Platelet Count 353 X10^3/uL (150-400); Red Blood Cell Count 2.55 X10^6/uL (4.0-5.2); Red Cell Distribution Width 14.1 % (11.6-14.8); White Blood Cell Count 7.9 X10^3/uL (4.5-11.0)
[2023-11-24 06:59] LABS: Alanine Aminotransferase 15 IU/L (<35); Albumin 2.4 g/dL (3.5-5.0); Albumin Globulin Ratio 0.9 (1.0-2.8); Alkaline Phosphatase 61 U/L (38-126); Aspartate Aminotransferase 26 IU/L (14-36); BUN Creatinine Ratio 13.4 (6-22); Bilirubin Total 0.2 mg/dL (0.2-1.3); Blood Urea Nitrogen 17 mg/dL (7-17); Calcium 7.8 mg/dL (8.4-10.2); Carbon Dioxide 18 mmol/L (22-32); Chloride 116 mmol/L (98-107); Estimated Glomerular Filt Rate 43 mL/min (>60); Globulin 2.6 g/dL (1.7-4.1); Glucose 87 mg/dL (80-110); HEMOLYSIS < 15 (0-50); Potassium 4.1 mmol/L (3.4-5.1); Sodium 135 mmol/L (137-145)
[2023-11-24] MEDS: GUAIFENESIN/DM 200/20 MG/10 ML UDC PO (07:57)
[2023-11-24] MEDS: AZITHROMYCIN 500 MG in DEXTROSE 5% IN WATER 250 ML 250 MG IV (07:58)
[2023-11-24 08:10] LABS: Lipase 159 U/L (23-300)
[2023-11-24] MEDS: TRAMADOL 50 MG TABLET PO ×3 (08:37→20:06)
--- NOTE | 2023-11-24 09:33 | PM.CN ---
History of Present Illness Consult details Date Patient Seen: 11/24/23 Time Patient Seen: 09:33 Chief complaint: HIP AND BACK PAIN Narrative: Ana Luisa is a an 78-year-old woman who presented to emergency room 2 days ago with abdomen and back back pain. She had recently had hip dislocation and has been taking a leave for past week or so. Her abdominal pain has been bad for the past week. She was also had abdominal discomfort and nausea with vomiting for quite some time after she eats. Her hemoglobin this morning was 8.2 which is down from 9.7 yesterday. She has never had an EGD before. Meds Home Medications and Allergies Home Medications Medication Instructions Recorded Confirmed Type ascorbic acid (vitamin C) 500 mg 500 mg PO DAILY ##0 02/24/12 11/23/23 History tablet apple cider vinegar 500 mg tablet 500 mg PO DAILY 07/22/22 11/23/23 History biotin 5,000 mcg sublingual tablet 5,000 mcg sublingual DAILY 07/22/22 11/22/23 History calcium citrate 250 mg 2 tab PO DAILY 07/22/22 11/23/23 History calcium-vitamin D3 5 mcg (200 unit) tablet cholecalciferol (vitamin D3) 50 2,000 unit PO DAILY #0 caps 07/22/22 11/23/23 History mcg (2,000 unit) capsule (Vitamin D3) coQ10 (ubiquinol) 100 mg capsule 100 mg PO DAILY 07/22/22 11/23/23 History (CoQmax Ubiquinol) lutein 20 mg-zeaxanthin 1,000 mcg 1 cap PO DAILY 07/22/22 11/23/23 History capsule mecobalamin (vitamin B12) 2,500 2,500 mcg PO DAILY 07/22/22 11/23/23 History mcg chewable tablet multivitamin (Multiple Vitamins 1 tab PO DAILY 07/22/22 11/22/23 History tablet) nitrofurantoin macrocrystal 50 mg 50 mg PO BEDTIME 08/11/22 11/22/23 History capsule propranolol 60 mg capsule,24 60 mg PO DAILY #90 caps 01/22/23 11/22/23 Rx hr,extended release conjugated estrogens 0.3 mg tablet 0.3 mg PO DAILY 08/13/23 11/22/23 History (Premarin) Disabled Parking Permit See Rx Instructions .Route 11/11/23 11/22/23 Rx .COMPLEX #1 ea inhalational spacing device #1 ea 11/11/23 11/22/23 Rx (BreatheRite MDI Spacer) Allergies Allergy/AdvReac Type Severity Reaction Status Date / Time levofloxacin [From Levaquin] Allergy Severe Tendonitis Verified 11/11/23 15:40 ofloxacin Allergy Severe TENDONITIS Verified 11/11/23 15:40 Sulfa (Sulfonamide Allergy Mild hives Verified 11/11/23 15:40 Antibiotics) Exam Vital Signs (past 8 hours): - 11/24/23 08:00 Temperature 97.1 F L Pulse Rate 65 Respiratory Rate 14 Blood Pressure 118/43 L Pulse Oximetry 97 Oxygen Flow Rate 0 Oxygen Delivery Method Room Air Oxygen Flow Rate 0 Narrative Exam Narrative: Abdomen is soft, tender to palpation in the right upper quadrant and epigastrium Low midline surgical scar Objective Labs 11/24/23 06:24 11/24/23 06:24 Labs: Laboratory Results - last 24 hr 11/24/23 06:24 WBC 7.9 RBC 2.55 L Hgb 8.2 L Hct 25.0 L MCV 98.1 MCH 32.3 MCHC 33.0 RDW 14.1 Plt Count 353 Neut % (Auto) 76.6 H Lymph % (Auto) 7.5 L [place] % (Auto) 12.1 Eos % (Auto) 3.1 Baso % (Auto) 0.7 Neut # (Auto) 6000 Lymph # (Auto) 600 L [place] # (Auto) 1000 H Eos # (Auto) 200 Baso # (Auto) 100 Sodium 135 L Potassium 4.1 Chloride 116 H Carbon Dioxide 18 L BUN 17 Creatinine 1.27 H Estimated GFR 43 L BUN/Creatinine Ratio 13.4 Glucose 87 Calcium 7.8 L Total Bilirubin 0.2 AST 26 ALT 15 Alkaline Phosphatase 61 Total Protein 5.0 L Albumin 2.4 L Globulin 2.6 Albumin/Globulin Ratio 0.9 L Lipase 159 PFSH Medical History Palpitations Osteoarthritis Intermittent small bowel obstruction due to adhesions Surgical History History of construction of external stoma of urinary system (~1988) Hx of bladder repair surgery History of bilateral tubal ligation Hx of breast biopsy Hx of appendectomy History of hysterectomy Hx of resection of small bowel History of total left hip replacement Status post hysterectomy Family History Father Hypertension Stroke Sister Age: 70 Pacemaker Heart disease Social History marital status: household members: spouse Tobacco & Substance Use Smoking Status: Never smoker alcohol intake: current substance use type: does not use Assessment & Plan Assessment and plan (1) Anemia: Qualifiers: Anemia type: unspecified type Qualified Code(s): D64.9 - Anemia, unspecified Status: Acute Plan We discussed the risks and benefits of esophagogastroduodenoscopy for epigastric pain and anemia. We will be able to fit her in the schedule later this afternoon with either me or my partner Dr. Manning depending on OR availability. She would like to proceed. Time-Based Coding :: [TOTAL MINUTES] spent with patient and on the chart (including review of chart, obtaining history, exam, reviewing outside data, placing orders, documenting exam and treatment plan, and counseling patient) on [DATE].
--- NOTE | 2023-11-24 09:54 | PM.PN.1 ---
Subjective Subjective Date Patient Seen: 11/24/23 Time Patient Seen: 09:54 Interval history: Patient seen and evaluated this morning. Did well overnight. Still having quite a bit of epigastric pain and discomfort requiring morphine. She says oral medication makes her feel goofy. She is having some mild nausea. Vital signs have been stable. She has been afebrile. She says she has decreased appetite with some mild nausea. Discussed about pain management with her today. Reviewed CT scan of her chest abdomen and pelvis. CT scan shows fractured ribs. She says she does not recollect falling but did do a lot of coughing and has continued to cough. Cough suppressants are working better. Exam Vital Signs (past 8 hours): - 11/24/23 08:00 Temperature 97.1 F L Pulse Rate 65 Respiratory Rate 14 Blood Pressure 118/43 L Pulse Oximetry 97 Oxygen Flow Rate 0 Oxygen Delivery Method Room Air Oxygen Flow Rate 0 Narrative Exam Narrative: Gen.: Alert good historian HEENT: Pupils equal round and reactive or mucosa is moist Cardio: Regular rate and rhythm Respiratory: Lungs show normal respiratory effort some fine crackles at lung bases. Pain over the ribs on the left side. Abdomen: Soft mild epigastric tenderness. Extremities: Warm dry perfused Objective Labs 11/24/23 06:24 11/24/23 06:24 Labs: Laboratory Results - last 24 hr 11/24/23 06:24 WBC 7.9 RBC 2.55 L Hgb 8.2 L Hct 25.0 L MCV 98.1 MCH 32.3 MCHC 33.0 RDW 14.1 Plt Count 353 Neut % (Auto) 76.6 H Lymph % (Auto) 7.5 L [place] % (Auto) 12.1 Eos % (Auto) 3.1 Baso % (Auto) 0.7 Neut # (Auto) 6000 Lymph # (Auto) 600 L [place] # (Auto) 1000 H Eos # (Auto) 200 Baso # (Auto) 100 Sodium 135 L Potassium 4.1 Chloride 116 H Carbon Dioxide 18 L BUN 17 Creatinine 1.27 H Estimated GFR 43 L BUN/Creatinine Ratio 13.4 Glucose 87 Calcium 7.8 L Total Bilirubin 0.2 AST 26 ALT 15 Alkaline Phosphatase 61 Total Protein 5.0 L Albumin 2.4 L Globulin 2.6 Albumin/Globulin Ratio 0.9 L Lipase 159 [facility] Medical History Palpitations Osteoarthritis Intermittent small bowel obstruction due to adhesions Surgical History History of construction of external stoma of urinary system (~1988) Hx of bladder repair surgery History of bilateral tubal ligation Hx of breast biopsy Hx of appendectomy History of hysterectomy Hx of resection of small bowel History of total left hip replacement Status post hysterectomy Family History Father Hypertension Stroke Sister Age: 70 Pacemaker Heart disease Social History marital status: household members: spouse Smoking Status: Never smoker alcohol intake: current substance use type: does not use Assessment & Plan Assessment and plan (1) Pneumonia: Qualifiers: Pneumonia type: due to unspecified organism Status: Acute Plan Pneumonia community acquired. Can not exclude viral pneumonia. CT of lungs done yesterday showed consolidation versus atelectasis in lung bases. Rib fractures. Patient states it is because of coughing she has not fallen. Continue with ceftriaxone and Zithromax. White blood cell count is improved. She has not on oxygen. Continue with IV antibiotics for 24 more hours and then switch to oral antibiotics. Epigastric pain nausea continuing. CT of abdomen and chest reviewed. Pain could be due to pneumonia versus stomach ulcer gastritis. Consult General surgery for evaluation of epigastric pain and nausea for upper endoscopy. Acute anemia. Patient has anemia today. Maybe consistent with her epigastric pain. Also could be delusional. Will go ahead and stop her IV fluid. Hyponatremia. Patient's sodium level is improved. Stop normal saline. Urinary tract infection. Urine culture shows minimal growth. Identification and susceptibilities pending. Continue ceftriaxone and Zithromax white blood cell count is improved. Patient history of neobladder procedure. Self catheterization Hyman catheter was removed yesterday. Acute kidney injury on chronic kidney disease. Kidney function back to baseline. Stop IV fluids. Monitor for electrolyte and kidney dysfunction. Patient received contrast from CT scan. SVT. Patient has a history of SVT. Continue with propanolol Code status full. Disposition. Stool softener. Adjustment of pain medication to tramadol out of bed to chair. Continue with DVT prophylaxis upper endoscopy for evaluation of gastric pain and nausea and anemia. Time-Based Coding :: [TOTAL MINUTES] spent with patient and on the chart (including review of chart, obtaining history, exam, reviewing outside data, placing orders, documenting exam and treatment plan, and counseling patient) on [DATE]. PROFEE Charge codes Subsequent inpatient/observation care: [id number]
[2023-11-24] MEDS: CONJUGATED ESTROGENS 0.3 MG 0.3 EACH PO (12:46)
[2023-11-24] MEDS: PROPRANOLOL 60 MG 60 EACH PO (12:46)
[2023-11-24] MEDS: polyethylene glycoL 3350 17 GM POWD.PACK PO (12:47)
[2023-11-24] MEDS: cefTRIAXone 2,000 MG in SODIUM CHLORIDE 0.9% 100 ML 200 MG IV (12:50)
[2023-11-24] MEDS: LACTATED RINGERS 1,000 ML 42 ML IV (13:39)
--- NOTE | 2023-11-24 14:45 | PM.OP.EGD ---
Operative Date/Time/Diagnoses Date of procedure: 11/24/23 Time of procedure: 14:46 Pre-op diagnosis: Anemia Post-op diagnosis: same Procedure & Clinicians Study performed: Esophagogastroduodenoscopy Same procedure as scheduled: Yes Surgeon: Ethan Ruffin Procedure Notes Procedure in detail: Surgeon: Ethan Ruffin MD Anesthesia: Huma Conde CRNA A timeout was performed. A bite blocked was placed. The patient was positioned in the left lateral decubitus position. Anesthesia was administered. The endoscope was inserted through the bite block and passed through the esophagus and stomach and into the duodenum. The third portion of the duodenal mucosa appeared normal. There appeared to be a rather long ulcer in the second portion of the duodenal. There was no active bleeding. The base appeared necrotic. The scope was withdrawn into the duodenal bulb and no abnormalities were found. The scope was withdrawn into the stomach. Mild antritis was noted and random biopsies were taken with cold forceps. The rest of the stomach was normal. The scope was retroflexed and a small hiatal hernia was noted. The scope was withdrawn into the esophagus and no abnormalities were found. The remainder of the esophagus was normal. The scope was withdrawn. The patient was awakened and brought to recovery. Sedation time: See the anesthesia notes Findings: A rather long ulceration in the second portion of the duodenal necrotic base, mild antritis, small hiatal hernia Post-procedure Disposition: PACU
--- NOTE | 2023-11-24 15:24 | CM.DPC ---
DCP Cont. Reviewed EMR and team rounds for status updates. Pt was taken to the OR this afternoon for an EGD, results are pending. Will assist with any recommendations for d/c, however at this time it's home with family, no needs.
[2023-11-24] MEDS: PANTOPRAZOLE 40 MG VIAL IV ×2 (16:27→20:06)
[2023-11-25 06:35] LABS: Add Manual Diff / Slide Review NO; Basophils Absolute Auto 100 /uL (0-100); Eosinophils Absolute Auto 400 /uL (0-450); Eosinophils Percent Auto 6.4 % (2-4); Hematocrit 24.3 % (36-46); Hemoglobin 8.2 g/dL (12.0-16.0); Lymphocytes Absolute Auto 600 /uL (1100-4500); Lymphocytes Percent Auto 8.2 % (25-40); Mean Corpuscular HGB Conc 33.9 % (30-36); Mean Corpuscular Hemoglobin 32.8 PG (26-34); Mean Corpuscular Volume 96.8 fL (80-100); Monocytes Absolute Auto 700 /uL (0-900); Neutrophils Absolute Auto 5200 /uL (1500-7000); Neutrophils Percent Auto 74.4 % (50-75); Platelet Count 363 X10^3/uL (150-400); Red Blood Cell Count 2.51 X10^6/uL (4.0-5.2); Red Cell Distribution Width 14.2 % (11.6-14.8)
[2023-11-25 06:45] LABS: BUN Creatinine Ratio 10.3 (6-22); Blood Urea Nitrogen 15 mg/dL (7-17); Carbon Dioxide 19 mmol/L (22-32); Chloride 113 mmol/L (98-107); Estimated Glomerular Filt Rate 36 mL/min (>60); Glucose 88 mg/dL (80-110); HEMOLYSIS < 15 (0-50); Potassium 4.2 mmol/L (3.4-5.1); Sodium 136 mmol/L (137-145)
--- NOTE | 2023-11-25 06:53 | PM.PN.1 ---
Subjective Subjective Date Patient Seen: 11/25/23 Time Patient Seen: 11:20 Interval history: Patient seen and evaluated this morning. Patient states health is doing well. She had a good night last night. Cough is much improved with a cough suppressant. She says she is feeling better from the stomach standpoint not as much pain. Not as quite as nauseated as well. Still quite weak and tired. at bedside. No bowel movement yet. Tolerating diet. Vital signs have been stable. Laboratory tests were reviewed. Exam Vital Signs (past 8 hours): Oxygen Delivery Method Room Air Oxygen Flow Rate 99 Narrative Exam Narrative: Gen.: Alert good historian mild pallor HEENT: Pupils equal round and reactive or mucosa is moist Cardio: [S1-S2 regular rate and rhythm no murmurs appreciated.] Respiratory: Lungs are clear good respiratory effort no appreciable wheezes or crackles. Mild left-sided rib pain Abdomen: Soft nontender no rebound or guarding Extremities: Full range of motion no edema. Objective Labs 11/25/23 06:18 11/25/23 06:18 Labs: Laboratory Results - last 24 hr 11/24/23 11/25/23 06:24 06:18 WBC 7.9 7.0 RBC 2.55 L 2.51 L Hgb 8.2 L 8.2 L Hct 25.0 L 24.3 L MCV 98.1 96.8 MCH 32.3 32.8 MCHC 33.0 33.9 RDW 14.1 14.2 Plt Count 353 363 Neut % (Auto) 76.6 H 74.4 Lymph % (Auto) 7.5 L 8.2 L [place] % (Auto) 12.1 10.0 Eos % (Auto) 3.1 6.4 H Baso % (Auto) 0.7 1.0 Neut # (Auto) 6000 5200 Lymph # (Auto) 600 L 600 L [place] # (Auto) 1000 H 700 Eos # (Auto) 200 400 Baso # (Auto) 100 100 Sodium 135 L 136 L Potassium 4.1 4.2 Chloride 116 H 113 H Carbon Dioxide 18 L 19 L BUN 17 15 Creatinine 1.27 H 1.45 H Estimated GFR 43 L 36 L BUN/Creatinine Ratio 13.4 10.3 Glucose 87 88 Calcium 7.8 L 8.0 L Total Bilirubin 0.2 AST 26 ALT 15 Alkaline Phosphatase 61 Total Protein 5.0 L Albumin 2.4 L Globulin 2.6 Albumin/Globulin Ratio 0.9 L Lipase 159 PFSH Medical History Palpitations Osteoarthritis Intermittent small bowel obstruction due to adhesions Surgical History History of construction of external stoma of urinary system (~1988) Hx of bladder repair surgery History of bilateral tubal ligation Hx of breast biopsy Hx of appendectomy History of hysterectomy Hx of resection of small bowel History of total left hip replacement Status post hysterectomy Family History Father Hypertension Stroke Sister Age: 70 Pacemaker Heart disease Social History marital status: household members: spouse Smoking Status: Never smoker alcohol intake: current substance use type: does not use Assessment & Plan Assessment and plan (1) Duodenal ulcer: Status: Acute (2) Anemia: Qualifiers: Anemia type: unspecified type Qualified Code(s): D64.9 - Anemia, unspecified Status: Acute (3) Pneumonia: Qualifiers: Pneumonia type: due to unspecified organism Status: Acute (4) Acute hyponatremia: Status: Acute Plan Pneumonia community acquired. Patient with pneumonia. Patient on ceftriaxone and Zithromax. Anticipate discharge from the hospital tomorrow. Her cough is much improved oxygen levels stable she is afebrile white blood cell count is normal. She will be discharged home on oral Omnicef. And a cough suppressant. Duodenal ulcer ulcer found on endoscopic yesterday. Patient IV proton pump inhibitor. Gastric pain is improved this morning. She has tolerating a diet. Taking less pain medication. Patient is on Protonix and will be continued on Protonix 6 weeks after. Hopefully H pylori testing was done. Biopsies were taken from the stomach. Acute bood loss anemia. Patient with blood loss anemia plus delusional anemia. Hemoglobin is 8 today. No signs of active bleeding from gastrointestinal source based on patient's bowel movements. Will continue to monitor hemoglobin hematocrit. Hyponatremia. Low-sodium has been resolved. Acute kidney injury on chronic kidney disease. Patient with acute kidney injury. This is improved and resolved we will continue to monitor electrolytes. UTI with New Bladder patient's urinary culture grew Enterococcus which was sensitive to current antibiotics. She self caths twice a day at home. SVT. Patient on propranolol no signs of significant accelerated heart rate. Code status full. DVT prophylaxis. Patient's Lovenox was stopped due to gastrointestinal blood loss and stomach ulcer she will be encouraged to wear SCDs. Disposition and plan home tomorrow Time-Based Coding :: [TOTAL MINUTES] spent with patient and on the chart (including review of chart, obtaining history, exam, reviewing outside data, placing orders, documenting exam and treatment plan, and counseling patient) on [DATE]. PROFEE Charge codes Subsequent inpatient/observation care: [id number]
[2023-11-25 08:00] VITALS: BP 148/56; PULSE 72; RESP 16; TEMP 35.9; O2SAT 95
[2023-11-25] MEDS: TRAMADOL 50 MG TABLET PO ×2 (08:48→18:46)
[2023-11-25] MEDS: CONJUGATED ESTROGENS 0.3 MG 0.3 EACH PO (08:48)
[2023-11-25] MEDS: PROPRANOLOL 60 MG 60 EACH PO (08:48)
[2023-11-25] MEDS: polyethylene glycoL 3350 17 GM POWD.PACK PO (08:53)
[2023-11-25] MEDS: PANTOPRAZOLE 40 MG VIAL IV ×2 (08:53→21:04)
[2023-11-25] MEDS: AZITHROMYCIN 500 MG in DEXTROSE 5% IN WATER 250 ML 250 MG IV (08:56)
[2023-11-25] MEDS: GUAIFENESIN/DM 200/20 MG/10 ML UDC PO ×2 (09:25→22:09)
--- NOTE | 2023-11-25 11:50 | CM.DPC ---
DCP Cont. Reviewed EMR and team rounds for status updates. Per Dr. Barraza, pt will need 1-more night of IV ABO's and fluids, plan is to d/c home tomorrow. No anticipated CM needs at this time.
[2023-11-25] MEDS: cefTRIAXone 2,000 MG in SODIUM CHLORIDE 0.9% 100 ML 200 MG IV (12:56)
[2023-11-25 16:02] VITALS: O2SAT 96
[2023-11-25 19:50] VITALS: BP 158/53; PULSE 62; RESP 15; TEMP 36.6; O2SAT 100
[2023-11-26 07:00] VITALS: BP 140/59; PULSE 63; RESP 14; TEMP 35.7; O2SAT 96
[2023-11-26] MEDS: TRAMADOL 50 MG TABLET PO ×2 (07:00→20:48)
[2023-11-26] MEDS: GUAIFENESIN/DM 200/20 MG/10 ML UDC PO ×2 (08:59→20:45)
[2023-11-26] MEDS: LOPERAMIDE 2 MG CAPSULE PO ×2 (08:59→12:13)
[2023-11-26] MEDS: PANTOPRAZOLE 40 MG VIAL IV ×2 (08:59→20:45)
[2023-11-26] MEDS: PROPRANOLOL 60 MG 60 EACH PO (12:12)
--- NOTE | 2023-11-26 14:42 | P.PN_ITS ---
Subjective Subjective Date Patient Seen: 11/26/23 Time Patient Seen: 14:42 Interval history: Patient states he had a lung night last night. Woke up with multiple episodes of diarrhea. Although she is feeling better from a pain standpoint these tender epigastric stomach area still has some rib pain. Her coughing has decreased significantly. Patient thinks that her diuresis from her antibiotics she has says that she has a hard time with antibiotics and that causes multiple episodes of diarrhea. Apparently she has intermittent diarrhea for long time as well. Otherwise she says she is feeling better frayed to go home with explosive diarrhea Exam Vital Signs (past 8 hours): - 11/26/23 07:00 Temperature 96.2 F L Pulse Rate 63 Respiratory Rate 14 Blood Pressure 140/59 L Pulse Oximetry 96 Oxygen Flow Rate 0 Oxygen Delivery Method Room Air Oxygen Flow Rate 0 Narrative Exam Narrative: Gen.: Alert good historian HEENT: Pupils equal round and worn mucosa is moist Cardio: S1-S2 systolic murmur present Respiratory: Lungs are clear to auscultation normal respiratory effort left- sided rib pain Abdomen: Soft mild epigastric tenderness Extremities: Some trace edema warm dry and perfusing Objective Labs 11/25/23 06:18 11/25/23 06:18 PFSH Medical History Palpitations Osteoarthritis Intermittent small bowel obstruction due to adhesions Surgical History History of construction of external stoma of urinary system (~1988) Hx of bladder repair surgery History of bilateral tubal ligation Hx of breast biopsy Hx of appendectomy History of hysterectomy Hx of resection of small bowel History of total left hip replacement Status post hysterectomy Family History Father Hypertension Stroke Sister Age: 70 Pacemaker Heart disease Social History marital status: household members: spouse Smoking Status: Never smoker alcohol intake: current substance use type: does not use Assessment & Plan Assessment and plan (1) Duodenal ulcer: Status: Acute (2) Anemia: Qualifiers: Anemia type: unspecified type Qualified Code(s): D64.9 - Anemia, unspecified Status: Acute (3) Pneumonia: Qualifiers: Pneumonia type: due to unspecified organism Status: Acute Plan Pneumonia community acquired. Patient doing well afebrile off IV antibiotics. Mainly due to thinking that she is having a reaction to her antibiotics. White blood cell count was stable. She has not hypoxic. Duodenal ulcer ulcer found on endoscopic. Continue with IV proton pump inhibitor twice a day will be continued at home. Diet as tolerated. Acute bood loss anemia. Stable no signs of active bleeding Acute diarrhea patient is antibiotics were stopped today. Imodium as needed. Certainly will hold and stop her MiraLax. Patient will need 1 more day in the hospital because of this Hyponatremia. Low-sodium has been resolved. Acute kidney injury on chronic kidney disease. Patient with acute kidney injury. Improved and stable UTI with New Bladder patient's urinary culture grew Enterococcus which was sensitive to current antibiotics. She self caths twice a day at home. SVT. Patient on propranolol no signs of significant accelerated heart rate. Code status full. DVT prophylaxis. SCDs Disposition and plan. One more day in the hospital due to diarrhea. Doubt C diff possibly antibiotic related due to intolerance. These were stopped patient out of bed to chair and discharged home.. Disposition and plan home tomorrow Time-Based Coding :: [TOTAL MINUTES] spent with patient and on the chart (including review of chart, obtaining history, exam, reviewing outside data, placing orders, documenting exam and treatment plan, and counseling patient) on [DATE]. PROFEE Charge codes Subsequent inpatient/observation care: [id number]
[2023-11-26 15:55] LABS: Clostridium Difficile Tox PCR Negative for C. diff (Negative)
[2023-11-26 16:00] VITALS: O2SAT 96
[2023-11-26 20:16] VITALS: BP 133/46; PULSE 76; RESP 17; TEMP 34.9; O2SAT 82
[2023-11-27 08:00] VITALS: BP 132/76; PULSE 86; RESP 18; TEMP 36.6; O2SAT 95
[2023-11-27] MEDS: PROPRANOLOL 60 MG 60 EACH PO (08:27)
[2023-11-27] MEDS: PANTOPRAZOLE 40 MG VIAL IV (08:27)
[2023-11-27] MEDS: LOPERAMIDE 2 MG CAPSULE PO (09:23)
--- NOTE | 2023-11-27 09:27 | DIET.CONS ---
Dietary Consultation Note Admission Date: 11/22/2023 14:01 Assessment: 78 y F presented with hip and back pain. Found to have duodenal ulcer. Nutrition consulted for weight loss and difficulty eating r/t diarrhea. Met w/ pt at bedside. Avg recorded PO intakes <50% in 5 days. Reports improved appetite now, but previous sporadic intakes since October 19. Has ONS at home. Ht: 160.02 cm Wt: 67.5 kg BMI: 26.3 UBW: 70.45 kg mid-October per pt (4% weight loss in 1.5 months, non-severe) Last BM: 11/26/23 (11/26/23 20:42) MNA: 14 Ranjit Score: 20 Diet: 11/24/23 Dinner Regular [General (Regular) Diet] Diet Modifications: Food Texture: Level 7 - Regular Liquid Consistency: Level 0 - Thin Nutrition Percent Meal Consumed 50% 11/26/23 13:00 Percent Meal Consumed 0% 11/26/23 12:17 Percent Meal Consumed 25% 11/26/23 10:00 Percent Meal Consumed 75% 11/25/23 18:26 Labs: RBC 2.51 X10^6/uL (4.0-5.2) L 11/25/23 06:18 Hgb 8.2 g/dL (12.0-16.0) L 11/25/23 06:18 Hct 24.3 % (36-46) L 11/25/23 06:18 Creatinine 1.45 mg/dL (0.52-1.04) H 11/25/23 06:18 Lactate 0.7 mmol/L (0.7-2.1) 11/22/23 10:33 Nutrition Diagnosis: Inadequate oral intake r/t alterations in GI tract aeb <50% recorded po intakes in 5 days Interventions: 1. ONS upon d/c for po intakes <75%, consistent meals/snacks, small freq meals as needed 2. Reviewed best tolerated foods and protein sources for sufficient intake Monitoring/Evaluations: f/u PRN, pt to d/c today Electronically Signed by: Maye Artis 11/27/23 09:27 Clinical Dietitian [address] [id number]
--- NOTE | 2023-11-27 09:40 | PM.DS.1 ---
History of Present Illness History of Present Illness Chief complaint: HIP AND BACK PAIN Discharge Providers Provider Date of admission: 11/22/23 14:01 Discharge Date: 11/27/23 Primary care physician: Jose Juan Barraza MD Consults: 11/24/23 09:53 Consult to General Surgery Routine Comment: Consulting Provider: Ethan Ruffin Reason for consultation: epigastric pain Has provider been notified: Yes 11/26/23 12:19 Consult to Dietitian, Adult Routine Comment: eat d/t diarrhea Reason For Exam: Low albumin, pt states losing weight and afraid to Discharge provider: Jose Juan Barraza MD Summary Hospital Course Discharge Diagnosis: Pneumonia community acquired. Duodenal ulcer acute Acute blood loss anemia due to duodenal ulcer Acute Kidney Injury Acute hyponatremia UTI with enterococus SVT history New bladder History Acute diarrhea Hospital Course: Patient admitted to the hospital with coughing shortness for breath weakness abdominal pain and discomfort. Patient had recent travel to [place] and recent Pyle dislocation of her hip and was hospitalized in [place] 1 month ago. She has not been feeling well since then has had increasing cough. She been again to then have right-sided back pain and discomfort then epigastric pain and discomfort. It became so bad she presented to the emergency department. Patient had workup in the emergency room including laboratory testing chest x-ray and was admitted to the hospital with hyponatremia flank pain elevated white blood cell count nausea dehydration acute kidney injury. During her hospital stay she had further workup and evaluation. She was started on IV antibiotic urine culture was done which grew out Enterococcus. CT in of her abdomen and pelvis was done which showed initially no significant acute findings but did show infiltrates or atelectasis in her lower lungs. Patient and with the CT scan of her chest. Which showed possible infiltrate pneumonia. Patient was placed on appropriate antibiotic therapy for this. Over the ensuing days patient's white blood cell count improved hyponatremia improved and acute kidney injury improved. Patient still had increasing abdominal pain and discomfort. Incidental note was made of fractures of her ribs this was due to what patient thought was coughing. Because of her ongoing abdominal pain and discomfort and gradual trending down of her hemoglobin hematocrit there was concern for a stomach ulcer patient had an upper endoscopy which confirmed a duodenal ulcer. Patient was started on high-dose proton pump inhibitor. Over the ensuing days. Patient continued to improve she had improvement of her abdominal plain after starting on a proton pump inhibitor her hemoglobin hematocrit stabilized her blood pressure stabilized. Patient had 1 day of acute diarrhea which she presumed was due to the IV antibiotics as she says she does not tolerate antibiotics well. The time of discharge her vital signs were stable she was ambulating she was eating. Her pain was well controlled as well as her cough she was discharged home on her home medication proton pump inhibitor 40 mg daily and a cough suppressant and she will follow up on Thursday Exam Vital Signs (past 8 hours): - 11/27/23 08:00 Temperature 97.8 F Pulse Rate 86 Respiratory Rate 18 Blood Pressure 132/76 Pulse Oximetry 95 Oxygen Delivery Method Room Air Oxygen Flow Rate 0 Objective Labs 11/25/23 06:18 11/25/23 06:18 Labs: Laboratory Results - last 24 hr 11/26/23 13:25 C. difficile Tox (PCR) Negative for c. diff [facility] Medical History Palpitations Osteoarthritis Intermittent small bowel obstruction due to adhesions Surgical History History of construction of external stoma of urinary system (~1988) Hx of bladder repair surgery History of bilateral tubal ligation Hx of breast biopsy Hx of appendectomy History of hysterectomy Hx of resection of small bowel History of total left hip replacement Status post hysterectomy Family History Father Hypertension Stroke Sister Age: 70 Pacemaker Heart disease Social History marital status: household members: spouse Smoking Status: Never smoker alcohol intake: current substance use type: does not use Discharge Plan Discharge Plan Patient Disposition: Home Provider Discharge Comment: f/u Dr Barraza next Thursday Discharge orders & Medications Prescriptions: New dextromethorphan-guaifenesin [Robafen DM Cough] 10-100 mg/5 mL Liquid 10 ml PO Q6HR PRN (Reason: Cough) Qty: 250 0RF pantoprazole [Protonix] 40 mg tablet,delayed release (DR/EC) 40 mg PO DAILY Qty: 60 0RF Continued nitrofurantoin macrocrystal 50 mg capsule 50 mg PO BEDTIME Rx Instructions: must administer with a meal/food ascorbic acid (vitamin C) 500 MG tablet 500 mg PO DAILY Qty: 0 cholecalciferol (vitamin D3) [Vitamin D3] 50 mcg (2,000 unit) capsule 2,000 unit PO DAILY Qty: 0 multivitamin [Multiple Vitamins] Tablet 1 tab PO DAILY calcium citrate-vitamin D3 250 mg-5 mcg (200 unit) tablet 2 tab PO DAILY apple cider vinegar 500 mg tablet 500 mg PO DAILY mecobalamin (vitamin B12) 2,500 mcg tablet,chewable 2,500 mcg PO DAILY biotin 5,000 mcg tablet, sublingual 5,000 mcg sublingual DAILY lutein-zeaxanthin 20 mg- 1,000 mcg capsule 1 cap PO DAILY coQ10 (ubiquinol) [CoQmax Ubiquinol] 100 mg capsule 100 mg PO DAILY Patient Comments: liquid form propranolol 60 mg capsule,extended release 24 hr 60 mg PO DAILY Qty: 90 3RF Premarin 0.3 mg tablet 0.3 mg PO DAILY Disabled Parking Permit See Rx Instructions .ROUTE .COMPLEX Qty: 1 0RF Rx Instructions: I find this patient to be medically disabled and qualified for Disabled Parking as indicated, and signed, on the accompanying Disabled Parking Application for Individuals ; (DME) [employer] MDI Spacer Spacer See Rx Instructions .Route Qty: 1 0RF Rx Instructions: As directed Follow up/Referrals: Jose Juan Barraza MD [Primary Care Provider] - Visit Report/Discharge Packet Stand Alone Forms: Patient Portal/API, Stroke Signs & Symptoms Discharge Data Primary Care Provider: Jose Juan Barraza
--- NOTE | 2023-11-27 11:01 | CM.DPC ---
DCP Continued Reviewed EMR and team rounds for pt?s medical status. No new discharge needs identified at this time. Plan: Discharge orders in, patient to dc home with spouse to transport. CM Team will continue to follow for coordination of discharge plans. CAMILA Lynn
== END 2023-11-27 10:55 | disposition home or self-care (01) | DRG 640 ==
LOC: ED 12:15 → AC 14:02
PROVIDERS: Surgery; Admitting Provider Family Medicine; Emergency Provider Emergency Medicine; PCP Family Medicine; Referring Provider Emergency Medicine; Visit Provider Family Medicine
PROC: 0DJ08ZZ Inspection of Upper Intestinal Tract, Via Natural or Artificial Opening Endoscopic (ICD-10-PCS; principal; 2023-11-24 14:30)
DX: E87.1 Hypo-osmolality and hyponatremia (principal); J18.9 Pneumonia, unspecified organism; K26.0 Acute duodenal ulcer with hemorrhage; N17.9 Acute kidney failure, unspecified; N39.0 Urinary tract infection, site not specified; I47.10 Supraventricular tachycardia, unspecified; I96 Gangrene, not elsewhere classified; D62 Acute posthemorrhagic anemia; E86.0 Dehydration; N18.9 Chronic kidney disease, unspecified; D63.1 Anemia in chronic kidney disease; K29.50 Unspecified chronic gastritis without bleeding; B95.2 Enterococcus as the cause of diseases classified elsewhere; R19.7 Diarrhea, unspecified
CPT/HCPCS: 36415; 43239; 71260; 74177; 80048; 80053; 81001; 81003; 83605; 83690; 84145; 85025; 87040; 87077; 87086; 87186; 87493; 96365; 96375; 99232; 99233; 99238; 99284; J0696; J1170; J1650; J1885; J2270; J2470; J2704; Q9967

== ENCOUNTER → 2023-12-03 13:49 | Outpatient (CLI) | payer MEDICARE, BC, SELFPAY ==
[2023-11-23 13:02] VITALS: BMI 26.3
[2023-12-03 15:26] LABS: Hematocrit 30.9 % (36-46); Hemoglobin 10.2 g/dL (12.0-16.0); Mean Corpuscular HGB Conc 33.1 % (30-36); Mean Corpuscular Hemoglobin 32.7 PG (26-34); Mean Corpuscular Volume 98.6 fL (80-100); Platelet Count 454 X10^3/uL (150-400); Red Blood Cell Count 3.14 X10^6/uL (4.0-5.2); Red Cell Distribution Width 14.6 % (11.6-14.8); White Blood Cell Count 7.2 X10^3/uL (4.5-11.0)
[2023-12-03 15:55] LABS: HEMOLYSIS 46 (0-50); Iron 67 ug/dL (37-170)
[2023-12-03 16:02] LABS: Alanine Aminotransferase 16 IU/L (<35); Albumin 3.7 g/dL (3.5-5.0); Albumin Globulin Ratio 1.5 (1.0-2.8); Alkaline Phosphatase 70 U/L (38-126); Aspartate Aminotransferase 25 IU/L (14-36); BUN Creatinine Ratio 11.4 (6-22); Bilirubin Total 0.5 mg/dL (0.2-1.3); Blood Urea Nitrogen 20 mg/dL (7-17); Calcium 9.2 mg/dL (8.4-10.2); Carbon Dioxide 21 mmol/L (22-32); Chloride 106 mmol/L (98-107); Estimated Glomerular Filt Rate 29 mL/min (>60); Globulin 2.5 g/dL (1.7-4.1); Glucose 113 mg/dL (80-110); HEMOLYSIS < 15 (0-50); Potassium 5.2 mmol/L (3.4-5.1); Sodium 135 mmol/L (137-145); Total Protein 6.2 g/dL (6.3-8.2)
[2023-12-03 16:06] LABS: Percent Iron Saturation 25 % (15-50); Total Iron Binding Capacity 273 ug/dL (265-497); Transferrin 228 mg/dL (206-381)
[2023-12-03 16:28] LABS: TSH w/ Reflex to FT4 5.81 uIU/mL (0.47-4.68)
[2023-12-03 16:31] LABS: Ferritin 81 ng/mL (11-264)
[2023-12-03 16:54] LABS: Free T4, Direct Thyroxine 1.34 ng/dL (0.78-2.19)
[2023-12-03 19:07] LABS: Neutrophils Absolute Manual 5184 /uL (3000-5900); Total Cells Counted 100
[2023-12-03 19:08] LABS: Macrocytosis 1+
== END ==
PROVIDERS: PCP Family Medicine; Referring Provider Family Medicine; Visit Provider Family Medicine
DX: N18.30 Chronic kidney disease, stage 3 unspecified; E05.90 Thyrotoxicosis, unspecified without thyrotoxic crisis or storm
CPT/HCPCS: 36415; 80053; 82728; 83540; 83550; 84439; 84443; 85025

== ENCOUNTER → 2023-12-31 13:54 | Outpatient (CLI) | payer MEDICARE, BC, SELFPAY ==
[2023-12-31 14:36] LABS: Hematocrit 35.7 % (36-46); Hemoglobin 11.8 g/dL (12.0-16.0); Mean Corpuscular Hemoglobin 32.4 PG (26-34); Mean Corpuscular Volume 98.1 fL (80-100); Platelet Count 318 X10^3/uL (150-400); Red Blood Cell Count 3.64 X10^6/uL (4.0-5.2); Red Cell Distribution Width 14.5 % (11.6-14.8); White Blood Cell Count 9.6 X10^3/uL (4.5-11.0)
[2023-12-31 15:39] LABS: Ferritin 4 ng/mL (11-264)
== END ==
PROVIDERS: PCP Family Medicine; Referring Provider Family Medicine; Visit Provider Family Medicine
DX: K26.9 Duodenal ulcer, unspecified as acute or chronic, without hemorrhage or perforation (principal); D64.9 Anemia, unspecified
CPT/HCPCS: 82728; 85027

== ENCOUNTER 2024-02-07 12:48 | Emergency (ER) | payer MEDICARE, BC, SELFPAY ==
[2024-02-07 13:03] VITALS: BP 141/66; PULSE 74; RESP 18; TEMP 36.1; O2SAT 98; BMI 26.4
--- NOTE | 2024-02-07 14:40 | PC.NURSE ---
Left jaw pain that radiates to her head. Pt denies CP, back pain, or other body aches. Pt states pain started within a couple hours of receiving iron transfusion. Pt states she was dx with anemia. GCS 15. Respirations regular and unlabored.
--- NOTE | 2024-02-07 15:11 | DI.RAD.S_ITS ---
PROCEDURE: XR CHEST 2V INDICATIONS: Hypertension TECHNIQUE: 2 views of the chest were acquired. COMPARISON: [facility], CR, XR CHEST 2V, 11/18/2023, 14:45. FINDINGS: Surgical changes and devices: None. Lungs and pleura: Lungs are clear. No pleural effusions or pneumothorax. Mediastinum: Mediastinal contours are normal. Heart size is normal. Bones and chest wall: No suspicious bony abnormalities. Soft tissues appear unremarkable. IMPRESSION: No acute cardiopulmonary abnormality is seen. Approved by: Jose Kat M.D. on 02/07/2024 at 15:13
--- NOTE | 2024-02-07 15:28 | EKG_ITS ---
[place] [id number] [place] [id number] Test Date: 2024-02-07 Pat Name: Ana Luisa Garnica Department: [facility] Room: Gender: Female [employer]: [employer] : 1945 Requested By: Order Number: [id number] Reading MD: Jose Rafael Foy MD Measurements Intervals Essie Rate: 130 P: 59 IA: 166 QRS: -40 QRSD: 60 T: 49 QT: 220 QTc: 323 Interpretive Statements Sinus tachycardia with frequent premature ventricular complexes in a pattern of bigeminy Left axis deviation Low voltage QRS Inferior infarct , age undetermined Cannot rule out Anterior infarct , age undetermined NO PRIOR TRACING Electronically Signed On 02-08-2024 7:58:40 PDT by Jose Rafael Foy MD
[2024-02-07 15:41] LABS: Add Manual Diff / Slide Review NO; Basophils Absolute Auto 0 /uL (0-100); Basophils Percent Auto 0.4 % (0-2); Eosinophils Absolute Auto 400 /uL (0-450); Eosinophils Percent Auto 5.2 % (2-4); Hematocrit 36.9 % (36-46); Hemoglobin 12.4 g/dL (12.0-16.0); Lymphocytes Absolute Auto 700 /uL (1100-4500); Lymphocytes Percent Auto 9.7 % (25-40); Mean Corpuscular HGB Conc 33.7 % (30-36); Mean Corpuscular Hemoglobin 32.2 PG (26-34); Mean Corpuscular Volume 95.7 fL (80-100); Monocytes Absolute Auto 700 /uL (0-900); Monocytes Percent Auto 8.9 % (3-14); Neutrophils Absolute Auto 5700 /uL (1500-7000); Neutrophils Percent Auto 75.8 % (50-75); Platelet Count 236 X10^3/uL (150-400); Red Blood Cell Count 3.85 X10^6/uL (4.0-5.2); Red Cell Distribution Width 15.1 % (11.6-14.8); White Blood Cell Count 7.6 X10^3/uL (4.5-11.0)
--- NOTE | 2024-02-07 15:51 | EKG_ITS ---
[address] [address] Test Date: 2024-02-07 Pat Name: Ana Luisa Garnica Department: [facility] Room: Gender: Female [employer]ice [employer]ter: MARISA : 1945 Requested By: Order Number: [id number] Reading MD: Jose Rafael Foy MD Measurements Intervals [place] Rate: 59 P: 62 RI: 170 QRS: -31 QRSD: 56 T: 8 QT: 414 QTc: 409 Interpretive Statements Sinus bradycardia Left axis deviation Inferior infarct , age undetermined Anterolateral infarct , age undetermined Electronically Signed On 02-08-2024 7:58:43 PDT by Jose Rafael Foy MD
[2024-02-07 15:53] LABS: Alanine Aminotransferase 33 IU/L (<35); Albumin 4.4 g/dL (3.5-5.0); Albumin Globulin Ratio 1.5 (1.0-2.8); Alkaline Phosphatase 83 U/L (38-126); Aspartate Aminotransferase 43 IU/L (14-36); BUN Creatinine Ratio 24.3 (6-22); Bilirubin Total 0.5 mg/dL (0.2-1.3); Blood Urea Nitrogen 34 mg/dL (7-17); Calcium 9.9 mg/dL (8.4-10.2); Carbon Dioxide 21 mmol/L (22-32); Chloride 106 mmol/L (98-107); Estimated Glomerular Filt Rate 38 mL/min (>60); Globulin 2.9 g/dL (1.7-4.1); Glucose 108 mg/dL (80-110); HEMOLYSIS 24 (0-50); Potassium 4.7 mmol/L (3.4-5.1); Sodium 135 mmol/L (137-145); Total Protein 7.3 g/dL (6.3-8.2)
[2024-02-07 16:05] LABS: NT-proBNP (BNP-Adult 18+) 334 pg/mL (<450); Troponin I < 0.012 ng/mL (0.01-0.034)
--- NOTE | 2024-02-07 16:40 | ED_ITS ---
HPI - Dental/Oral <Bertin Hudson PA-C - Last Filed: 02/07/24 16:53> General Chief complaint: Dental/Oral Stated complaint: reaction to iron infusion Time Seen by Provider: 02/07/24 15:11 Source: patient Mode of arrival: Family Vehicle History of Present Illness HPI Narrative: This patient is an 78-year-old female that presents today for left-sided facial pain that started approximately 4 hours after her 2nd iron transfusion. She states it came on suddenly and felt like a bolt of lightning and searing pain. She has seen her dentist in which she states that she has no dental anomalies. The patient was prescribed tramadol 25 mg which provided 3-4 hours of relief but the pain returned. She denies neck pain, night sweats, fever, chills, chest pain or shortness of breath. Patient also denies dysphagia, blurred vision, headache, otalgia or decreased hearing. Patient has been experiencing pain for approximately 1 week. Related Data Home Medications Medication Instructions Recorded Confirmed ascorbic acid (vitamin C) 500 mg 500 mg PO DAILY ##0 02/24/12 01/11/24 tablet biotin 5,000 mcg sublingual tablet 5,000 mcg sublingual DAILY 07/22/22 01/11/24 calcium citrate 250 mg 2 tab PO DAILY 07/22/22 01/11/24 calcium-vitamin D3 5 mcg (200 unit) tablet cholecalciferol (vitamin D3) 50 2,000 unit PO DAILY #0 caps 07/22/22 01/11/24 mcg (2,000 unit) capsule (Vitamin D3) coQ10 (ubiquinol) 100 mg capsule 100 mg PO DAILY 07/22/22 01/11/24 (CoQmax Ubiquinol) lutein 20 mg-zeaxanthin 1,000 mcg 1 cap PO DAILY 07/22/22 01/11/24 capsule mecobalamin (vitamin B12) 2,500 2,500 mcg PO DAILY 07/22/22 01/11/24 mcg chewable tablet multivitamin (Multiple Vitamins 1 tab PO DAILY 07/22/22 01/11/24 tablet) nitrofurantoin macrocrystal 50 mg 50 mg PO BEDTIME 08/11/22 01/11/24 capsule conjugated estrogens 0.3 mg tablet 0.3 mg PO DAILY 08/13/23 01/11/24 (Premarin) Previous Rx's Medication Instructions Recorded Disabled Parking Permit See Rx Instructions .Route 11/11/23 .COMPLEX #1 ea inhalational spacing device #1 ea 11/11/23 (B[employer] MDI Spacer) pantoprazole 40 mg tablet,delayed 40 mg PO DAILY #60 tabs 11/25/23 release (Protonix) propranolol 60 mg capsule,24 60 mg PO DAILY #90 caps 11/26/23 hr,extended release tramadol 50 mg tablet 25 mg (1/2 x 50 mg) PO BID PRN 02/05/24 pain #5 tabs gabapentin 300 mg capsule 300 mg PO TID #20 caps 02/07/24 tramadol 50 mg tablet 50 mg PO Q8H PRN pain #20 tabs 02/07/24 Allergies Allergy/AdvReac Type Severity Reaction Status Date / Time levofloxacin [From Levaquin] Allergy Severe Tendonitis Verified 01/11/24 09:46 ofloxacin Allergy Severe TENDONITIS Verified 01/11/24 09:46 Sulfa (Sulfonamide Allergy Mild hives Verified 01/11/24 09:46 Antibiotics) Review of Systems <Bertin Hudson PA-C - Last Filed: 02/07/24 16:53> Review of Systems Narrative: General: See HPI Neuro: See HPI All other review of systems have been reviewed and are ultimately negative unless otherwise stated in the HPI. Patient History <Bertin Hudson PA-C - Last Filed: 02/07/24 16:53> Medical History Palpitations Osteoarthritis Intermittent small bowel obstruction due to adhesions Surgical History History of construction of external stoma of urinary system (~1988) Hx of bladder repair surgery History of bilateral tubal ligation Hx of breast biopsy Hx of appendectomy History of hysterectomy Hx of resection of small bowel History of total left hip replacement Status post hysterectomy Family History Father Hypertension Stroke Sister Age: 70 Pacemaker Heart disease Social History marital status: household members: spouse Smoking Status: Never smoker alcohol intake: current substance use type: does not use Smoking Status: Never smoker alcohol intake frequency: holidays/special occasions only Substance Use Type: does not use Exam <TIKI Granger Last Filed: 02/07/24 16:53> Initial Vital Signs Initial Vital Signs: Vital Signs Temperature 97 F L 02/07/24 13:03 Pulse Rate 74 02/07/24 13:03 Respiratory Rate 18 02/07/24 13:03 Blood Pressure 141/66 H 02/07/24 13:03 Pulse Oximetry 98 02/07/24 13:03 Oxygen Delivery Method Room Air 02/07/24 13:03 Const General: cooperative, healthy appearing, comfortable, well developed and well groomed HENMT Head: normal to inspection, normocephalic and atraumatic Ears: hearing grossly normal bilaterally, external ears normal and TM's normal bilaterally Nose: external nose normal and nares normal Face and sinus: normal facial exam, sinuses nontender and face symmetric Mouth: oral mucosae normal Teeth and gingiva: dentition normal and gingiva normal Throat: posterior oropharynx normal and tonsils normal Eyes General: Yes appearance normal, both eyes and all related structures Neck Neck: normal visual inspection, full ROM and no meningeal signs Resp Effort & Inspection: normal respiratory effort Auscultation: clear to auscultation bilaterally Cardio Rate: regular rate Rhythm: regular rhythm Heart Sounds: S1 normal and S2 normal Back/Spine/Pelvis Back: normal to inspection Skin General: no rashes or lesions noted, elasticity normal and turgor normal Neuro General: patient alert, patient awake and patient oriented x3 Extrem General: normal to inspection, full ROM and capillary refill normal Psych Appearance: grossly normal and well kempt <Lala Neal DO - Last Filed: 02/08/24 07:58> Initial Vital Signs Initial Vital Signs: Vital Signs Temperature 97 F L 02/07/24 13:03 Pulse Rate 74 02/07/24 13:03 Respiratory Rate 18 02/07/24 13:03 Blood Pressure 141/66 H 02/07/24 13:03 Pulse Oximetry 98 02/07/24 13:03 Oxygen Delivery Method Room Air 02/07/24 13:03 Course <TIKI Granger Last Filed: 02/07/24 16:53> Course Course Narrative: Patient was seen and examined. Labs were ordered including a 12 lead EKG and two-view chest x-ray. The patient's PCP requested the patient undergo a cardiac workup. After additional questioning, the patient was informed that she is likely showing signs and symptoms of trigeminal neuralgia. Her cardiac workup was unremarkable. The patient understands the treatment plan. There were no additional questions at the time of discharge and she will follow up as requested. And she was prepped for discharge home. Orders Ordered: ED Orders 02/07/24 15:11 Chest [XR chest 2V] Stat EKG-12 Lead Stat 02/07/24 15:32 BNP [NT-proBNP (BNP-Adult 18+)] Stat CBC Auto Diff [Complete Blood Count AUTO DIFF] Stat CMP [Comprehensive Metabolic Panel] Stat Troponin I Stat 02/07/24 15:45 EKG-12 Lead Stat Vital Signs Vital signs: Vital Signs - 8 hr 02/07/24 13:03 Temperature 97 F L Pulse Rate 74 Respiratory Rate 18 Blood Pressure 141/66 H Pulse Oximetry 98 Oxygen Delivery Method Room Air <Lala Neal DO - Last Filed: 02/08/24 07:58> Orders Ordered: ED Orders 02/07/24 15:11 Chest [XR chest 2V] Stat EKG-12 Lead Stat 02/07/24 15:32 BNP [NT-proBNP (BNP-Adult 18+)] Stat CBC Auto Diff [Complete Blood Count AUTO DIFF] Stat CMP [Comprehensive Metabolic Panel] Stat Troponin I Stat 02/07/24 15:45 EKG-12 Lead Stat Vital Signs Vital signs: Vital Signs - 8 hr 02/07/24 13:03 Temperature 97 F L Pulse Rate 74 Respiratory Rate 18 Blood Pressure 141/66 H Pulse Oximetry 98 Oxygen Delivery Method Room Air MDM - Dental/Oral <Bertin Hudson PA-C - Last Filed: 02/07/24 16:53> Differential Diagnosis Differential diagnosis: Likely dental caries, toothache, dental abscess, fracture of tooth and other (Trigeminal neuralgia, STEMI, NSTEMI) Medical Records Attestation: I reviewed the patient's medical records. Lab Data Attestation: I reviewed the patient's lab results. 02/07/24 15:32 02/07/24 15:32 Labs: Lab Results 02/07/24 Range/Units 15:32 WBC 7.6 (4.5-11.0) X10^3/uL RBC 3.85 L (4.0-5.2) X10^6/uL Hgb 12.4 (12.0-16.0) g/dL Hct 36.9 (36-46) % MCV 95.7 (80-100) fL MCH 32.2 (26-34) PG MCHC 33.7 (30-36) % RDW 15.1 H (11.6-14.8) % Plt Count 236 (150-400) X10^3/uL Neut % (Auto) 75.8 H (50-75) % Lymph % (Auto) 9.7 L (25-40) % [place] % (Auto) 8.9 (3-14) % Eos % (Auto) 5.2 H (2-4) % Baso % (Auto) 0.4 (0-2) % Neut # (Auto) 5700 (6807-1511) /uL Lymph # (Auto) 700 L (5441-7772) /uL [place] # (Auto) 700 (0-900) /uL Eos # (Auto) 400 (0-450) /uL Baso # (Auto) 0 (0-100) /uL Sodium 135 L (137-145) mmol/L Potassium 4.7 (3.4-5.1) mmol/L Chloride 106 (98-107) mmol/L Carbon Dioxide 21 L (22-32) mmol/L BUN 34 H (7-17) mg/dL Creatinine 1.40 H (0.52-1.04) mg/dL Estimated GFR 38 L (>60) mL/min BUN/Creatinine Ratio 24.3 H (6-22) Glucose 108 (80-110) mg/dL Calcium 9.9 (8.4-10.2) mg/dL Total Bilirubin 0.5 (0.2-1.3) mg/dL AST 43 H (14-36) IU/L ALT 33 (<35) IU/L Alkaline Phosphatase 83 (38-126) U/L Troponin I < 0.012 (0.01-0.034) ng/mL NT-Pro-B Natriuret Pep 334 (<450) pg/mL Total Protein 7.3 (6.3-8.2) g/dL Albumin 4.4 (3.5-5.0) g/dL Globulin 2.9 (1.7-4.1) g/dL Albumin/Globulin Ratio 1.5 (1.0-2.8) Imaging Data Chest x-ray: Radiologist's Impression: No acute process according to the radiologist ECG Data Interpretation: 12-lead EKG performed on 02/07/2024 at 3:28 p.m. initially stated that the ventricular rate was 130 beats per minute however, on physical exam, the rate noted at the radius was noted to be 60 beats per minute. There was no ST, T- wave elevation, depression or ectopy noted per my interpretation. Second and repeat 12-Lead EKG on the same date at 3:51 p.m. reveals normal sinus rhythm with a ventricular rate of 60 beats per minute. No ST, T-wave elevation, depression or ectopy noted per my interpretation. [facility] Narrative Medical decision making narrative: At this time, I believe the patient is experiencing signs and symptoms of trigeminal neuralgia. She has been receiving multiple iron infusions in which this has likely compression of the nerves and causing issues with her trigeminal nerve as well as neuralgia related symptoms. I will start the patient on gabapentin as well as tramadol since tramadol has worked in the recent past. The patient has a normal EKG and normal cardiac workup. I do not believe this is a STEMI or non-STEMI presentation. The patient was very about hyperphosphatemia however, her alk-phos is within normal limits. Her H&H has also stabilized. She appears clinically stable for outpatient follow up. There were no additional questions at the time of discharge and she will follow up as requested. <Lala Neal, - Last Filed: 02/08/24 07:58> Lab Data Labs: Lab Results 02/07/24 Range/Units 15:32 WBC 7.6 (4.5-11.0) X10^3/uL RBC 3.85 L (4.0-5.2) X10^6/uL Hgb 12.4 (12.0-16.0) g/dL Hct 36.9 (36-46) % MCV 95.7 (80-100) fL MCH 32.2 (26-34) PG MCHC 33.7 (30-36) % RDW 15.1 H (11.6-14.8) % Plt Count 236 (150-400) X10^3/uL Neut % (Auto) 75.8 H (50-75) % Lymph % (Auto) 9.7 L (25-40) % [place] % (Auto) 8.9 (3-14) % Eos % (Auto) 5.2 H (2-4) % Baso % (Auto) 0.4 (0-2) % Neut # (Auto) 5700 (3547-7229) /uL Lymph # (Auto) 700 L (3733-7212) /uL [place] # (Auto) 700 (0-900) /uL Eos # (Auto) 400 (0-450) /uL Baso # (Auto) 0 (0-100) /uL Sodium 135 L (137-145) mmol/L Potassium 4.7 (3.4-5.1) mmol/L Chloride 106 (98-107) mmol/L Carbon Dioxide 21 L (22-32) mmol/L BUN 34 H (7-17) mg/dL Creatinine 1.40 H (0.52-1.04) mg/dL Estimated GFR 38 L (>60) mL/min BUN/Creatinine Ratio 24.3 H (6-22) Glucose 108 (80-110) mg/dL Calcium 9.9 (8.4-10.2) mg/dL Total Bilirubin 0.5 (0.2-1.3) mg/dL AST 43 H (14-36) IU/L ALT 33 (<35) IU/L Alkaline Phosphatase 83 (38-126) U/L Troponin I < 0.012 (0.01-0.034) ng/mL NT-Pro-B Natriuret Pep 334 (<450) pg/mL Total Protein 7.3 (6.3-8.2) g/dL Albumin 4.4 (3.5-5.0) g/dL Globulin 2.9 (1.7-4.1) g/dL Albumin/Globulin Ratio 1.5 (1.0-2.8) ECG Data Interpretation: 12-lead EKG performed on 02/07/2024 at 3:28 p.m. initially stated that the ventricular rate was 130 beats per minute however, on physical exam, the rate noted at the radius was noted to be 60 beats per minute. There was no ST, T- wave elevation, depression or ectopy noted per my interpretation. Second and repeat 12-Lead EKG on the same date at 3:51 p.m. reveals normal sinus rhythm with a ventricular rate of 60 beats per minute. No ST, T-wave elevation, depression or ectopy noted per my interpretation. Dr. Neal Sinus rhythm rate 60 do not agree with computer read of 130 MI interval 166 QRS 60 QTC 323 no ischemic changes T-wave inversion noted in lead 3 only Repeat EKGs shows a sinus rhythm of 60 with persistent T-wave inversion in lead 3 only no ischemia Discharge Plan Departure Patient Disposition: Home Clinical Impression: Trigeminal neuralgia syndrome Instructions: Trigeminal Neuralgia Activity Restrictions/Additional Instructions: Start the medications today as prescribed Follow up your PCP this week as scheduled Return here for any new, emergent conditions or if you should worsen in any way Prescriptions: New tramadol 50 mg tablet 50 mg PO Q8H PRN (Reason: pain) Qty: 20 0RF gabapentin 300 mg capsule 300 mg PO TID Qty: 20 0RF No Action nitrofurantoin macrocrystal 50 mg capsule 50 mg PO BEDTIME Rx Instructions: must administer with a meal/food ascorbic acid (vitamin C) 500 MG tablet 500 mg PO DAILY Qty: 0 cholecalciferol (vitamin D3) [Vitamin D3] 50 mcg (2,000 unit) capsule 2,000 unit PO DAILY Qty: 0 multivitamin [Multiple Vitamins] Tablet 1 tab PO DAILY calcium citrate-vitamin D3 250 mg-5 mcg (200 unit) tablet 2 tab PO DAILY mecobalamin (vitamin B12) 2,500 mcg tablet,chewable 2,500 mcg PO DAILY biotin 5,000 mcg tablet, sublingual 5,000 mcg sublingual DAILY lutein-zeaxanthin 20 mg- 1,000 mcg capsule 1 cap PO DAILY coQ10 (ubiquinol) [CoQmax Ubiquinol] 100 mg capsule 100 mg PO DAILY Patient Comments: liquid form propranolol 60 mg capsule,extended release 24 hr 60 mg PO DAILY Qty: 90 3RF tramadol 50 mg tablet 25 mg PO BID PRN (Reason: pain) Qty: 5 0RF Rx Instructions: This script was called into [facility] with the pharmacist, per Dr. Barraza's approval Premarin 0.3 mg tablet 0.3 mg PO DAILY Disabled Parking Permit See Rx Instructions .ROUTE .COMPLEX Qty: 1 0RF Rx Instructions: I find this patient to be medically disabled and qualified for Disabled Parking as indicated, and signed, on the accompanying Disabled Parking Application for Individuals ; (DME) [employer] MDI Spacer Spacer See Rx Instructions .Route Qty: 1 0RF Rx Instructions: As directed pantoprazole [Protonix] 40 mg tablet,delayed release (DR/EC) 40 mg PO DAILY Qty: 60 0RF Referrals: Jose Juan Barraza MD [Primary Care Provider] - Stand Alone Forms: Patient Portal/API ED Sign-out <Lala Neal DO - Last Filed: 02/08/24 07:58> Cosign ED Attending Cosignature Attestation: I was available for consultation.
[2024-02-07 16:56] VITALS: BP 125/62; PULSE 60; RESP 16; O2SAT 99
== END 2024-02-07 16:57 | disposition home or self-care (01) ==
PROVIDERS: Emergency Provider Physician Assistant; PCP Family Medicine
DX: G50.0 Trigeminal neuralgia (principal); I10 Essential (primary) hypertension; R00.0 Tachycardia, unspecified
CPT/HCPCS: 71046; 80053; 83880; 84484; 85025; 93005; 93010; 99281; 99284

== ENCOUNTER → 2024-02-25 13:31 | Outpatient (CLI) | payer MEDICARE, BC, SELFPAY ==
[2024-02-18 17:28] VITALS: BMI 26.3
[2024-02-25 14:25] LABS: Hematocrit 39.7 % (36-46)
== END ==
PROVIDERS: PCP Family Medicine; Referring Provider Family Medicine; Visit Provider Family Medicine
DX: D50.9 Iron deficiency anemia, unspecified (principal)
CPT/HCPCS: 85014; 85018

== ENCOUNTER → 2024-12-01 16:40 | Outpatient (CLI) | payer MEDICARE, BC, SELFPAY ==
[2024-02-18 17:28] VITALS: BMI 26.3
[2024-12-01 17:03] LABS: Add Manual Diff / Slide Review NO; Hematocrit 36.3 % (36-46); Hemoglobin 12.0 g/dL (12.0-16.0); Lymphocytes Absolute Auto 700 /uL (1100-4500); Mean Corpuscular HGB Conc 33.1 % (30-36); Mean Corpuscular Hemoglobin 32.7 PG (26-34); Mean Corpuscular Volume 98.7 fL (80-100); Platelet Count 263 X10^3/uL (150-400)
[2024-12-01 17:26] LABS: Alanine Aminotransferase 17 IU/L (<35); Albumin 4.3 g/dL (3.5-5.0); Albumin Globulin Ratio 1.5 (1.0-2.8); Alkaline Phosphatase 66 U/L (38-126); Blood Urea Nitrogen 38 mg/dL (7-17); Calcium 9.4 mg/dL (8.4-10.2); Carbon Dioxide 17 mmol/L (22-32); Chloride 111 mmol/L (98-107); Estimated Glomerular Filt Rate 31 mL/min (>60); Globulin 2.9 g/dL (1.7-4.1); Glucose 108 mg/dL (70-99); HEMOLYSIS 46 (0-50); Potassium 5.1 mmol/L (3.4-5.1); Sodium 139 mmol/L (137-145); Total Protein 7.2 g/dL (6.3-8.2)
[2024-12-01 17:58] LABS: TSH w/ Reflex to FT4 < 0.02 uIU/mL (0.47-4.68)
[2024-12-01 18:30] LABS: Free T4, Direct Thyroxine 1.26 ng/dL (0.78-2.19)
== END ==
PROVIDERS: PCP Family Medicine; Referring Provider Family Medicine; Visit Provider Family Medicine
DX: K26.9 Duodenal ulcer, unspecified as acute or chronic, without hemorrhage or perforation (principal); D64.9 Anemia, unspecified
CPT/HCPCS: 36415; 80053; 84439; 84443; 85025